=== PATIENT | female | born 1950 | race Caucasian/White ===

== ENCOUNTER 2022-11-04 11:25 | Outpatient (OUT) | payer MEDICARE, OTHER, SELFPAY ==
--- NOTE | 2022-11-04 11:27 | MM_ITS ---
Patient: ESDRAS MONTIEL Exam Date: 11/04/2022 : 1950 Gender:F Ordering : DR Rubio Samuel D.O. Admission #: [id number] Family : Order #: [id number] CLICK HERE TO VIEW EXAM RADIOLOGY REPORT PROCEDURE: MM TOMOSYNTHESIS SCREENING BI COMPARISON: MG MAMM SCREEN AMTT W CAD, 01/31/2020. MG MAMM SCREEN MATT W CAD, 07/03/2018. MG MAMM SCREEN MATT W CAD, 06/24/2016. MG MAMM MATT SCRN W CAD DIG, 02/27/2013. INDICATIONS: Screening mammogram Z12.31 Calculator Name NCI Breast Cancer Risk Assessment Tool 5 Year Breast Cancer Risk 3.20% Lifetime Breast Cancer Risk 9.20% Personal Breast Cancer No Personal Ovarian Cancer No Treatments None Family Cancers Mother with breast cancer at age 40. LOCATION: [facility] BREAST COMPOSITION: Scattered areas fibroglandular density. FINDINGS: DIAGNOSTIC CATEGORY 2--BENIGN FINDING: RIGHT BREAST: No significant suspicious finding. No significant change has occurred. LEFT BREAST: No significant suspicious finding. Scattered benign-appearing lymph nodes are present. No significant change has occurred. RECOMMENDATIONS: ROUTINE MAMMOGRAM AND CLINICAL EVALUATION IN 12 MONTHS. PLEASE NOTE: A NORMAL MAMMOGRAM DOES NOT EXCLUDE THE POSSIBILITY OF BREAST CANCER. A CLINICALLY SUSPICIOUS PALPABLE LUMP SHOULD BE BIOPSIED. Dictated by: Alexander Gentile M.D. on 11/04/2022 at 16:17 Approved by: Alexander Gentile M.D. on 11/04/2022 at 16:34
--- NOTE | 2022-11-04 11:36 | XR_ITS ---
[address] [address] Patient Name: ESDRAS MONTIEL MRN: [id number] date: 1950 Sex: F Assigned Patient Location: [facility] Current Patient Location: [facility] Accession/Order Number: [id number] Exam Date: 11/04/2022 11:54 Report Date: 11/04/2022 12:45 At the request of: JOSE CHINCHILLA Procedure: XR knee standing BI EXAMINATION: XR knee standing BI HISTORY: Osteoarthritis of bilateral knees M17.0 ; chronic bilateral hip and knee pain COMPARISON: No relevant comparison available. FINDINGS: RIGHT FINDINGS: BONES: Small periarticular degenerative osteophytes without significant joint space narrowing or articular surface irregularity. SOFT TISSUES: No visible soft tissue swelling. OTHER: Negative. LEFT FINDINGS: BONES: Small periarticular degenerative osteophytes without significant joint space narrowing or articular surface irregularity. SOFT TISSUES: No visible soft tissue swelling. OTHER: Negative. XR/XR knee standing BI IMPRESSION: RIGHT CONCLUSION: Minimal degenerative joint disease of the knee. LEFT CONCLUSION: Minimal degenerative joint disease of the knee. Electronically authenticated by: BENJAMIN RIDDLE Date: 11/04/2022 12:45
--- NOTE | 2022-11-04 11:36 | XR_ITS ---
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 FINDINGS: RIGHT FINDINGS: BONES: Moderate narrowing of the medial-cephalad joint space and suspected small subchondral cysts. Small degenerative osteophytes along the rim of the femoral head. SOFT TISSUES: No visible soft tissue swelling. OTHER: Negative. LEFT FINDINGS: BONES: Mild joint space narrowing. No fracture, dislocation, bone lesion. SOFT TISSUES: No visible soft tissue swelling. OTHER: Negative. XR/XR hip BI w PEL 1V IMPRESSION: RIGHT CONCLUSION: Moderate degenerative joint disease of the right hip. LEFT CONCLUSION: Mild degenerative joint disease of the left hip. Electronically authenticated by: BENJAMIN RIDDLE Date: 11/04/2022 12:48
== END 2022-11-04 11:26 | disposition home or self-care (01) ==
LOC: MAMMO 11:25
PROVIDERS: PCP Internal Medicine; Visit Provider Internal Medicine
DX: Z12.31 Encounter for screening mammogram for malignant neoplasm of breast (principal); Z80.3 Family history of malignant neoplasm of breast; M16.0 Bilateral primary osteoarthritis of hip; M17.0 Bilateral primary osteoarthritis of knee
CPT/HCPCS: 73523; 73565; 77063; 77067

== ENCOUNTER 2022-11-11 11:23 | Outpatient (OUT) | payer MEDICARE, OTHER, SELFPAY ==
[2022-11-11 11:52] LABS: Basophils Percent Auto 0.5 % (0.2-2.0); Eosinophils Absolute Auto 0.3 10^3/uL (0.0-0.7); Eosinophils Percent Auto 3.3 % (0.9-7.0); Hematocrit 37.3 % (36.0-48.0); Hemoglobin 12.1 g/dL (12.0-16.0); Immature Granulocytes Abs Auto 0.02 10^3/uL (0.00-0.03); Immature Granulocytes Pct Auto 0.2 % (0.0-0.5); Lymphocytes Absolute Auto 2.5 10^3/uL (1.2-3.8); Lymphocytes Percent Auto 29.1 % (20.5-60.0); Mean Corpuscular HGB Conc 32.4 g/dL (29.9-35.2); Mean Corpuscular Hemoglobin 27.4 pg (26.7-34.0); Mean Corpuscular Volume 84.6 fL (81.0-99.0); Mean Platelet Volume 9.5 fL (9.5-13.5); Monocytes Absolute Auto 0.7 10^3/uL (0.3-0.8); Neutrophils Percent Auto 58.9 % (43.0-75.0); Platelet Count 340 10^3/uL (150-450); Red Blood Count 4.41 10^6/uL (4.20-5.40); White Blood Count 8.5 10^3/uL (4.0-11.0)
[2022-11-11 12:33] LABS: Alanine Aminotransferase 22 U/L (14-59); Anion Gap 14.7; BUN Creatinine Ratio 19.6; Calcium 9.6 mg/dL (8.5-10.1); Carbon Dioxide 27.3 mmol/L (21.0-32.0); Chloride 101 mmol/L (98-107); Chol HDL Ratio 2.6; Cholesterol 167 mg/dL (<=200); Estimated GFR (African America >60 (>=60); Estimated GFR (Non-African Ame >60 (>=60); Glucose 115 mg/dL (74-106); HDL Cholesterol 65 mg/dL (40-60); Sodium 139 mmol/L (136-145); Thyroid Stimulating Hormone 1.907 uIU/mL (0.358-3.740); Triglycerides 71 mg/dL (<=150); VLDL CHOLESTEROL 14.2 mg/dL
== END 2022-11-11 11:24 | disposition home or self-care (01) ==
PROVIDERS: PCP Internal Medicine; Visit Provider Internal Medicine
DX: E78.00 Pure hypercholesterolemia, unspecified (principal); I10 Essential (primary) hypertension; R53.83 Other fatigue
CPT/HCPCS: 36415; 80048; 80061; 84443; 84460; 85025

== ENCOUNTER 2023-12-13 08:56 | Outpatient (OUT) | payer MEDICARE, OTHER, SELFPAY ==
--- NOTE | 2023-12-13 09:07 | CT_ITS ---
[address] [address] Patient Name: ESDRAS MONTIEL MRN: [id number] date: 1950 Sex: F Assigned Patient Location: MAMMO Current Patient Location: Accession/Order Number: [id number] Exam Date: 12/13/2023 09:45 Report Date: 12/14/2023 06:42 At the request of: JOSE CHINCHILLA Procedure: CT lung screening low-dose EXAMINATION: CT lung screening low-dose HISTORY: Nicotine Dependence COMPARISON: CT chest 11/10/2020 TECHNIQUE: Axial, Coronal, and Sagittal images were created without the administration of IV contrast material. Dose reduction techniques were achieved by using automated exposure control and/or adjustment of mA and/or kV according to patient size and/or use of iterative reconstruction technique. FINDINGS: LUNGS: No visible pulmonary disease. PLEURA: No mass, effusion, or pneumothorax. VASCULATURE: No abnormality. BARTOLO: No mass or pathologic adenopathy. MEDIASTINUM: No mass or pathologic adenopathy. CARDIAC: No enlargement, pericardial thickening, or pericardial effusion. Coronary Artery calcifications: AORTA: No aneurysm or dissection. CHEST WALL: No mass or axillary adenopathy BONES: No bone lesion or fracture. LIMITED ABDOMEN: No suspicious findings. Limited images of the upper abdomen. OTHER: Negative. CT/CT lung screening low-dose IMPRESSION: 1. Lung-RADS Category 1 Negative. No nodules and definitely benign nodules. Continue annual screening with LDCT in 12 months. Electronically authenticated by: BENJAMIN RIDDLE Date: 12/14/2023 06:42
--- NOTE | 2023-12-13 09:07 | MM_ITS ---
Patient Name: ESDRAS MONTIEL MR#: [id number] : 1950 Exam Date: 12/13/2023 Ordering Doctor: DR Rubio Samuel D.O. RADIOLOGY REPORT PROCEDURE: MM TOMOSYNTHESIS SCREENING BI COMPARISON: MM TOMOSYNTHESIS SCREENING BI, 11/04/2022. MG MAMM SCREEN MATT W CAD, 01/31/2020. MG MAMM SCREEN MATT W CAD, 07/03/2018. MG MAMM MATT SCRN W CAD DIG, 02/27/2013. INDICATIONS: Screening Calculator Name NCI Breast Cancer Risk Assessment Tool 5 Year Breast Cancer Risk 3.20% Lifetime Breast Cancer Risk 8.80% Personal Breast Cancer No Personal Ovarian Cancer No Treatments None Family Cancers Mother with breast cancer at age 40. LOCATION: [facility] BREAST COMPOSITION: There are scattered areas of fibroglandular density. FINDINGS: DIAGNOSTIC CATEGORY 2--BENIGN FINDING: RIGHT BREAST: No significant suspicious finding. No significant change has occurred. LEFT BREAST: No significant suspicious finding. Scattered benign-appearing nodules are present. Scattered benign-appearing lymph nodes are present. No significant change has occurred. RECOMMENDATIONS: ROUTINE MAMMOGRAM AND CLINICAL EVALUATION IN 12 MONTHS. PLEASE NOTE: A NORMAL MAMMOGRAM DOES NOT EXCLUDE THE POSSIBILITY OF BREAST CANCER. A CLINICALLY SUSPICIOUS PALPABLE LUMP SHOULD BE BIOPSIED. Dictated by: Alexander Gentile M.D. on 12/13/2023 at 16:59 Approved by: Alexander Gentile M.D. on 12/13/2023 at 17:02
[2023-12-13 10:18] LABS: Alanine Aminotransferase 35 U/L (14-59); Albumin Globulin Ratio 0.9; Albumin Level 3.6 g/dL (3.4-5.0); Alkaline Phosphatase 124 U/L (46-116); Anion Gap 10.3; Aspartate Amino Transferase 17 U/L (15-37); BUN Creatinine Ratio 23.6; Bilirubin Total 0.3 mg/dL (0.2-1.0); Carbon Dioxide 29.9 mmol/L (21.0-32.0); Chloride 101 mmol/L (98-107); Chol HDL Ratio 2.9; Cholesterol 173 mg/dL (<=200); Estimated GFR (African America >60 (>=60); Estimated GFR (Non-African Ame >60 (>=60); Globulin 3.8 g/dL; Glucose 115 mg/dL (74-106); HDL Cholesterol 59 mg/dL (40-60); LDL Cholesterol Calculated 98.4 mg/dL; Potassium 4.2 mmol/L (3.5-5.1); Sodium 137 mmol/L (136-145); Total Protein 7.4 g/dL (6.4-8.2); Triglycerides 78 mg/dL (<=150); VLDL CHOLESTEROL 15.6 mg/dL
[2023-12-13 10:22] LABS: Basophils Percent Auto 0.4 % (0.2-2.0); Eosinophils Absolute Auto 0.5 10^3/uL (0.0-0.7); Eosinophils Percent Auto 6.3 % (0.9-7.0); Hemoglobin 11.8 g/dL (12.0-16.0); Immature Granulocytes Abs Auto 0.02 10^3/uL (0.00-0.03); Immature Granulocytes Pct Auto 0.3 % (0.0-0.5); Lymphocytes Percent Auto 27.7 % (20.5-60.0); Mean Corpuscular HGB Conc 31.9 g/dL (29.9-35.2); Mean Corpuscular Hemoglobin 27.8 pg (26.7-34.0); Mean Corpuscular Volume 87.3 fL (81.0-99.0); Mean Platelet Volume 9.7 fL (9.5-13.5); Monocytes Absolute Auto 0.6 10^3/uL (0.3-0.8); Monocytes Percent Auto 8.2 % (1.7-12.0); Neutrophils Absolute Auto 4.1 10^3/uL (1.4-6.5); Neutrophils Percent Auto 57.1 % (43.0-75.0); Platelet Count 276 10^3/uL (150-450); Red Blood Count 4.24 10^6/uL (4.20-5.40); Red Cell Distribution Width 13.2 % (11.0-15.0); White Blood Count 7.2 10^3/uL (4.0-11.0)
== END 2023-12-13 08:57 | disposition home or self-care (01) ==
LOC: MAMMO 08:58
PROVIDERS: PCP Internal Medicine; Visit Provider Internal Medicine
DX: E78.00 Pure hypercholesterolemia, unspecified (principal); F17.211 Nicotine dependence, cigarettes, in remission; I10 Essential (primary) hypertension; I65.29 Occlusion and stenosis of unspecified carotid artery; Z12.31 Encounter for screening mammogram for malignant neoplasm of breast; Z80.3 Family history of malignant neoplasm of breast
CPT/HCPCS: 36415; 71271; 77063; 77067; 80053; 80061; 85025

== ENCOUNTER 2024-12-21 09:26 | Outpatient (OUT) | payer MEDICARE, OTHER, SELFPAY ==
--- OUTSIDE RECORDS SUMMARY | 2024-12-21 09:41 | XMS_ITS | CCD ---
Author Organization [facility] Care Team Providers Care Shell Maker Lockstitch Name Role Phone PHYSICIAN, DEFAULT Unavailable Unavailable PHYSICIAN, DEFAULT Unavailable Unavailable LUIS HAYNES Unavailable Unavailable Fidelia Velásquez Unavailable DO Rubio Samuel Primary Care Provider [phone] MD Fransico Brady Attending Provider PAUL, DR TANGELA Curran Admitting Unavailable MILLER, DR TANGELA Curran Attending Unavailable BALL, DR GARCIA Primary Care Unavailable MILLER, DR TANGELA Curran Consulting Unavailable WEST, DR RIVERA Stephens Consulting Unavailable ZIEBER, DR ALEXANDER Lei Consulting Unavailable GRECHKARAN, JAIME CARBAJAL Consulting Unavailable SISTER, AMILCAR Consulting Unavailable BALL, DR GARCIA Admitting Unavailable BALL, DR GARCIA Attending Unavailable BALL, DR GARCIA Consulting Unavailable BALL, DR GARCIA Primary Care Unavailable ZIEBER, DR ALEXANDER Lei Consulting Unavailable BALL, DR GARCIA Attending Unavailable BALL, DR GARCIA Consulting Unavailable BALL, DR GARCIA Primary Care Unavailable BALL, DR GARCIA Admitting Unavailable BALL, DR GARCIA Admitting Unavailable BALL, DR GARCIA Attending Unavailable BALL, DR GARCIA Consulting Unavailable BALL, DR GARCIA Primary Care Unavailable BALL, DR GARCIA Admitting Unavailable BALL, DR GARCIA Attending Unavailable BALL, DR GARCIA Consulting Unavailable BALL, DR GARCIA Primary Care Unavailable BALL, DR GARCIA Admitting Unavailable BALL, DR GARCIA Attending Unavailable BALL, DR GARCIA Primary Care Unavailable PAY, DR SHEPARD Attending Unavailable BALL, DR GARCIA Primary Care Unavailable PAY, DR SHEPARD Admitting Unavailable GRECHKARAN, JAIME CARBAJAL Consulting Unavailable TAYLOR HONEYCUTT Consulting Unavailable Rubio Samuel Unavailable DO Rubio Samuel Primary Care Provider SHANTA Velásquez Attending Provider Rubio Samuel DO Primary Care Provider [phone] Didier ODD PIECE CHECKER-CFidelia Attending Provider Fidelia Velásquez Attending Unavailable Rubio Samuel Primary Care Unavailable Fidelia Velásquez Admitting Unavailable Fidelia Velásquez Attending Unavailable Rubio Samuel Primary Care Unavailable Fidelia Velásquez Admitting Unavailable Rubio Samuel DO Primary Care Provider [phone] Didier ODD PIECE CHECKER-CFidelia Attending Provider Rubio Samuel DO Attending Provider [phone] Allergies Allergy Classification Reported Allergen(s) Allergy Type Date of Onset Reaction(s) Facility (10 sources) Acetaminophen / HYDROcodone; Translations: [Vicodin] Drug Allergy stomach upset [facility] Repository (9 sources) Acetaminophen; Translations: [acetaminophen] Drug Allergy 03-17-20 22 Shakiness, Shakiness, stomach upset [facility] (9 sources) HYDROcodone; Translations: [hydrocodone] Drug Allergy 03-17-20 22 Shakiness, Shakiness, stomach upset [facility] (10 sources) nabumetone Drug Allergy 09-05-19 24 Unknown, Unknown Reaction [facility] (2 sources) patient allergy list reviewed by nurse or physicia Propensity to adverse reactions 04-13-19 14 Comment:Done [facility] Other (1 source) nabumetone Drug Allergy 09-19-19 25 [facility] Repository Medications Current Medications Medication Drug Class(es) Dates Sig (Normalized) Sig (Original) ascorbic acid 1000 mg oral tablet (9 sources) Vitamin C Start: 08-06-2021 take 1 g by mouth once daily Ascorbic Acid (Vitamin C) (Vitamin C) 1,000 mg Tablet Active 1 GM PO Daily August 06, 2021 12:00am Complies with drug therapy aspirin 81 mg oral tablet (12 sources) Platelet Aggregation Inhibitor, Nonsteroidal Anti-inflammatory Drug Start: 03-17-2022 take 1 tablet by mouth once daily Aspirin 81 mg Tablet Active 81 MG PO Daily March 17, 2022 1:00am Complies with drug therapy take 1 tablet by andrea th every twenty-four hours Aspirin 81 MG 1 tablet Orally Once a day Active atorvastatin 20 mg oral tablet (20 sources) HMG-CoA Reductase Inhibitor Start: 11-20-2024 take 1 tablet by mouth once daily in the evening Atorvastatin 20 mg tablet Active 20 MG PO Every evening November 20, 2024 5:43pm Complies with drug therapy Start: 12-01-2023 End: 11-20-2024 take 1 tablet by mouth once daily in the evening Atorvastatin 20 mg tablet Discontinued 0 .ROUTE .COMPLEX December 01, 2023 9:59am November 20, 2024 5:44pm TAKE 1 TABLET BY MOUTH EVERY EVENING Start: 03-17-2022 End: 12-01-2023 take 1 tablet by mouth at bedtime Atorvastatin 20 mg tablet Discontinued 20 MG PO Bedtime March 17, 2022 1:00am December 01, 2023 10:00am celecoxib 200 mg oral capsule (11 sources) Nonsteroidal Anti-inflammatory Drug Start: 02-19-2024 take 1 capsule by mouth once daily at mealtime Celecoxib 200 mg capsule Active 0 .ROUTE .COMPLEX February 19, 2024 7:17pm TAKE 1 CAPSULE BY MOUTH DAILY WITH FOOD Complies with drug therapy Start: 08-16-2023 End: 02-19-2024 take 1 capsule by mouth once daily Celecoxib 200 mg capsule Discontinued 200 MG PO Daily August 16, 2023 12:00am February 19, 2024 7:17pm take 1 capsule by mo [facility] once daily at mealtime Celecoxib 200 mg TAKE 1 CAPSULE BY MOUTH WITH FOOD DAILY Active cholecalciferol 0.125 mg oral tablet (9 sources) Vitamin D Start: 08-06-2021 take 1 tablet by mouth once daily Cholecalciferol (Vitamin D3) (Vitamin D3) 125 mcg (5,000 unit) Tablet Active 125 MCG PO Daily August 06, 2021 12:00am Complies with drug therapy escitalopram 10 mg oral tablet (20 sources) Serotonin Reuptake Inhibitor Start: 11-20-2024 take 1 tablet by mouth once daily Escitalopram Oxalate 10 mg tablet Active 10 MG PO Daily November 20, 2024 5:44pm Complies with drug therapy Start: 06-06-2023 End: 11-20-2024 take 1 tablet by mouth once daily at bedtime Escitalopram Oxalate 10 mg tablet Discontinued 0 .ROUTE .COMPLEX May 30, 2024 2:16pm November 20, 2024 5:44pm TAKE 1 TABLET BY MOUTH ONCE DAILY AT BEDTIME Start: 08-06-2021 End: 06-06-2023 take 1 tablet by mouth once daily Escitalopram Oxalate 10 mg tablet Discontinued 10 MG PO Daily 90 90 May 23, 2023 6:53pm June 06, 2023 1:58pm famotidine 40 mg oral tablet (20 sources) Histamine-2 Receptor Antagonist Start: 06-06-2023 End: 05-30-2024 take 1 tablet by mouth in the evening Famotidine 40 mg tablet Active 0 .ROUTE .COMPLEX May 30, 2024 2:16pm TAKE 1 TABLET BY MOUTH IN THE EVENING Complies with drug therapy Start: 06-06-2023 take 1 tablet by andrea th in the evening Famotidine Active 0 .ROUTE .COMPLEX June 06, 2023 1:57pm TAKE 1 TABLET BY MOUTH IN THE EVENING Start: 03-17-2022 End: 06-06-2023 take 1 tablet by mouth once daily Famotidine 40 mg tablet Discontinued 40 MG PO Daily March 17, 2022 1:00am June 06, 2023 1:58pm ferrous sulfate 325 mg oral tablet (8 sources) Start: 03-17-2022 take 1 tablet by mouth once daily Ferrous Sulfate (Iron) 325 mg (65 mg iron) Tablet Active 325 MG PO Daily March 17, 2022 1:00am Complies with drug therapy gabapentin 100 mg oral capsule (16 sources) Anti-epileptic Agent Start: 11-06-2024 take 2 capsules by mouth once daily at bedtime Gabapentin 100 mg capsule Active 200 MG PO Daily at bedtime 180 November 06, 2024 8:22am Complies with drug therapy Start: 11-14-2023 End: 11-06-2024 take 2 capsules by mouth at bedtime Gabapentin 100 mg capsule Discontinued 0 .ROUTE .COMPLEX 180 May 06, 2024 10:01am November 06, 2024 8:23am TAKE 2 CAPSULES BY MOUTH AT BEDTIME Start: 11-14-2023 take 2 capsules by m outh at bedtime Gabapentin Active 0 .ROUTE .COMPLEX 180 November 14, 2023 1:12pm TAKE 2 CAPSULES BY MOUTH AT BEDTIME Start: 08-16-2023 End: 11-14-2023 take 1 capsule by mouth once daily Gabapentin 100 mg capsule Discontinued 100 MG PO Daily August 16, 2023 12:00am November 14, 2023 1:12pm take 2 capsules by m outh once daily at bedtime Gabapentin 100 MG TAKE 2 CAPSULE BY MOUTH DAILY AT BEDTIME Orally q HS for 90 days Active take 1 capsule by mo [facility] once at bedtime Gabapentin 100 MG 1 capsule Orally Once a day, q HS for 30 days Active hydroCHLOROthiazide 25 mg / lisinopril 20 mg oral tablet (20 sources) Thiazide Diuretic, Angiotensin Converting Enzyme Inhibitor Start: 11-20-2024 take 1 tablet by mouth once daily Lisinopril-Hydrochlorothiazide 20-25 mg tablet Active 1 TAB PO Daily 90 November 20, 2024 5:43pm Complies with drug therapy Start: 12-01-2023 End: 11-20-2024 take 1 tablet by mouth once daily Lisinopril-Hydrochlorothiazide 20-25 mg tablet Discontinued 0 .ROUTE .COMPLEX December 01, 2023 10:00am November 20, 2024 5:44pm TAKE 1 TABLET BY MOUTH DAILY Start: 08-06-2021 End: 12-01-2023 take 1 tablet by mouth once daily Lisinopril-Hydrochlorothiazide 20-25 mg tablet Discontinued 1 TAB PO Daily August 06, 2021 12:00am December 01, 2023 10:00am Lisinopril-hydro CHLOROthiazide 20-25 MG Oral for 90 Days Active hydrocortisone 10 mg/ml / neomycin 3.5 mg/ml / polymyxin b [id number] unt/ml otic suspension (2 sources) Aminoglycoside Antibacterial, Polymyxin-class Antibacterial, Corticosteroid Start: 11-11-2022 [id number] 4 drops into affected ear Otic Three times a day for 7 days Nov, Active metoprolol tartrate 25 mg oral tablet (20 sources) beta-Adrenergic Gerardo Start: 11-20-2024 take 1 tablet by mouth twice daily Metoprolol Tartrate 25 mg tablet Active 25 MG PO Twice daily 180 November 20, 2024 5:44pm Complies with drug therapy Start: 12-01-2023 End: 11-20-2024 take 1 tablet by mouth twice daily Metoprolol Tartrate 25 mg tablet Discontinued 0 .ROUTE .COMPLEX 180 December 01, 2023 9:59am November 20, 2024 5:44pm TAKE 1 TABLET BY MOUTH TWICE DAILY Start: 08-06-2021 End: 12-01-2023 take 1 tablet by mouth twice daily Metoprolol Tartrate 25 mg tablet Discontinued 25 MG PO Twice daily August 06, 2021 12:00am December 01, 2023 10:00am Start: 08-06-2021 take 25 mg by mouth once daily Metoprolol Tartrate Active 25 MG PO Daily August 05, 2021 11:00pm Geauuxhkpjgq-Ltqtbafe-Zaizwo (Multivitamin 50 Plus) Tablet (9 sources) Start: 08-06-2021 Zoxhdjwbrjcc-Sdyhcomx-Wqpwif (Multivitamin 50 Plus) Tablet Active 1 TAB PO Daily August 06, 2021 12:00am Complies with drug therapy Start: 08-06-2021 Multivitamin-M inerals-Lutein (Multivitamin 50 Plus) Tablet Active 1 TAB PO Daily August 06, 2021 12:00am Start: 08-06-2021 Multivitamin-M inerals-Lutein (Multivitamin 50 Plus) Tablet Active 1 TAB PO Daily August 05, 2021 11:00pm [place] 2-Lar-Uuh-Fish Oil (Fish Oil) 1,000 mg (120 mg-180 mg) Capsule (9 sources) Start: 08-06-2021 take 1 capsule by mouth once daily [place] 7-Ofp-Mqr-Fish Oil (Fish Oil) 1,000 mg (120 mg-180 mg) Capsule Active 1 CAP PO Daily August 06, 2021 12:00am Complies with drug therapy Start: 08-06-2021 take 1 capsule by [facility] once daily [place] 7-Fqt-Yuw-Fish Oil (Fish Oil) 1,000 mg (120 mg-180 mg) Capsule Active 1 CAP PO Daily August 06, 2021 12:00am Start: 08-06-2021 take 1 capsule by [facility] once daily [place] 9-Yah-Mid-Fish Oil (Fish Oil) 1,000 mg (120 mg-180 mg) Capsule Active 1 CAP PO Daily August 05, 2021 11:00pm Semaglutide (2 sources) Start: 06-11-2024 Semaglutide (O zempic) 0.25 mg or 0.5 mg (2 mg/3 mL) pen injector Active 0.25 MG SUBCUT every week June 11, 2024 12:00am for 4 weeks Complies with drug therapy Start: 06-11-2024 Semaglutide (O zempic) 0.25 mg or 0.5 mg (2 mg/3 mL) pen injector Active 0.25 MG SUBCUT every week June 11, 2024 12:00am for 4 weeks traMADol hydrochloride 50 mg oral tablet (20 sources) Opioid Agonist Start: 03-07-2024 End: 12-05-2024 take 1 tablet by mouth every six hours as needed for pain Tramadol 50 mg tablet Active 50 MG PO Every 6 hours as needed for pain 120 December 05, 2024 4:33pm Complies with drug therapy Start: 08-06-2021 End: 03-07-2024 take 1 tablet by mouth four times daily as needed for pain Tramadol 50 mg tablet Discontinued 50 MG PO Four times daily as needed for Pain 120 October 31, 2023 10:08am March 07, 2024 9:33pm ubidecarenone 200 mg oral capsule (9 sources) Start: 08-06-2021 Coenzyme Q10 ( Co Q-10) 200 mg Capsule Active 200 MG PO Daily August 06, 2021 12:00am Complies with drug therapy Vitamin B Complex (6 sources) Start: 08-06-2021 take 1 tablet by mouth once daily Vitamin B Complex Active 1 TAB PO Daily August 06, 2021 12:00am Start: 08-06-2021 take 1 tablet by mouth once da alla Vitamin B Complex Active 1 TAB PO Daily August 05, 2021 11:00pm Vitamin B Complex Tablet (3 sources) Start: 08-06-2021 take 1 tablet by mouth once daily Vitamin B Complex Tablet Active 1 TAB PO Daily August 06, 2021 12:00am Complies with drug therapy Start: 08-06-2021 take 1 tablet by mouth once da alla Vitamin B Complex Tablet Active 1 TAB PO Daily August 06, 2021 12:00am Start: 08-06-2021 take 1 tablet by mouth once da alla Vitamin B Complex Tablet Active 1 TAB PO Daily August 05, 2021 11:00pm Zinc (8 sources) Start: 03-17-2022 take 1 tablet by andrea th once daily Zinc 50 mg Tablet Active 50 MG PO Daily March 17, 2022 1:00am Complies with drug therapy Start: 03-17-2022 take 1 tablet by mouth once da alla Zinc 50 mg Tablet Active 50 MG PO Daily March 17, 2022 1:00am Start: 03-17-2022 take 1 tablet by mouth once da alla Zinc 50 mg Tablet Active 50 MG PO Daily March 17, 2022 12:00am Start: 03-17-2022 take 50 mg by mouth once daily Zinc Active 50 MG PO Daily March 17, 2022 1:00am Start: 03-17-2022 take 50 mg by mouth once daily Zinc Active 50 MG PO Daily March 17, 2022 12:00am Completed/Discontinued Medications Medication Drug Class(es) Dates Sig (Normalized) Sig (Original) hyoscyamine sulfate 0.125 mg sublingual tablet (9 sources) Start: 08-06-2021 End: 03-17-2022 take 1 tablet under the tongue four times daily as needed Hyoscyamine Sulfate 0.125 mg tablet, sublingual Discontinued 0.125 MG SUBLINGUAL Four times daily as needed for Abdominal Discomfort August 06, 2021 12:00am March 17, 2022 1:42pm ondansetron 4 mg disintegrating oral tablet (9 sources) Serotonin-3 Receptor Antagonist Start: 08-06-2021 End: 03-17-2022 Ondansetron 4 mg tablet,disintegra ting Discontinued 4 MG TRANSLINGU Q6H as needed for Nausea August 06, 2021 12:00am March 17, 2022 1:42pm promethazine hydrochloride 25 mg oral tablet (9 sources) Phenothiazine Start: 08-06-2021 End: 03-17-2022 take 1 tablet by mouth every six hours as needed for nausea Promethazine 25 mg tablet Discontinued 25 MG PO Every 6 hours as needed for Nausea August 06, 2021 12:00am March 17, 2022 1:42pm Problems Active Problems Problem Classification Problem Date Documented Da te Episodic/Chronic Acute and unspecified renal failure (4 sources) Acute kidney failure, unspecified; Translations: [Acute renal failure syndrome] Episodic Anxiety disorders (16 sources) Anxiety disorder, unspecified; Translations: [Generalized anxiety disorder] Onset: 02-02-2022 Chronic Cardiac dysrhythmias (4 sources) Ventricular premature depolarization; Translations: [Ventricular premature complex] Onset: 02-17-2017 Chronic Cardiac dysrhythmias (2 sources) Palpitations; Translations: [Palpitations] Episodic Chronic kidney disease (1 source) Chronic kidney disease; Translations: [CHRONIC KIDNEY DISEASE STAGE 3A] Onset: 06-25-2021 Chronic obstructive pulmonary disease and bronchiectasis (2 sources) Simple chronic bronchitis; Translations: [Simple chronic bronchitis] Chronic Conditions associated with dizziness or vertigo (2 sources) Dizziness and giddiness; Translations: [Dizziness and giddiness] Episodic Deficiency and other anemia (2 sources) Iron deficiency anemia secondary to blood loss (chronic); Translations: [IRON DEFIC ANEMIA SEC BLD LOSS CHRN] Onset: 03-30-2022 Chronic Deficiency and other anemia (1 source) Anemia due to chronic blood loss; Translations: [Iron deficiency anemia secondary to blood loss (chronic)] Chronic Deficiency and other anemia (13 sources) Iron deficiency anemia; Translations: [Iron deficiency anemia, unspecified] 03-17-2022 Episodic Comment on above: Problem List clean-u p per request of Phys. EHR Cmte Deficiency and other anemia (3 sources) Iron deficiency anemia, unspecified; Translations: [Iron deficiency anemia, unspecified] Onset: 02-02-2022 03-17-2022 Episodic Diseases of white blood cells (1 source) Elevated white blood cell count, unspecified; Translations: [ELEVATED WHITE BLOOD CELL COUNT UNS] Onset: 02-02-2022 Chronic Disorders of lipid metabolism (20 sources) Familial hypercholesterolemi a; Translations: [Hyperlipidemia] Onset: 04-05-2017 Chronic Esophageal disorders (17 sources) Gastro-esophageal reflux disease without esophagitis; Translations: [Gastroesophageal reflux disease without esophagitis] 08-14-2023 Chronic Essential hypertension (20 sources) Essential (primary) hypertension; Translations: [Essential hypertension] Onset: 02-02-2022 Chronic Fluid and electrolyte disorders (2 sources) Dehydration; Translations: [Hypokalemia] Onset: 07-14-2021 Episodic Hypertension with complications and secondary hypertension (6 sources) Hypertensive chronic kidney disease with stage 1 through stage 4 chronic kidney disease, or unspecified chronic kidney disease; Translations: [Malignant hypertensive chronic kidney disease] Onset: 06-22-2021 Chronic Immunizations and screening for infectious disease (2 sources) Encounter for immunization; Translations: [Vaccination given] Episodic Intestinal infection (9 sources) Enterocolitis due to Clostridium difficile, not specified as recurrent; Translations: [Viral intestinal infection, unspecified] Onset: 10-14-2017 Resolved: 07-19-2019 Episodic Menopausal disorders (2 sources) Primary ovarian failure; Translations: [Other primary ovarian failure] Onset: 04-20-2018 Chronic Miscellaneous mental health disorders (2 sources) Primary insomnia; Translations: [Primary insomnia] Chronic Mood disorders (12 sources) Major depressive disorder, single episode, unspecified; Translations: [Depression] Onset: 02-02-2022 08-14-2023 Chronic Mood disorders (1 source) Mood disorders; Translations: [Depression, unspecified] Nonspecific chest pain (10 sources) Chest pain, unspecified; Translations: [Precordial pain] Onset: 01-11-2014 Episodic Nutritional deficiencies (3 sources) Vitamin D deficiency, unspecified; Translations: [Vitamin D deficiency] Onset: 06-25-2021 Chronic Occlusion or stenosis of precerebral arteries (20 sources) Occlusion and stenosis of multiple and bilateral cerebral arteries; Translations: [Occlusion and stenosis of bilateral carotid arteries] Onset: 01-29-2022 Chronic Comment on above: Carotid US: 50-69% B /L stenosis - 08/2022, 09/2023, 01/2024 Osteoarthritis (20 sources) Unspecified osteoarthritis, unspecified site; Translations: [Osteoarthritis] Onset: 07-14-2021 08-16-2023 Chronic Other aftercare (1 source) bed bug exterminator (current) use of aspirin; Translations: [HALFWAY CURRENT USE OF ASPIRIN] Onset: 02-02-2022 Episodic Other aftercare (2 sources) Other longwall foreman (current) drug therapy; Translations: [OTH HALFWAY CURRENT DRUG THERAPY] Onset: 02-02-2022 Episodic Other aftercare (4 sources) Drug therapy finding; Translations: [halfway (current) use of opiate analgesic] 05-18-2024 Episodic Other aftercare (2 sources) bed bug exterminator (current) use of opiate analgesic; Translations: [Long-term (current) use of other medications] 05-18-2024 Episodic Other ear and sense organ disorders (2 sources) Otitis externa of left ear; Translations: [Other otitis externa, left ear] Chronic Other ear and sense organ disorders (2 sources) Malignant otitis externa; 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 BOOGIE Cmte Other gastrointestinal disorders (5 sources) Diarrhea, unspecified; Translations: [DIARRHEA UNSPECIFIED] Onset: 07-10-2021 Episodic Other hereditary and degenerative nervous system conditions (2 sources) Restless legs; Translations: [Restless legs syndrome] Chronic Other hereditary and degenerative nervous system conditions (1 source) Restless legs syndrome Chronic Other injuries and conditions due to external causes (1 source) History of falling; Translations: [History of falling] Episodic Other injuries and conditions due to external causes (1 source) History of fall; Translations: [History of falling] Episodic Other non-traumatic joint disorders (2 sources) Arthralgia of the lower leg; Translations: [Pain in right knee] Episodic Other non-traumatic joint disorders (1 source) Shoulder joint pain; Translations: [Pain in joint, shoulder region] Episodic Other nutritional; endocrine; and metabolic disorders (2 sources) Simple obesity ; Translations: [Other obesity due to excess calories] Onset: 02-10-2016 Chronic Other nutritional; endocrine; and metabolic disorders (6 sources) Obesity; Translations: [Obesity, unspecified] 05-18-2024 Chronic Other nutritional; endocrine; and metabolic disorders (2 sources) Obese class I; Translations: [Body mass index 32.0-32.9, adult] Onset: 02-15-2017 Chronic Other nutritional; endocrine; and metabolic disorders (1 source) Severe obesity; Translations: [Morbid (severe) obesity due to excess calories] Chronic Other nutritional; endocrine; and metabolic disorders (1 source) Body mass index 30+ - obesity; Translations: [Body mass index (BMI) 37.0-37.9, adult] Chronic Other nutritional; endocrine; and metabolic disorders (1 source) Morbid (severe) obesity due to excess calories Chronic Other nutritional; endocrine; and metabolic disorders (1 source) Body mass index (BMI) 37.0-37.9, adult Chronic Other nutritional; endocrine; and metabolic disorders (2 sources) Obesity, unspecified; Translations: [Obesity, unspecified] 05-18-2024 Chronic Other screening for suspected conditions (not mental disorders or infectious disease) (8 sources) Abnormal results of thyroid function studies; Translations: [Other specified abnormal findings of blood chemistry] Onset: 03-30-2022 11-29-2023 Episodic Residual codes; unclassified (1 source) Requires influenza virus vaccination; Translations: [Need for prophylactic vaccination and inoculation, Influenza] Episodic Septicemia (except in labor) (2 sources) Other specified sepsis; Translations: [Severe sepsis without septic shock] Onset: 02-02-2022 Episodic Spondylosis; intervertebral disc disorders; other back problems (20 sources) Lumbar spondylosis; Translations: [Spondylosis without myelopathy or radiculopathy, lumbar region] Chronic Substance-related disorders (20 sources) Smoker; Translations: [Nicotine dependence, unspecified, uncomplicated] Onset: 12-14-2013 Chronic Comment on above: Start age 17, 1 ppd, age quit 72.LDCT w/o suspicious nodules: 12/2023, Syncope (3 sources) Syncope and collapse; Translations: [SYNCOPE AND COLLAPSE] Onset: 01-25-2022 Episodic Thyroid disorders (3 sources) Other specified hypothyroidism; Translations: [Hypothyroidism] Onset: 02-02-2022 Chronic Thyroid disorders (6 sources) Sick-euthyroid syndrome; Translations: [Sick-euthyroid syndrome] Onset: 03-22-2022 Episodic Unclassified (1 source) ACIDOSIS UNSPECIFIED; Translations: [ACIDOSIS UNSPECIFIED] Onset: 02-02-2022 Unclassified (1 source) PERSONAL HISTORY OF COVID-19; Translations: [PERSONAL HISTORY OF COVID-19] Onset: 02-02-2022 Unclassified (1 source) CONTACT W/AND (SUSP) EXPOS COVID-19; Translations: [CONTACT W/AND (SUSP) EXPOS COVID-19] Onset: 02-02-2022 Unclassified (1 source) Other screening mammogram; Translations: [Other screening mammogram] Onset: 02-10-2016 Unclassified (2 sources) Elevation of levels of liver transaminase levels; Translations: [Elevation of levels of liver transaminase levels] Unclassified (1 source) Pain in joint, shoulder region; Translations: [Pain in joint, shoulder region] Unclassified (1 source) Bacterial infection, unspecified, in conditions classified elsewhere and of unspecified site; Translations: [Bacterial infection, unspecified, in conditions classified elsewhere and of unspecified site] Onset: 07-31-2018 Unclassified (1 source) Need for prophylactic vaccination and inoculation, Influenza; Translations: [Need for prophylactic vaccination and inoculation, Influenza] Viral infection (2 sources) COVID-19; Translations: [Disease caused by 2019-nCoV] Past or Other Problems Problem Classification Problem Date Documented Date Episodic/Chronic Abdominal hernia (2 sources) Diaphragmatic hernia; Translations: [Diaphragmatic hernia without obstruction or gangrene] Onset: 03-17-2022 Episodic Abdominal pain (2 sources) Abdominal pain; Translations: [Unspecified abdominal pain] Onset: 09-03-2014 Episodic Acute bronchitis (2 sources) Acute bronchitis, unspecified; Translations: [Acute bronchitis] Onset: 01-11-2014 Episodic Bacterial infection; unspecified site (1 source) Bacterial infectious disease; Translations: [Bacterial infection, unspecified, in conditions classified elsewhere and of unspecified site] Onset: 07-31-2018 Episodic Esophageal disorders (1 source) Esophageal disorders Malaise and fatigue (2 sources) Other malaise and fatigue; Translations: [Malaise and fatigue] Onset: 04-05-2017 Episodic Nausea and vomiting (1 source) Vomiting, unspecified; Translations: [VOMITING UNSPECIFIED] Onset: 07-14-2021 Episodic Other circulatory disease (1 source) Other specified symptoms and signs involving the circulatory and respiratory systems; Translations: [Other specified symptoms and signs involving the circulatory and respiratory systems] Resolved: 06-22-2021 Episodic Other circulatory disease (3 sources) Cardiovascular symptoms; Translations: [Other specified symptoms and signs involving the circulatory and respiratory systems] Resolved: 06-22-2021 Episodic Other liver diseases (2 sources) Elevated levels of transaminase & lactic acid dehydrogenase; Translations: [Nonspecific elevation of levels of transaminase or lactic acid dehydrogenase (LDH)] Onset: 09-03-2014 Episodic Other lower respiratory disease (1 source) Other forms of dyspnea; Translations: [Other forms of dyspnea] Onset: 02-17-2017 Episodic Other lower respiratory disease (1 source) Dyspnea; Translations: [Other forms of dyspnea] Onset: 02-17-2017 Episodic Other nervous system disorders (2 sources) Ataxia; Translations: [Ataxia, unspecified] Resolved: 07-13-2021 Episodic Other upper respiratory infections (2 sources) Acute recurrent maxillary sinusitis; Translations: [Acute maxillary sinusitis] Onset: 07-31-2018 Episodic Residual codes; unclassified (1 source) Tobacco use; Translations: [Tobacco use] Onset: 12-14-2013 Episodic Residual codes; unclassified (1 source) Disorientation, unspecified; Translations: [Disorientation, unspecified] Resolved: 06-21-2021 Episodic Residual codes; unclassified (3 sources) Tobacco user; Translations: [Nondependent tobacco use disorder] Onset: 12-14-2013 Episodic Residual codes; unclassified (3 sources) Disorientated; Translations: [Disorientation, unspecified] Resolved: 06-21-2021 Episodic Results Test Name Value Interpretation Reference Range Facility US carotid doppler BIon 09-02 US carotid doppler BI [facility] [address] [place] [address] Ultrasound Report Signed Patient: Ruby Verdugo MR#: [id number] 87 : 1950 Acct:[id number] Age/Sex: 73 / F ADM Date: 09/18/24 Loc: [facility] Room: Type: [facility] Attending Dr: Fidelia Velásquez ODD PIECE CHECKER-C Ordering Provider: Fidelia Velásquez APRN Date of Service: 09/18/24 US/US carotid doppler BI: I65.23 - Occlusion and stenosis of bilateral carotid apple... Copies to: Fidelia Velásquez APRN CAROTID DUPLEX INDICATION: Follow-up known carotid occlusive disease PROCEDURE: Color-flow duplex scanning is used to interrogate the extracranial carotid arterial system, as well as both vertebral arteries. Both carotid bifurcations show moderate heterogeneous plaque formation. The proximal right internal carotid artery shows a highest peak systolic velocity of 201 cm/s with an end-diastolic velocity of 69.5 cm/s . The mid internal carotid artery measures 91.7 cm/s peak systolic and 31.4 cm/s end diastolic. The distal segment measures 107 cm/s peak systolic with an end diastolic velocity of 36.1 cm/s . The velocities of the right common carotid artery are 83.9 cm/s peak systolic and 15.5 cm/s end-diastolic proximally and 69.3 cm/s peak systolic and 20.1 cm/s end diastolic distally. The peak systolic velocity ratio of the internal to the common carotid artery is 2.9. The right external carotid artery measures 115 cm/s peak systolic. The right vertebral artery is patent at 92.6 cm/s with antegrade flow. The proximal left internal carotid artery shows a highest peak systolic velocity of 92.2 cm/s with an end-diastolic velocity of 25.2 cm/s . The mid internal carotid artery measures 88.9 cm/s peak systolic and 19.8 cm/s end diastolic. The distal segment measures 216 cm/s peak systolic with an end diastolic velocity of 79 cm/s . The velocities of the left common carotid artery are 79.2 cm/s peak systolic and 16.5 cm/s end-diastolic proximally and 69 cm/s peak systolic and 17.2 cm/s end diastolic distally. The peak systolic velocity ratio of the internal to the common carotid artery is 3.13 . The left external carotid artery measures 82.6 cm/s peak systolic. The left vertebral artery is patent at 146 cm/s with antegrade flow. US/US carotid doppler BI IMPRESSION: MODERATE PLAQUE FORMATION IS NOTED BILATERAL EXTRACRANIAL CAROTID ARTERIES. MODERATE STENOSIS OF 50-69% WAS FOUND IN THE BILATERAL INTERNAL CAROTID ARTERIES. Impression dictated by: Drea Greene M.D. 09/18/2024 1:54 PM Dictation Location: [place] [address] Tech: Mendy Mcintyre Transcribed By: ORQUIDEA 09/18/24 1354 Dictated By: Drea Greene MD 09/18/24 1353 Signed By: 09/18/24 1354 Normal [facility] US carotid doppler BIon 12- US carotid doppler BI [facility] [address] [place] [address] Ultrasound Report Signed Patient: Ruby Verdugo MR#: [id number] 87 : 1950 Acct:[id number] Age/Sex: 73 / F ADM Date: 03/13/24 Loc: [facility] Room: Type: [facility] Attending Dr: Fidelia Velásquez ODD PIECE CHECKER-C Ordering Provider: Fidelia Velásquez APRN Date of Service: 03/13/24 US/US carotid doppler BI: I65.23 - Occlusion and stenosis of bilateral carotid apple... Copies to: Fidelia Velásquez APRN CAROTID DUPLEX INDICATION: Follow-up known carotid occlusive disease PROCEDURE: Color-flow duplex scanning is used to interrogate the extracranial carotid arterial system, as well as both vertebral arteries. Both carotid bifurcations show mild to moderate heterogeneous plaque formation. The proximal right internal carotid artery shows a highest peak systolic velocity of 232 cm/s with an end-diastolic velocity of 56.2 cm/s . The mid internal carotid artery measures 95.3 cm/s peak systolic and 25.5 cm/s end diastolic. The distal segment measures 83.4 cm/s peak systolic with an end diastolic velocity of 22.8 cm/s . The velocities of the right common carotid artery are 101 cm/s peak systolic and 0 cm/s end-diastolic proximally and 88.2 cm/s peak systolic and 18.6 cm/s end diastolic distally. The peak systolic velocity ratio of the internal to the common carotid artery is 2.63. The right external carotid artery measures 138 cm/s peak systolic. The right vertebral artery is patent at 80.8 cm/s with antegrade flow. The proximal left internal carotid artery shows a highest peak systolic velocity of 114 cm/s with an end-diastolic velocity of 18.2 cm/s . The mid internal carotid artery measures 198 cm/s peak systolic and 48.8 cm/s end diastolic. The distal segment measures 204 cm/s peak systolic with an end diastolic velocity of 59.8 cm/s . The velocities of the left common carotid artery are 119 cm/s peak systolic and 16.2 cm/s end-diastolic proximally and 94.4 cm/s peak systolic and 17.3 cm/s end diastolic distally. The peak systolic velocity ratio of the internal to the common carotid artery is 2.16 . The left external carotid artery measures 106 cm/s peak systolic. The left vertebral artery is patent at 138 cm/s with antegrade flow. US/US carotid doppler BI IMPRESSION: Moderate plaque formation is noted bilaterally. 50-69% stenosis is seen in the right extracranial internal carotid artery is likely toward the higher end of that spectrum. 50-69% stenosis is noted in the left extracranial internal carotid artery. Both vertebral arteries are patent with antegrade flow. Impression dictated by: Drea Greene M.D.03/13/2024 1:17 PM Dictation Location: [place] [address] Tech: So Trejo Transcribed By: ORQUIDEA 03/13/241316 Dictated By: Drea Greene MD 03/13/241314 Signed By: 03/13/241316 Normal [facility] T3, TOTAL (TRIIODOTHYRONINE) on 03-23-2022 T3, TOTAL 113 ng/dL Normal 71-180 [facility] Comment on above: Performed By: #### C BC #### [facility] [address] [place] [address] [address] Tomas Rodriguez CBC AUTO DIFFon 03-22-2022 BASO # 0.0 103/ul Normal 0.0-0.1 [facility] Comment on above: Performed By: #### C BC ####[facility] [address] [place] [address]Dr. Tomas Rodriguez Basophils/100 WBC (Bld) 0.4 % Normal 0.2-2.0 [facility] Comment on above: Performed By: #### C BC ####[facility] [address] [place] [address]Dr. Tomas Rodriguez EO # 0.3 103/ul Normal 0.0-0.7 [facility] Comment on above: Performed By: #### C BC ####[facility] [address] [place] [address]Dr. Tomas Rodriguez Eosinophils/100 WBC (Bld) 4.3 % Normal 0.9-7.0 [facility] Comment on above: Performed By: #### C BC ####[facility] [address] [place] [address]Dr. Tomas Rodriguez Erythrocyte distribution width (RBC) [Ratio] 13.8 % Normal 11.0-15.0 [facility] Comment on above: Performed By: #### C BC ####[facility] [address] [place] [address]Dr. Tomas Rodriguez Hematocrit (Bld) [Volume fraction] 35.4 % Critically low 36.0-48.0 [facility] Comment on above: Performed By: #### C BC ####[facility] [address] [place] [address]Dr. Tomas Rodriguez Hemoglobin (Bld) [Mass/Vol] 11.7 g/dL Critically low 12.0-16.0 [facility] Comment on above: Performed By: #### C BC ####[facility] [address] [place], [place] [address]Dr. Tomas Rodriguez IG # 0.02 10e3/ul Normal 0.00-0.03 [facility] Comment on above: Performed By: #### C BC ####[facility] [address] [place], [place] [address]Dr. Tomas Rodriguez IG % 0.3 % Normal 0.0-0.5 [facility] Comment on above: Performed By: #### C BC ####[facility] [address] [place], [place] [address]Dr. Tomas Rodriguez LYMPH # 2.3 103/ul Normal 1.2-3.8 [facility] Comment on above: Performed By: #### C BC ####[facility] [address] [place], [place] [address]Dr. Jacijamee Rodriguez Lymphocytes/100 WBC (Bld) 32.2 % Normal 20.5-60.0 [facility] Comment on above: Performed By: #### C BC ####[facility] [address] [place], [place] [address]Dr. Tomas Rodrgiuez MANUAL DIFF REQ NO Normal [facility] Comment on above: Performed By: #### C BC ####[facility] [address] [place], [place] [address]Dr. Tomas Rodriguez MCH (RBC) [Entitic mass] 28.3 pg Normal 26.7-34.0 [facility] Comment on above: Performed By: #### C BC ####[facility] [address] [place], [place] [address]Dr. Tomas Rodriguez MCHC (RBC) [Mass/Vol] 33.1 g/dL Normal 29.9-35.2 [facility] Comment on above: Performed By: #### C BC ####[facility] [address] [place] [address]DrJosiane Rodriguez MCV (RBC) [Entitic vol] 85.5 fL Normal 81.0-99.0 [facility] Comment on above: Performed By: #### C BC ####[facility] [address] [place], [place] [address]DrJosiane Rodriguez MONO # 0.7 103/ul Normal 0.3-0.8 [facility] Comment on above: Performed By: #### C BC ####[facility] [address] [place], [place] [address]DrJosiane Rodriguez Monocytes/100 WBC (Bld) 9.4 % Normal 1.7-12.0 [facility] Comment on above: Performed By: #### C BC ####[facility] [address] [place], [place] [address]DrJosiane Rodriguez NEUT # 3.9 103/ul Normal 1.4-6.5 [facility] Comment on above: Performed By: #### C BC ####[facility] [address] [place], [place] [address]DrJosiane Rodriguez Neutrophils/100 WBC (Bld) 53.4 % Normal 43.0-75.0 [facility] Comment on above: Performed By: #### C BC ####[facility] [address] [place], [place] [address]DrJosiane Rodriguez Platelet mean volume (Bld) [Entitic vol] 9.4 fL Critically low 9.5-13.5 [facility] Comment on above: Performed By: #### C BC ####[facility] [address] [place], [place] [address]DrJosiane Rodriguez PLT 302 103/ul Normal 150-450 [facility] Comment on above: Performed By: #### C BC ####[facility] [address] [place], [place] [address]DrJosiane Rodriguez RBC 4.14 106/ul Critically low 4.20-5.40 [facility] Comment on above: Performed By: #### C BC ####[facility] [address] [place], [place] [address]Dr. Tomas Rodriguez WBC 7.2 103/ul Normal 4.0-11.0 [facility] Comment on above: Performed By: #### C BC ####[facility] [address] [place], [place] [address]WiDr. Tomas Rodriguez FERRITINon 03-22-2022 Ferritin [Mass/Vol] 70.0 ng/mL Normal 8.0-252.0 [facility] Comment on above: Performed By: #### H STROPN, CMP, TSH, LIPA #### [facility] [address] [address] [address] Tomas Rodriguez FREE T4on 03-22-2022 Free T4 [Mass/Vol] 0.84 ng/dL Normal 0.76-1.46 [facility] Comment on above: Performed By: #### H STROPN, CMP, TSH, LIPA #### [facility] [address] [place], [place] [address] Dr. Tomas Rodriguez TSHon 03-22-2022 TSH 2.412 uIU/mL Normal 0.358-3.740 [facility] Comment on above: Performed By: #### C BC #### [facility] [address] [place], [place] [address] Dr. Tomas Rodriguez Basophils Auto (Bld) [#/Vol] Ordered By: Fransico Brady on 03-17-2022 Basophils (Bld) [#/Vol] 0.1 10*3/uL 0.0-0.2 [facility] Basophils/100 WBC Auto (Bld) Ordered By: Fransico Brady on 03-17-2022 Basophils/100 WBC (Bld) 0.7 % . [facility] Eosinophils Auto (Bld) [#/Vo l]Ordered By: Fransico Brady on 03-17-2022 Eosinophils (Bld) [#/Vol] 0.5 10*3/uL 0.0-0.45 [facility] Eosinophils/100 WBC Auto (Bl d)Ordered By: Fransico Brady on 03-17-2022 Eosinophils/100 WBC (Bld) 6.5 % . [facility] Erythrocyte distribution wid th Auto (RBC) [Ratio]Ordered By: Fransico Brady on 03-17-2022 Erythrocyte distribution width (RBC) [Ratio] 14.7 % 11.9-15.3 [facility] Ferritin [Mass/volume] in Se rum or PlasmaOrdered By: Fransico Brady on 03-17-2022 Ferritin [Mass/Vol] 43.1 ng/mL 11-306.8 [facility] Folate [Mass/volume] in Seru m or PlasmaOrdered By: Fransico Brady on 03-17-2022 Folate [Mass/Vol] ng/mL >5.9 [facility] Comment on above: Folate reference ran ge: >5.9 ng/mlThe WHO technical consultation on folate and vitamin [id number] has determined that folate concentrations lessthan 4 ng/ml are considered deficient. Hematocrit Auto (Bld) [Volum e fraction]Ordered By: Fransico Brady on 03-17-2022 Hematocrit (Bld) [Volume fraction] 35.3 % 34.0-46.4 [facility] Hemoglobin [Mass/volume] in BloodOrdered By: Fransico Brady on 03-17-2022 Hemoglobin (Bld) [Mass/Vol] 11.6 g/dL 11.8-15.4 [facility] - Chemistry and C hemistry - challengeOrdered By: Fransico Brady on 03-17-2022 Cobalamin (Vitamin B12) [Mass/Vol] 3940 pg/mL 180-914 [facility] Leukocytes [#/volume] correc wing for nucleated erythrocytes in Blood by Automated counOrdered By: Fransico Brady on 03-17-2022 WBC corrected for nucl RBC Auto (Bld) [#/Vol] 7.4 10*3/uL 3.8-11.6 [facility] Lymphocytes Auto (Bld) [#/Vo l]Ordered By: Fransico Brady on 03-17-2022 Lymphocytes (Bld) [#/Vol] 2.9 10*3/uL 1.00-4.8 [facility] Lymphocytes/100 WBC Auto (Bl d)Ordered By: Fransico Brady on 03-17-2022 Lymphocytes/100 WBC (Bld) 38.6 % . [facility] MCH Auto (RBC) [Entitic mass ]Ordered By: Fransico Brady on 03-17-2022 MCH (RBC) [Entitic mass] 28.0 pg 24.7-34.3 [facility] MCHC Auto (RBC) [Mass/Vol]Or dered By: Fransico Brady on 03-17-2022 MCHC (RBC) [Mass/Vol] 32.8 g/dL 32.0-35.0 [facility] MCV Auto (RBC) [Entitic vol] Ordered By: Fransico Brady on 03-17-2022 MCV (RBC) [Entitic vol] 85.3 fL 80-100 [facility] Monocytes Auto (Bld) [#/Vol] Ordered By: Fransico Brady on 03-17-2022 Monocytes (Bld) [#/Vol] 0.7 10*3/uL 0.0-0.8 [facility] Monocytes/100 WBC Auto (Bld) Ordered By: Fransico Brady on 03-17-2022 Monocytes/100 WBC (Bld) 8.8 % . [facility] Neutrophils Auto (Bld) [#/Vo l]Ordered By: Fransico Brady on 03-17-2022 Neutrophils (Bld) [#/Vol] 3.4 10*3/uL 1.8-7.7 [facility] Neutrophils/100 WBC Auto (Bl d)Ordered By: Fransico Brady on 03-17-2022 Neutrophils/100 WBC (Bld) 45.4 % . [facility] Nucleated erythrocytes [Pres ence] in Blood by Automated countOrdered By: Fransico Brady on 03-17-2022 Nucleated RBC Auto Ql (Bld) 0.1 /100{WBC} 0-0.5 [facility] Platelet mean volume Auto (B ld) [Entitic vol]Ordered By: Fransico Brady on 03-17-2022 Platelet mean volume (Bld) [Entitic vol] 7.6 fL 6.3-10.7 [facility] Platelets Auto (Bld) [#/Vol] Ordered By: Fransico Brady on 03-17-2022 Platelets (Bld) [#/Vol] 300 10*3/uL 150-450 [facility] RBC Auto (Bld) [#/Vol]Ordere d By: Fransico Brady on 03-17-2022 RBC (Bld) [#/Vol] 4.14 10*6/uL 3.60-5.00 [facility] WBC Auto (Bld) [#/Vol]Ordere d By: Fransico Brady on 03-17-2022 WBC (Bld) [#/Vol] 7.4 10*3/uL 3.8-11.6 [facility] COVID-19 SOFIAOrdered By: Alesha Brady on 03-15-2022 SARS-CoV+SARS-CoV-2 (COVID-19) Ag IA.rapid Ql (Resp) Negative Negative [facility] Comment on above: This is a duplicate Krystle SARS Antigen (JOSEPHINE) result to be used for statistical tracking purpose only. No Panel InformationOrdered By: Fransico Brady on 03-15-2022 SARS Antigen (LFIA) [facility] NM STRESS/REST MULTIon 02-18 NM STRESS/REST MULTI Patient: RUBY VERDUGO Exam Date: 02/18/2022 : 1950 Gender:F Ordering : DR RUBIO SAMUEL D.O. Admission #: [id number] Family : Order #: [id number] CLICK HERE TO VIEW EXAM RADIOLOGY REPORT PROCEDURE: RADIONUCLIDE IMAGING STRESS/REST MULTI COMPARISON: NM STRESS/REST MULTI, 02/17/2017. INDICATIONS: Chest pain TECHNIQUE: Exam Description: Stress/Rest one day protocol gated SPECT Rest Imagin.0 mCi Tc-99m Cardiolite IV on 02/18/2022 Stress Imaging 30.3 mCi Tc-99m Cardiolite IV on 02/18/2022 Exercise Protocol: 0.4 mg Lexiscan given IV Heart Rate (bpm): Rest: 67 Max: 97 PMHR: 64 Blood Pressure: Rest: 118/66 Max: 128/60 Symptoms: Rest and peak stress ECG findings were normal and the exercise portion of the study was normal per attending physician Dr. Devin Samuel . For more details please see separate cardiac stress test report. FINDINGS: QUALITY OF STUDY: Excellent. PERFUSION DEFECT: None. LOCATION: N/A SIZE: N/A. SEVERITY: N/A. TYPE: N/A. WALL MOTION: Normal. LV SIZE: Normal. 57 mL. TID / TCD: None; 0.8 LVEF: Normal. Calculated EF 86%. SUMMARY: Myocardial perfusion imaging study is NORMAL. CONCLUSION: 1. Normal nuclear medicine myocardial perfusion scan. 2. Normal exercise portion of stress test. Dictated by: Alexander Gentile M.D. on 02/18/2022 at 15:27 Approved by: Alexander Gentile M.D. on 02/18/2022 at 15:29 Normal [facility] CBC AUTO DIFFon 01-28-2022 BASO # 0.0 103/ul Normal 0.0-0.1 [facility] Comment on above: Performed By: #### H STROPN, CMP, TSH, LIPA #### [facility] [address] [place] [address] Dr. Tomas Rodriguez Basophils/100 WBC (Bld) 0.4 % Normal 0.2-2.0 [facility] Comment on above: Performed By: #### H STROPN, CMP, TSH, LIPA #### [facility] [address] [address] [address] Tomas Rodriguez EO # 0.4 103/ul Normal 0.0-0.7 [facility] Comment on above: Performed By: #### H STROPN, CMP, TSH, LIPA #### [facility] [address] [address] [address] Tomas Rodriguez Eosinophils/100 WBC (Bld) 4.4 % Normal 0.9-7.0 [facility] Comment on above: Performed By: #### H STROPN, CMP, TSH, LIPA #### [facility] [address] [place] [address] Dr. Tomas Rodriguez Erythrocyte distribution width (RBC) [Ratio] 13.6 % Normal 11.0-15.0 [facility] Comment on above: Performed By: #### H STROPN, CMP, TSH, LIPA #### [facility] [address] [place] [address] Dr. Tomas Rodriguez Hematocrit (Bld) [Volume fraction] 31.5 % Critically low 36.0-48.0 [facility] Comment on above: Performed By: #### H STROPN, CMP, TSH, LIPA #### [facility] [address] [place] [address] Dr. Tomas Rodriguez Hemoglobin (Bld) [Mass/Vol] 10.5 g/dL Critically low 12.0-16.0 [facility] Comment on above: Performed By: #### H STROPN, CMP, TSH, LIPA #### [facility] [address] [place] [address] Dr. Tomas Rodriguez IG # 0.02 10e3/ul Normal 0.00-0.03 [facility] Comment on above: Performed By: #### H STROPN, CMP, TSH, LIPA #### [facility] [address] [place] [address] Dr. Tomas Rodriguez IG % 0.2 % Normal 0.0-0.5 [facility] Comment on above: Performed By: #### H STROPN, CMP, TSH, LIPA #### [facility] [address] [place] [address] Dr. Tomas Rodriguez LYMPH # 3.0 103/ul Normal 1.2-3.8 [facility] Comment on above: Performed By: #### H STROPN, CMP, TSH, LIPA #### [facility] [address] [place] [address] Dr. Tomas Rodriguez Lymphocytes/100 WBC (Bld) 33.3 % Normal 20.5-60.0 [facility] Comment on above: Performed By: #### H STROPN, CMP, TSH, LIPA #### [facility] [address] [place] [address] Dr. Tomas Rodriguez MANUAL DIFF REQ NO Normal [facility] Comment on above: Performed By: #### H STROPN, CMP, TSH, LIPA #### [facility] [address] [place] [address] Dr. Tomas Rodriguez MCH (RBC) [Entitic mass] 28.2 pg Normal 26.7-34.0 [facility] Comment on above: Performed By: #### H STROPN, CMP, TSH, LIPA #### [facility] [address] [place] [address] Dr. Tomas Rodriguez MCHC (RBC) [Mass/Vol] 33.3 g/dL Normal 29.9-35.2 [facility] Comment on above: Performed By: #### H STROPN, CMP, TSH, LIPA #### [facility] [facility] [address] [place] [address] Dr. Tomas Rodriguez MCV (RBC) [Entitic vol] 84.5 fL Normal 81.0-99.0 [facility] Comment on above: Performed By: #### H STROPN, CMP, TSH, LIPA #### [facility] [address] [place] [address] Dr. Tomas Rodriguez MONO # 0.7 103/ul Normal 0.3-0.8 [facility] Comment on above: Performed By: #### H STROPN, CMP, TSH, LIPA #### [facility] [address] [place] [address] Dr. Tomas Rodriguez Monocytes/100 WBC (Bld) 7.4 % Normal 1.7-12.0 [facility] Comment on above: Performed By: #### H STROPN, CMP, TSH, LIPA #### [facility] [address] [place] [address] Dr. Tomas Rodriguez NEUT # 4.8 103/ul Normal 1.4-6.5 [facility] Comment on above: Performed By: #### H STROPN, CMP, TSH, LIPA #### [facility] [address] [place] [address] Dr. Tomas Rodriguez Neutrophils/100 WBC (Bld) 54.3 % Normal 43.0-75.0 [facility] Comment on above: Performed By: #### H STROPN, CMP, TSH, LIPA #### [facility] [address] [place] [address] Dr. Tomas Rodriguez Platelet mean volume (Bld) [Entitic vol] 9.2 fL Critically low 9.5-13.5 [facility] Comment on above: Performed By: #### H STROPN, CMP, TSH, LIPA #### [facility] [address] [address] [address] Tomas Rodriguez PLT 251 103/ul Normal 150-450 [facility] Comment on above: Performed By: #### H STROPN, CMP, TSH, LIPA #### [facility] [address] [address] [address] Tomas Rodriguez RBC 3.73 106/ul Critically low 4.20-5.40 [facility] Comment on above: Performed By: #### H STROPN, CMP, TSH, LIPA #### [facility] [address] [address] [address] Tomas Rodriguez WBC 8.9 103/ul Normal 4.0-11.0 [facility] Comment on above: Performed By: #### H STROPN, CMP, TSH, LIPA #### [facility] [address] [address] [address] Tomas Rodriguez PROF 14(COMP METB)on 022 Albumin [Mass/Vol] 3.2 g/dL Critically low 3.4-5.0 Th [facility] Comment on above: Performed By: #### C MP ####[facility] [address] [address]DrJosiane Rodriguez Albumin/Globulin [Mass ratio] 0.9 {ratio} Normal [facility] Comment on above: Performed By: #### C MP ####[facility] [address] [address]DrJosiane Rodriguez ALP [Catalytic activity/Vol] 91 U/L Normal 46-116 [facility] Comment on above: Performed By: #### C MP ####[facility] [address] [address]DrJosiane Rodriguez ALT [Catalytic activity/Vol] 28 U/L Normal 14-59 [facility] Comment on above: Performed By: #### C MP ####[facility] [address] [id number]. Tomas Rodriguez Anion gap [Moles/Vol] 10.3 mmol/L Normal [facility] Comment on above: Performed By: #### C MP ####[facility] [address] [phone]. Tomas Rodriguez AST [Catalytic activity/Vol] 16 U/L Normal 15-37 [facility] Comment on above: Performed By: #### C MP ####[facility] [address] [phone]. Tomas Rodriguez Bilirubin [Mass/Vol] 0.2 mg/dL Normal 0.2-1.0 [facility] Comment on above: Performed By: #### C MP ####[facility] [address] [address]Dr. oTmas Rodriguez Calcium [Mass/Vol] 8.8 mg/dL Normal 8.5-10.1 [facility] Comment on above: Performed By: #### C MP ####[facility] [address] [address]Dr. Tomas Rodriguez Chloride [Moles/Vol] 108 mmol/L Critically high 98-107 [facility] Comment on above: Performed By: #### C MP ####[facility] [address] [phone]. Tomas Rodriguez CO2 [Moles/Vol] 23.0 mmol/L Normal 21.0-32.0 [facility] Comment on above: Performed By: #### C MP ####[facility] [address] [phone]. Tomas Rodriguez Creatinine [Mass/Vol] 0.73 mg/dL Normal 0.55-1.02 [facility] Comment on above: Performed By: #### C MP ####[facility] [address] [phone]. Tomas Michael EGFR-AF HONDURAN >60 Normal >=60 [facility] Comment on above: Performed By: #### C MP ####[facility] [address] [address]Dr. Tomas Rodriguez EGFR-NON AF HONDURAN >60 Normal >=60 [facility] Comment on above: Performed By: #### C MP ####[facility] [address] [address]Dr. Tomas Rodriguez Globulin (S) [Mass/Vol] 3.7 g/dL Normal [facility] Comment on above: Performed By: #### C MP ####[facility] [address] [place], [place] [address]Dr. Tomas Rodriguez Glucose [Mass/Vol] 99 mg/dL Normal 74-106 [facility] Comment on above: Performed By: #### C MP ####[facility] [address] [place], [place] [address]Dr. Tomas Rodriguez Potassium [Moles/Vol] 3.2 mmol/L Critically low 3.5-5.1 [facility] Comment on above: Performed By: #### C MP ####[facility] [address] [place], [place] [address]Dr. Tomas Rodriguez Protein [Mass/Vol] 6.9 g/dL Normal 6.4-8.2 [facility] Comment on above: Performed By: #### C MP ####[facility] [address] [place], [place] [address]Dr. Tomas Rodriguez Sodium [Moles/Vol] 138 mmol/L Normal 136-145 [facility] Comment on above: Performed By: #### C MP ####[facility] [address] [place], [place] [address]Dr. Tomas Rodriguez Urea nitrogen [Mass/Vol] 10.0 mg/dL Normal 7.0-18.0 [facility] Comment on above: Performed By: #### C MP ####[facility] [address] [place], [place] [address]Dr. Tomas Rodriguez Urea nitrogen/Creatinine [Mass ratio] 13.7 mg/mg Normal [facility] Comment on above: Performed By: #### C MP ####[facility] [address] [place], [place] [address]Dr. Tomas Rodriguez CBC AUTO DIFFon 01-27-2022 BASO # 0.0 103/ul Normal 0.0-0.1 [facility] Comment on above: Performed By: #### H STROPN, CMP, TSH, LIPA #### [facility] [address] [address] [address] Tomas Rodriguez Basophils/100 WBC (Bld) 0.4 % Normal 0.2-2.0 [facility] Comment on above: Performed By: #### H STROPN, CMP, TSH, LIPA #### [facility] [address] [address] [address] Tomas Rodriguez EO # 0.4 103/ul Normal 0.0-0.7 [facility] Comment on above: Performed By: #### H STROPN, CMP, TSH, LIPA #### [facility] [address] [address] [address] Tomas Rodriguez Eosinophils/100 WBC (Bld) 4.1 % Normal 0.9-7.0 [facility] Comment on above: Performed By: #### H STROPN, CMP, TSH, LIPA #### [facility] [address] [address] [address] Tomas Rodriguez Erythrocyte distribution width (RBC) [Ratio] 13.9 % Normal 11.0-15.0 [facility] Comment on above: Performed By: #### H STROPN, CMP, TSH, LIPA #### [facility] [address] [address] [address] Tomas Rodriguez Hematocrit (Bld) [Volume fraction] 34.4 % Critically low 36.0-48.0 [facility] Comment on above: Performed By: #### H STROPN, CMP, TSH, LIPA #### [facility] [address] [place] [address] Dr. Tomas Rodriguez Hemoglobin (Bld) [Mass/Vol] 10.9 g/dL Critically low 12.0-16.0 [facility] Comment on above: Performed By: #### H STROPN, CMP, TSH, LIPA #### [facility] [address] [address] [address] Tomas Rodriguez IG # 0.03 10e3/ul Normal 0.00-0.03 [facility] Comment on above: Performed By: #### H STROPN, CMP, TSH, LIPA #### [facility] [address] [address] [address] Tomas Rodriguez IG % 0.3 % Normal 0.0-0.5 [facility] Comment on above: Performed By: #### H STROPN, CMP, TSH, LIPA #### [facility] [address] [address] [address] Tomas Rodriguez LYMPH # 3.1 103/ul Normal 1.2-3.8 [facility] Comment on above: Performed By: #### H STROPN, CMP, TSH, LIPA #### [facility] [address] [place] [address] Dr. Tomas Rodriguez Lymphocytes/100 WBC (Bld) 31.9 % Normal 20.5-60.0 [facility] Comment on above: Performed By: #### H STROPN, CMP, TSH, LIPA #### [facility] [address] [address] [address] Tomas Rodriguez MANUAL DIFF REQ NO Normal [facility] Comment on above: Performed By: #### H STROPN, CMP, TSH, LIPA #### [facility] [address] [place] [address] Dr. Tomas Rodriguez MCH (RBC) [Entitic mass] 27.7 pg Normal 26.7-34.0 [facility] Comment on above: Performed By: #### H STROPN, CMP, TSH, LIPA #### [facility] [address] [address] [address] Tomas Rodriguez MCHC (RBC) [Mass/Vol] 31.7 g/dL Normal 29.9-35.2 [facility] Comment on above: Performed By: #### H STROPN, CMP, TSH, LIPA #### [facility] [address] [place] [address] Dr. Tomas Rodriguez MCV (RBC) [Entitic vol] 87.3 fL Normal 81.0-99.0 [facility] Comment on above: Performed By: #### H STROPN, CMP, TSH, LIPA #### [facility] [address] [address] [address] Tomas Rodriguez MONO # 0.7 103/ul Normal 0.3-0.8 [facility] Comment on above: Performed By: #### H STROPN, CMP, TSH, LIPA #### [facility] [address] [address] [address] Tomas Rodriguez Monocytes/100 WBC (Bld) 7.6 % Normal 1.7-12.0 [facility] Comment on above: Performed By: #### H STROPN, CMP, TSH, LIPA #### [facility] [address] [place] [address] Dr. Tomas Rodriguez NEUT # 5.3 103/ul Normal 1.4-6.5 [facility] Comment on above: Performed By: #### H STROPN, CMP, TSH, LIPA #### [facility] [address] [place] [address] Dr. Tomas Rodriguez Neutrophils/100 WBC (Bld) 55.7 % Normal 43.0-75.0 [facility] Comment on above: Performed By: #### H STROPN, CMP, TSH, LIPA #### [facility] [address] [place] [address] Dr. Tomas Rodriguez Platelet mean volume (Bld) [Entitic vol] 9.6 fL Normal 9.5-13.5 [facility] Comment on above: Performed By: #### H STROPN, CMP, TSH, LIPA #### [facility] [address] [place] [address] Dr. Tomas Rodriguez PLT 273 103/ul Normal 150-450 [facility] Comment on above: Performed By: #### H STROPN, CMP, TSH, LIPA #### [facility] [address] [place] [address] Dr. Tomas Rodriguez RBC 3.94 106/ul Critically low 4.20-5.40 [facility] Comment on above: Performed By: #### H STROPN, CMP, TSH, LIPA #### [facility] [address] [address] [address] Tomas Rodriguez WBC 9.6 103/ul Normal 4.0-11.0 [facility] Comment on above: Performed By: #### H STROPN, CMP, TSH, LIPA #### [facility] [id number] Tomas Rodriguez CULTURE URINEon 01-27-2022 CULTURE URINE Culture Observations : NO GROWTH. Normal [facility] Comment on above: Performed By: #### U RCX ####[facility] [address] [address]DrJosiane Rodriguez LIPID PROFILEon 01-27-2022 CHOL-HDL RATIO NORM SEE BELOW Normal [facility] Comment on above: Result Comment: 3.3 - 4.4 LOW RISK 4.4 - 7.1 AVERAGE RISK 7.1 - 11.0 MODERATE RISK >11.0 HIGH RISK Performed By: #### L IPID ####[facility] [address] [phone]. Tomas Rodriguez Cholesterol [Mass/Vol] 153 mg/dL Normal <=200 Th [facility] Comment on above: Performed By: #### L IPID ####[facility] [address] [phone]. Tomas Rodriguez Cholesterol in HDL [Mass/Vol] 51 mg/dL Normal 40-60 [facility] Comment on above: Performed By: #### L IPID ####[facility] [address] [phone]. Tomas Rodriguez Cholesterol in LDL [Mass/Vol] 61.0 mg/dL Normal [facility] Comment on above: Performed By: #### L IPID ####[facility] [address] [phone]. Tomas Rodriguez Cholesterol.total/Chol esterol in HDL [Mass ratio] 3.0 {ratio} Normal [facility] Comment on above: Performed By: #### L IPID ####[facility] [address] [phone]. Tomas Rodriguez HDL NORMAL > or = 60 mg/dl - LO W CARDIOVASCULAR RISK <40 mg/dl - HIGH CARDIOVASCULAR RISK Normal [facility] Comment on above: Performed By: #### L IPID ####[facility] [address] [phone]. Tomas Rodriguez LDL CALC NORMAL SEE BELOW Normal [facility] Comment on above: Result Comment: <100 mg/dl OPTIMAL 100 - 129 mg/dl NEAR OR ABOVE OPTIMAL 130 - 159 mg/dl BORDERLINE HIGH 160 - 189 mg/dl HIGH >190 mg/dl VERY HIGH Performed By: #### L IPID ####[facility] [address] [address]DrJosiane Rodriguez Triglyceride [Mass/Vol] 205 mg/dL Critically high <=150 [facility] Comment on above: Performed By: #### L IPID ####[facility] [address] [address]Dr. Tomas Rodriguez VLDL CALC 41.0 mg/dL Normal [facility] Comment on above: Performed By: #### L IPID ####[facility] [address] [address]DrJosiane Rodriguez POINT OF CARE GLUCOSEon 01-03 Glucose [Mass/Vol] 116 mg/dL Critically high 74-106 T [facility] Comment on above: Performed By: #### H STROPN, CMP, TSH, LIPA #### [facility] [address] [address] [address] Tomas Rodriguez PROF 14(COMP METB)on 022 Albumin [Mass/Vol] 3.4 g/dL Normal 3.4-5.0 [facility] Comment on above: Performed By: #### C MP ####[facility] [address] [address]Dr. Tomas Rodriguez Albumin/Globulin [Mass ratio] 0.9 {ratio} Normal [facility] Comment on above: Performed By: #### C MP ####[facility] [address] [address]Dr. Tomas Rodriguez ALP [Catalytic activity/Vol] 85 U/L Normal 46-116 [facility] Comment on above: Performed By: #### C MP ####[facility] [address] [address]Dr. Tomas Rodriguez ALT [Catalytic activity/Vol] 32 U/L Normal 14-59 [facility] Comment on above: Performed By: #### C MP ####[facility] [address] [place], [place] [address]Dr. Tomas Michael Anion gap [Moles/Vol] 15.3 mmol/L Normal Th e [facility] Comment on above: Performed By: #### C MP ####[facility] [address] [place], [place] [address]Dr. Tomas Michael AST [Catalytic activity/Vol] 18 U/L Normal 15-37 [facility] Comment on above: Performed By: #### C MP ####[facility] [address] [place], [place] [address]Dr. Tomas Michael Bilirubin [Mass/Vol] 0.2 mg/dL Normal 0.2-1.0 [facility] Comment on above: Performed By: #### C MP ####[facility] [address] [place], [place] [address]Dr. Tomas Michael Calcium [Mass/Vol] 8.5 mg/dL Normal 8.5-10.1 [facility] Comment on above: Performed By: #### C MP ####[facility] [address] [place], [place] [address]Dr. Tomas Michael Chloride [Moles/Vol] 107 mmol/L Normal 98-107 [facility] Comment on above: Performed By: #### C MP ####[facility] D[address] [place], [place] [address]Dr. Tomas Rodriguez CO2 [Moles/Vol] 20.1 mmol/L Critically low 21.0-32.0 [facility] Comment on above: Performed By: #### C MP ####[facility] [address] [place], [place] [address]Dr. Yijamee Rodriguez Creatinine [Mass/Vol] 0.83 mg/dL Normal 0.55-1.02 [facility] Comment on above: Performed By: #### C MP ####[facility] [address] [phone]. Tomas Rodriguez EGFR-AF HONDURAN >60 Normal >=60 [facility] Comment on above: Performed By: #### C MP ####[facility] [address] [phone]. Tomas Michael EGFR-NON AF HONDURAN >60 Normal >=60 [facility] Comment on above: Performed By: #### C MP ####[facility] [address] [phone]. Tomas Michael Globulin (S) [Mass/Vol] 3.8 g/dL Normal [facility] Comment on above: Performed By: #### C MP ####[facility] [address] [place], [place] [address]Dr. Tomas Michael Glucose [Mass/Vol] 100 mg/dL Normal 74-106 [facility] Comment on above: Performed By: #### C MP ####[facility] [address] [address]Dr. Tomas Michael Potassium [Moles/Vol] 3.4 mmol/L Critically low 3.5-5.1 [facility] Comment on above: Performed By: #### C MP ####[facility] [address] [address]Dr. Tomas Michael Protein [Mass/Vol] 7.2 g/dL Normal 6.4-8.2 [facility] Comment on above: Performed By: #### C MP ####[facility] [address] [address]Dr. Tomas Rodriguez Sodium [Moles/Vol] 139 mmol/L Normal 136-145 [facility] Comment on above: Performed By: #### C MP ####[facility] [address] [place], [place] [address]Dr. Tomas Michael Urea nitrogen [Mass/Vol] 16.0 mg/dL Normal 7.0-18.0 [facility] Comment on above: Performed By: #### C MP ####[facility] [address] [address]Dr. Tomas Rodriguez Urea nitrogen/Creatinine [Mass ratio] 19.3 mg/mg Normal [facility] Comment on above: Performed By: #### C MP ####[facility] [address] [id number]. Tomas Rodriguez CBC AUTO DIFFon 01-26-2022 BASO # 0.0 103/ul Normal 0.0-0.1 [facility] Comment on above: Performed By: #### C BC #### [facility] [address] [place] [address] Dr. Tomas Rodriguez Basophils/100 WBC (Bld) 0.1 % Critically low 0.2-2.0 [facility] Comment on above: Performed By: #### C BC #### [facility] [address] [place] [address] Dr. Tomas Rodriguez EO # 0.0 103/ul Normal 0.0-0.7 [facility] Comment on above: Performed By: #### C BC #### [facility] [address] [place] [address] Dr. Tomas Rodriguez Eosinophils/100 WBC (Bld) 0.2 % Critically low 0.9-7.0 [facility] Comment on above: Performed By: #### C BC #### [facility] [address] [place] [address] Dr. Tomas Rodriguez Erythrocyte distribution width (RBC) [Ratio] 14.2 % Normal 11.0-15.0 [facility] Comment on above: Performed By: #### C BC #### [facility] [address] [place] [address] Dr. Tomas Rodriguez Hematocrit (Bld) [Volume fraction] 35.4 % Critically low 36.0-48.0 [facility] Comment on above: Performed By: #### C BC #### [facility] [address] [place] [address] Dr. Tomas Rodriguez Hemoglobin (Bld) [Mass/Vol] 11.4 g/dL Critically low 12.0-16.0 [facility] Comment on above: Performed By: #### C BC #### [facility] [address] [place] [address] Dr. Tomas Rodriguez IG # 0.04 10e3/ul Critically high 0.00-0.03 [facility] Comment on above: Performed By: #### C BC #### [facility] [address] [place] [address] Dr. Tomas Rodriguez IG % 0.3 % Normal 0.0-0.5 [facility] Comment on above: Performed By: #### C BC #### [facility] [address] [place] [address] Dr. Tomas Rodriguez LYMPH # 1.8 103/ul Normal 1.2-3.8 [facility] Comment on above: Performed By: #### C BC #### [facility] [address] [place] [address] Dr. Tomas Rodriguez Lymphocytes/100 WBC (Bld) 13.6 % Critically low 20.5-60.0 [facility] Comment on above: Performed By: #### C BC #### [facility] [address] [place] [address] Dr. Tomas Rodriguez MANUAL DIFF REQ NO Normal [facility] Comment on above: Performed By: #### C BC #### [facility] [address] [place] [address] Dr. Tomas Rodriguez MCH (RBC) [Entitic mass] 28.0 pg Normal 26.7-34.0 [facility] Comment on above: Performed By: #### C BC #### [facility] [address] [place] [address] Dr. Tomas Rodriguez MCHC (RBC) [Mass/Vol] 32.2 g/dL Normal 29.9-35.2 [facility] Comment on above: Performed By: #### C BC #### [facility] [address] [place] [address] Dr. Tomas Rodriguez MCV (RBC) [Entitic vol] 87.0 fL Normal 81.0-99.0 [facility] Comment on above: Performed By: #### C BC #### [facility] [address] [address] [address] Tomas Rodriguez MONO # 1.2 103/ul Critically high 0.3-0.8 [facility] Comment on above: Performed By: #### C BC #### [facility] [address] [place] [address] Dr. Tomas Rodriguez Monocytes/100 WBC (Bld) 8.7 % Normal 1.7-12.0 [facility] Comment on above: Performed By: #### C BC #### [facility] [address] [place] [address] Dr. Tomas Rodriguez NEUT # 10.4 103/ul Critically high 1.4-6.5 [facility] Comment on above: Performed By: #### C BC #### [facility] [address] [place] [address] Dr. Tomas Rodriguez Neutrophils/100 WBC (Bld) 77.1 % Critically high 43.0-75.0 [facility] Comment on above: Performed By: #### C BC #### [facility] [address] [place] [address] Dr. Tomas Rodriguez Platelet mean volume (Bld) [Entitic vol] 9.6 fL Normal 9.5-13.5 [facility] Comment on above: Performed By: #### C BC #### [facility] [address] [place] [address] Dr. Tomas Rodriguez PLT 285 103/ul Normal 150-450 [facility] Comment on above: Performed By: #### C BC #### [facility] [address] [place], [place] [id number] Dr. Tomas Rodriguez RBC 4.07 106/ul Critically low 4.20-5.40 [facility] Comment on above: Performed By: #### C BC #### [facility] [address] [place] [address] Dr. Tomas Rodriguez WBC 13.5 103/ul Critically high 4.0-11.0 [facility] Comment on above: Performed By: #### C #### [facility] [address] [address] [address] Tomas Rodriguez ECHOCARDIO M/2D COMPLETEon 1 ECHOCARDIO M/2D COMPLETE Patient: RUBY VERDUGO Exam Date: 01/26/2022 : 1950 Gender:F Ordering : DR TANGELA MILLER . Admission #: [id number] Family : DR RUBIO SAMUEL D.O. Order #: [id number] CLICK HERE TO VIEW EXAM ECHOCARDIOGRAM REPORT PROCEDURE: CARDIO PULMONARY ECHOCARDIO M/2D COMP INDICATIONS: Syncope, smoker, hypertension COMPARISON: None. DESCRIPTION: COMPLETE ECHOCARDIOGRAM Real-time transthoracic echocardiography with 2D, M-mode, spectral and color flow Doppler performed. QUALITY: Technical quality was fair. 62 [id number]# BP 101/55 LEFT VENTRICLE: Normal chamber size. Normal left ventricular wall thickness. LV EF: Normal left ventricular ejection fraction, (>55%). DIASTOLIC: Normal diastolic function. ATRIAL SEPTUM: LEFT ATRIUM: Mild dilatation. RIGHT ATRIUM: Normal chamber size. RIGHT VENTRICLE: Normal chamber size. Normal right ventricular systolic function. TRICUSPID VALVE: Normal mobility and thickness. No stenosis with trivial regurgitation. MITRAL VALVE: Normal mobility and thickness. No evidence of mitral valve stenosis. Mild mitral annular calcification. No mitral regurgitation. AORTIC VALVE: Poorly visualized. No visible sclerosis. No evidence of aortic valve stenosis. No aortic regurgitation. AORTIC ROOT: Normal diameter and appearance. PULMONIC VALVE: Not well visualized. No stenosis. No regurgitation. PERICARDIUM: No evidence of pericardial effusion. IVC: Collapses with inspirations. IVC is normal in size. PLEURA: CONCLUSION: 1. Normal ventricular systolic function. LVEF is 55 to 60%. 2. No significant valvular dysfunction. 3. Unable to assess right-sided pressures due to lack of measurable tricuspid regurgitation. 4. No pericardial effusion. 5. Poor sound transmission. Poor visualization of the aortic valve. Adult Echocardiography Procedure Report Left Ventricle LVEDD (3.7 - 5.6 cm): 3.64 cm LVESD (2.2 - 4.0 cm): 2.84 cm LVIVS thickness (0.6 - 1.2 cm): 0.90 cm LVPW thickness (0.5 - 1.0 cm): 0.97 cm e': 0.10 m/s E - e': 8.26 LVOT Max Gradient: 4.09 mm[Hg] Peak Velocity (LVOT): 1.01 m/s LVOT Diameter 2.16 cm Left Ventricular Ejection Fraction: 55-60% Left Atrium LA Volume Index (2D A2C): 69.61 ml, 69.61 ml Left Atrium Systolic Dimension: 3.98 cm Mitral Valve MV E to A Ratio: 0.89 Mitral Valve A-Wave Peak Velocity: 0.97 m/s Mitral Valve E-Wave Peak Velocity: 0.86 m/s Right Ventricle Aorta AO Root Diam: 3.15 cm Aortic Valve AoV Area (Peak Thomas): 2.79 cm2, 2.79 cm2 Peak Velocity(Antegrade Flow): 1.33 m/s Peak Gradient(Antegrade Flow): 7.05 mm[Hg] Tricuspid Valve Peak Velocity: 0.58 m/s Pulmonic Valve Peak Velocity: 1.09 m/s Peak Gradient: 4.77 mm[Hg] Right Atrium Right Atrium Systolic Pressure: 45.62 ml, 45.62 ml Dictated by: Rohan Zamorano M.D. on 02/03/2022 at 10:33 Approved by: Rohan Zamorano M.D. on 02/03/2022 at 10:36 Normal [facility] FREE T3on 01-26-2022 FREE T3 1.63 pg/mlL Critically low 2.18-3.98 [facility] Comment on above: Performed By: #### C BC #### [facility] [address] [place] [address] Dr. Tomas Rodriguez FREE T4on 01-26-2022 Free T4 [Mass/Vol] 0.84 ng/dL Normal 0.76-1.46 [facility] Comment on above: Performed By: #### H STROPN, CMP, TSH, LIPA #### [facility] [address] [address] [address] Tomas Rodriguez IRON AND TIBCon 01-26-2022 % SATURATION 10.0 % Normal [facility] Comment on above: Performed By: #### H STROPN, CMP, TSH, LIPA #### [facility] [address] [address] [address] Tomas Rodriguez Iron [Mass/Vol] 35.0 ug/dL Critically low 50.0-170.0 [facility] Comment on above: Performed By: #### H STROPN, CMP, TSH, LIPA #### [facility] [address] [address] [address] Tomas Rodriguez TIBC DIRECT 350.0 ug/dL Normal 250.0-450.0 [facility] Comment on above: Performed By: #### H STROPN, CMP, TSH, LIPA #### [facility] [address] [address] [address] Tomas Rodriguez PROF 14(COMP METB)on 022 Albumin [Mass/Vol] 3.5 g/dL Normal 3.4-5.0 [facility] Comment on above: Performed By: #### C MP ####[facility] [address] [address]DrJosiane Rodriguez Albumin/Globulin [Mass ratio] 0.9 {ratio} Normal [facility] Comment on above: Performed By: #### C MP ####[facility] [address] [address]Dr. Tomas Rodriguez ALP [Catalytic activity/Vol] 99 U/L Normal 46-116 [facility] Comment on above: Performed By: #### C MP ####[facility] [address] [address]Dr. Tomas Rodriguez ALT [Catalytic activity/Vol] 32 U/L Normal 14-59 [facility] Comment on above: Performed By: #### C MP ####[facility] [address] [address]Dr. Tomas Rodriguez Anion gap [Moles/Vol] 13.3 mmol/L Normal [facility] Comment on above: Performed By: #### C MP ####[facility] [address] [address]Dr. Tomas Rodriguez AST [Catalytic activity/Vol] 21 U/L Normal 15-37 [facility] Comment on above: Performed By: #### C MP ####[facility] [address] [phone]. Tomas Rodriguez Bilirubin [Mass/Vol] 0.3 mg/dL Normal 0.2-1.0 [facility] Comment on above: Performed By: #### C MP ####[facility] [address] [phone]. Tomas Rodriguez Calcium [Mass/Vol] 8.5 mg/dL Normal 8.5-10.1 [facility] Comment on above: Performed By: #### C MP ####[facility] [address] [phone]. Tomas Rodriguez Chloride [Moles/Vol] 106 mmol/L Normal 98-107 [facility] Comment on above: Performed By: #### C MP ####[facility] [address] [phone]. Tomas Rodriguez CO2 [Moles/Vol] 22.2 mmol/L Normal 21.0-32.0 [facility] Comment on above: Performed By: #### C MP ####[facility] [address] [phone]. Tomas Rodriguez Creatinine [Mass/Vol] 1.54 mg/dL Critically high 0.55-1.02 [facility] Comment on above: Performed By: #### C MP ####[facility] [address] [phone]. Tomas Rodriguez EGFR-AF HONDURAN 40 mL/min/1.73m2 Critically low >=60 [facility] Comment on above: Performed By: #### C MP ####[facility] [address] [phone]. Tomas Rodriguez EGFR-NON AF HONDURAN 33 mL/min/1.73m2 Critically low >=60 [facility] Comment on above: Performed By: #### C MP ####[facility] [address] [phone]. Tomas Rodriguez Globulin (S) [Mass/Vol] 3.9 g/dL Normal [facility] Comment on above: Performed By: #### C MP ####[facility] [address] [phone]. Tomas Rodriguez Glucose [Mass/Vol] 97 mg/dL Normal 74-106 [facility] Comment on above: Performed By: #### C MP ####[facility] [address] [phone]. Tomas Rodriguez Potassium [Moles/Vol] 3.5 mmol/L Normal 3.5-5.1 [facility] Comment on above: Performed By: #### C MP ####[facility] [address] [address]Dr. Tomas Rodriguez Protein [Mass/Vol] 7.4 g/dL Normal 6.4-8.2 [facility] Comment on above: Performed By: #### C MP ####[facility] [address] [address]Dr. Tomas Rodriguez Sodium [Moles/Vol] 138 mmol/L Normal 136-145 [facility] Comment on above: Performed By: #### C MP ####[facility] [address] [address]Dr. Tomas Rodriguez Urea nitrogen [Mass/Vol] 23.0 mg/dL Critically high 7.0-18.0 [facility] Comment on above: Performed By: #### C MP ####[facility] [address] [address]Dr. Tomas Rodriguez Urea nitrogen/Creatinine [Mass ratio] 14.9 mg/mg Normal [facility] Comment on above: Performed By: #### C MP ####[facility] [address] [address]Dr. Tomas Rodriguez UA (CLEAN/CATCH) CLUTCH INSPECTOR/MICRO I F IND.on 01-26-2022 Bilirubin Ql (U) Negative Normal NEGATIVE [facility] Comment on above: Performed By: #### U MICRO, UACSIND #### [facility] [address] [address] [address] Tomas Rodriguez Clarity (U) CLEAR Normal CLEAR [facility] Comment on above: Performed By: #### U MICRO, UACSIND #### [facility] [address] [address] [address] Tomas Rodriguez Color (U) LT. YELLOW Normal YELLOW [facility] Comment on above: Performed By: #### U MICRO, UACSIND #### [facility] [address] [address] [address] Tomas Rodriguez Glucose Ql (U) 100 mg/dl Abnormal NEGATIVE [facility] Comment on above: Performed By: #### U MICRO, UACSIND #### [facility] [address] [address] [address] Tomas Rodriguez Hemoglobin Ql (U) TRACE-INTACT Abnormal NEGATIVE [facility] Comment on above: Performed By: #### U MICRO, UACSIND #### [facility] [address] [place] [address] Dr. Tomas Rodriguez Ketones Ql (U) Negative Normal NEGATIVE [facility] Comment on above: Performed By: #### U MICRO, UACSIND #### [facility] [address] [place] [address] Dr. Tomas Rodriguez LEUKOCYTES Negative Normal NEGATIVE [facility] Comment on above: Performed By: #### U MICRO, UACSIND #### [facility] [address] [address] [address] Tomas Rodriguez Nitrite Ql (U) Negative Normal NEGATIVE [facility] Comment on above: Performed By: #### U MICRO, UACSIND #### [facility] [address] [address] [address] Tomas Rodriguez pH (U) 6.0 [pH] Normal 5-9 [facility] Comment on above: Performed By: #### U MICRO, UACSIND #### [facility] [address] [address] [address] Tomas Rodriguez SPEC GRAVITY >=1.030 Abnormal 1.005-<=1.025 [facility] Comment on above: Performed By: #### U MICRO, UACSIND #### [facility] [address] [address] [address] Tomas Rodriguez UA PROTEIN 100 mg/dl Abnormal NEGATIVE/ TRACE [facility] Comment on above: Performed By: #### U MICRO, UACSIND #### [facility] [address] [address] [address] Tomas Rodriguez UR MICRO IND INDICATED Normal [facility] Comment on above: Performed By: #### U MICRO, UACSIND #### [facility] [address] [address] [address] Tomas Rodriguez Urobilinogen Qn (U) 0.2 {Dennis'U}/dL Normal 0.2 - 1. 0 [facility] Comment on above: Performed By: #### U MICRO, UACSIND #### [facility] [address] [address] [address] Tomas Rodriguez URINE MICROSCOPIC ONLYon BACTERIA MODERATE Abnormal NONE SEEN [facility] Comment on above: Performed By: #### U MICRO, UACSIND ####[facility] [address] [address]Dr. Tomas Rodriguez Bacteria identified Cx Nom (U) INDICATED Normal [facility] Comment on above: Performed By: #### U MICRO, UACSIND ####[facility] [address] [address]Dr. Tomas Rodriguez CAST SEEN Abnormal NONE SEEN [facility] Comment on above: Performed By: #### U MICRO, UACSIND ####[facility] [address] [address]Dr. Tomas Rodriguez Crystals LM Nom (Urine sed) NONE SEEN Normal NONE SEEN [facility] Comment on above: Performed By: #### U MICRO, UACSIND ####[facility] [address] [address]Dr. Tomas Rodriguez Epithelial cells LM Ql (Urine sed) RARE Normal NONE SEEN /RARE [facility] Comment on above: Performed By: #### U MICRO, UACSIND ####[facility] [address] [address]Dr. Tomas Rodriguez FINE GRANULAR CAST RARE Normal [facility] Comment on above: Performed By: #### U MICRO, UACSIND ####[facility] [address] [phone]. Tomas Rodriguez HYALINE CAST RARE Normal [facility] Comment on above: Performed By: #### U MICRO, UACSIND ####[facility] [address] [phone]. Jacijamee Rodriguez MUCOUS NONE SEEN Normal NONE SEEN [facility] Comment on above: Performed By: #### U MICRO, UACSIND ####[facility] [address] [phone]. Tomas Rodriguez RBC 2-5 Abnormal 0-2 [facility] Comment on above: Performed By: #### U MICRO, UACSIND ####[facility] [address] [address]Dr. Tomas Rodriguez WBC 0-2 Abnormal NONE SEEN [facility] Comment on above: Performed By: #### U MICRO, UACSIND ####[facility] [address] [address]Dr. Tomas Rodriguez US CAROTID ART BILon 10-25-2 022 US CAROTID ART MATT EXAMINATION: US CAROTID ART MATT HISTORY: Syncope COMPARISON: No relevant comparison available. TECHNIQUE: Duplex Doppler ultrasound analysis of carotid and vertebral arteries. . Bilateral carotid arterial duplex examination was performed using B-mode, color flow and spectral analysis. Carotid stenosis is reported according to validated velocity parameters, similar to NASCET criteria. FINDINGS: RIGHT CAROTID ARTERY Mild atherosclerotic plaque Subclavian: PSV: 257.3 cm/s cm/s EDV: 7.8 cm/s cm/s CCA: Prox: PSV: 94.7 cm/s cm/s EDV: 17.1 cm/s cm/s Mid: PSV: 84.9 cm/s cm/s EDV: 20.3 cm/s cm/s Distal: PSV: 101.1 cm/s cm/s EDV: 18.7 cm/s cm/s BULB: PSV: 80.1 cm/s cm/s EDV: 15.5 cm/s cm/s ICA: Prox: PSV: 177.2 cm/s cm/s EDV: 40.7 cm/s cm/s Mid: PSV: 93.8 cm/s cm/s EDV: 22.9 cm/s cm/s Distal: PSV: 87.9 cm/s cm/s EDV: 24.8 cm/s cm/s ECA: PSV: 145.1 cm/s cm/s EDV: 13.0 cm/s cm/s VERTEBRAL: PSV: 182.6 cm/s cm/s EDV: 38.6 cm/s cm/s ICA/CCA ratio: PSV: 1.8 EDV: 2.2 LEFT CAROTID ARTERY Moderate atherosclerotic plaque with the maximum area of reduction in the bulb of 82% Subclavian: PSV: 241.1 cm/s cm/s EDV: 0.0 cm/s CCA: Prox: PSV: 86.6 cm/s cm/s EDV: 18.7 cm/s Mid: PSV: 102.7 cm/s cm/s EDV: 22.0 cm/s Distal: PSV: 88.1 cm/s cm/s EDV: 17.1 cm/s BULB: PSV: 126.9 cm/s cm/s EDV: 23.6 cm/s ICA: Prox: PSV: 118.8 cm/s cm/s EDV: 20.3 cm/s Mid: PSV: 122.0 cm/s cm/s EDV: 31.6 cm/s Distal: PSV: 113.9 cm/s cm/s EDV: 34.9 cm/s ECA: PSV: 149.0 cm/s cm/s EDV: 17.0 cm/s VERTEBRAL: PSV: 62.2 cm/s cm/s EDV: 14.9 cm/s ICA/CCA ratio: PSV: 1.4 EDV: 1.4 IMPRESSION: Slightly elevated flow velocity proximal right internal carotid artery with no area of reduction visualized Moderate atherosclerosis with 82% flow stenosis in the left carotid bulb Spectral Doppler US Thresholds (Reference: Rusty EG, et al. Radiology 2000; 214:247-252) Stenosis (%) PSV (cm/sec) VICA/VCCA 0-49 <150 <2.5 50-69 150-225 2.5-4.0 >70 >225 >4.0 Electronically authenticated by: RIVERA ROUSSEAU Date: 2022-01-26 10:54 Normal [facility] VIT B12 AND FOLATEon 022 Cobalamin (Vitamin B12) [Mass/Vol] 1873.0 pg/mL Critically high 193.0-986.0 [facility] Comment on above: Performed By: #### H STROPN, CMP, TSH, LIPA #### [facility] [address] [address] [address] Tomas Rodriguez FOLATE 29.20 ng/mL Normal 8.60-58.90 [facility] Comment on above: Performed By: #### H STROPN, CMP, TSH, LIPA #### [facility] [address] [address] [address] Tomas Rodriguez CBC W MANUAL DIFFon 01-26-20 22 ATYPICAL LYMPH # 0.00 103/ul Normal [facility] Comment on above: Performed By: #### C MAT ####[facility] [address] [address]Dr. Tomas Rodriguez ATYPICAL LYMPH % 0 % Normal [facility] Comment on above: Performed By: #### John RIVERO ####[facility] [address] [address]Dr. Tomas Rodriguez BAND # 2.0 103/ul Critically high 0.0-0.3 [facility] Comment on above: Performed By: #### John RIVERO ####[facility] [address] [address]Dr. Tomas Rodriguez BAND % 10 % Critically high 0-5 [facility] Comment on above: Performed By: #### C MAT ####[facility] [address] [phone]. Tomas Rodriguez BASOM # 0.00 103/ul Normal 0.00-0.10 [facility] Comment on above: Performed By: #### C MAT ####[facility] [address] [address]Dr. Tomas Rodriguez BASOM % 0.0 % Critically low 0.2-2.0 [facility] Comment on above: Performed By: #### John RIVERO ####[facility] [address] [phone]. Tomas Rodriguez BLAST # 0.0 103/ul Normal [facility] Comment on above: Performed By: #### C MAT ####[facility] [address] [phone]. Tomas Rodriguez BLAST % 0 % Normal [facility] Comment on above: Performed By: #### C MAT ####[facility] [address] [phone]. Tomas Rodriguez CORRECTED WBC Normal 4.0-11.0 [facility] Comment on above: Performed By: #### C MAT ####[facility] [address] [address]Dr. Tomas Rodriguez EOS # 0.00 103/ul Normal 0.00-0.70 [facility] Comment on above: Performed By: #### C MAT ####[facility] [address] [place], [place] [address]Dr. Tomas Rodriguez EOS% 0.0 % Critically low 0.9-7.0 [facility] Comment on above: Performed By: #### C MAT ####[facility] [address] [place], [place] [address]Dr. Tomas Rodriguez HCT 42.7 % Normal 36.0-48.0 [facility] Comment on above: Performed By: #### C MAT ####[facility] [address] [place], [place] [address]Dr. Tomas Rodriguez HGB 13.7 g/dl Normal 12.0-16.0 [facility] Comment on above: Performed By: #### C MAT ####[facility] [address] [phone]. Tomas Rodriguez LYMPHM # 0.60 103/ul Critically low 1.20-3.80 [facility] Comment on above: Performed By: #### C MAT ####[facility] [address] [phone]. Tomas Rodriguez LYMPHM% 3.0 % Critically low 20.5-60.0 [facility] Comment on above: Performed By: #### C MAT ####[facility] [address] [phone]. Tomas Rodriguez MCH 28.0 pg Normal 26.7-34.0 [facility] Comment on above: Performed By: #### C MAT ####[facility] [address] [phone]. Tomas Rodriguez MCHC 32.1 g/dl Normal 29.9-35.2 [facility] Comment on above: Performed By: #### C MAT ####[facility] [address] [phone]. Tomas Rodriguez MCV 87.3 fL Normal 81.0-99.0 [facility] Comment on above: Performed By: #### C MAT ####[facility] [address]rf[address] [phone]. Tomas Rodriguez METAMYELOCYTE # 1.8 103/ul Normal [facility] Comment on above: Performed By: #### C MAT ####[facility] [address] [phone]. Tomas Rodriguez METAMYELOCYTE % 9 % Normal [facility] Comment on above: Performed By: #### C MAT ####[facility] [address] [phone]. Tomas Rodriguez MONOM# 1.59 103/ul Critically high 0.30-0.80 [facility] Comment on above: Performed By: #### C MAT ####[facility] [address]wr[address] [phone]. Tomas Rodriguez MONOM% 8.0 % Normal 1.7-12.0 [facility] Comment on above: Performed By: #### C MAT ####[facility] [address]cul[address] [phone]. Tomas Rodriguez MPV 9.4 fL Critically low 9.5-13.5 [facility] Comment on above: Performed By: #### C MAT ####[facility] [address] [place], [place] [address]Pw. Tomas Rodriguez MYELOCYTE # 0.0 103/ul Normal [facility] Comment on above: Performed By: #### C MAT ####[facility] [address] [phone]. Tomas Rodriguez MYELOCYTE % 0 % Normal [facility] Comment on above: Performed By: #### C MAT ####[facility] [address]mm[address] [phone]. Tomas Rodriguez NRBC 0 Normal [facility] Comment on above: Performed By: #### C MAT ####[facility] [address]au[address] [phone]. Tomas Rodriguez PLT 326 103/ul Normal 150-450 [facility] Comment on above: Performed By: #### C MAT ####[facility] [address]ft[address]elqi[address] [phone]. Tomas Rodriguez RBC 4.89 106/ul Normal 4.20-5.40 [facility] Comment on above: Performed By: #### C MAT ####[facility] Ef[address]iwgepv[address] [phone]. Tomas Rodriguez RDW 14.0 % Normal 11.0-15.0 [facility] Comment on above: Performed By: #### C MAT ####[facility] [address]eokk[address] [phone]. Tomas Rodriguez SEG # 13.93 103/ul Critically high 1.40-6.50 [facility] Comment on above: Performed By: #### C MAT ####[facility] [address] [phone]. Tomas Rodriguez SEG % 70.0 % Normal 43.0-75.0 [facility] Comment on above: Performed By: #### C MAT ####[facility] [address] [phone]. Tomas Rodriguez WBC 19.9 103/ul Critically high 4.0-11.0 [facility] Comment on above: Performed By: #### C MAT ####[facility] [address] [place], [place] [address]Fi. Tomas Rodriguez CT ABD/PELVIS WO CONon 01-25 CT ABD/PELVIS WO CON EXAMINATION: CT ABD/PELVIS WO CON HISTORY: Syncope COMPARISON: CT abdomen pelvis 07/10/2021 TECHNIQUE: Axial, Coronal, and Sagittal images were obtained without and/or with IV contrast as indicated by examination type. Dose reduction techniques were achieved by using automated exposure control and/or adjustment of mA and/or kV according to patient size and/or use of iterative reconstruction technique. FINDINGS: LUNG BASES: No visible pulmonary or pleural disease. LIVER: No enlargement, atrophy, suspicious density, or significant focal lesion. BILIARY: No dilatation or calcification. PANCREAS: No lesion, fluid collection, or abnormal duct dilatation. SPLEEN: No enlargement or focal lesion. ADRENALS: Adreniform hypertrophy of left adrenal gland. KIDNEYS: No mass, obstruction, or calcification. BOWEL/MESENTERY: Diverticulosis of sigmoid colon without acute inflammatory changes. No visible mass, obstruction, or bowel wall thickening. AORTA/VASCULAR: No aneurysm or dissection. Marked atherosclerotic disease of the distal aorta and common iliac arteries. RETROPERITONEUM: No mass or adenopathy. LYMPH NODES: No adenopathy. URINARY BLADDER: Completely collapsed. No visible focal wall thickening, lesion, or calculus. PELVIC ORGANS: No visible mass. Pelvic organs appropriate for patient age. ABDOMINAL WALL: No mass or hernia. BONES: Moderate degenerative changes of right hip joint. Multilevel moderate degenerative disc disease of the visible lower thoracic spine. OTHER: Negative. IMPRESSION: 1. Colonic diverticulosis. 2. Marked atherosclerotic disease of aorta and common iliac arteries. 3. Moderate degenerative joint disease of right hip. Electronically authenticated by: AELXANDER GENTILE Date: 2022-01-25 15:[address] [facility] [address] HEAD WO CONon 01-25-2022 CT HEAD WO CON EXAMINATION: CT HEAD WO CON HISTORY: Syncope COMPARISON: No relevant comparison available. TECHNIQUE: Axial CT images were obtained without IV contrast. Dose reduction techniques were achieved by using automated exposure control and/or adjustment of mA and/or kV according to patient size and/or use of iterative reconstruction technique. FINDINGS: BRAIN: No edema, hemorrhage, mass, acute infarction, or inappropriate atrophy. CSF SPACES: No hydrocephalus, subarachnoid hemorrhage, or mass. Appropriate for age. SKULL: No fracture, mass, or other significant visible lesion. SINUSES: No significant mucosal thickening or fluid on the limited views. ORBITS: No appreciable abnormality on the limited views. OTHER: Negative IMPRESSION: 1. Normal examination. Electronically authenticated by: ALEXANDER GENTILE Date: 2022-01-25 15:18 Normal [facility] CULTURE BLOODon 01-25-2022 Microscopic examination of blood, culture Culture Observations: NO GROWTH AT 5 DAYS. Normal [facility] Comment on above: Performed By: #### B [id number] ####[facility] [id number] [id number]. Tomas Rodriguez Microscopic examination of blood, culture Culture Observations: NO GROWTH AT 5 DAYS. Normal [facility] Comment on above: Performed By: #### B [id number] ####[facility] [id number] [place], [place] [address]Mz. Tomas Rodriguez CULTURE URINEon 01-25-2022 CULTURE URINE Culture Observations : NO GROWTH. Normal [facility] Comment on above: Performed By: #### U RCX ####[facility] [id number] [id number]. Tomas Michael Covid-19 PCR (CVDTB)on 01-03 SARS-CoV-2 (COVID-19) RNA MARK+probe Ql (Unsp spec) Not detected Normal NOT DETECTED [facility] Comment on above: Result Comment: When diagnostic testing is negative, the possibility of a false negative should be considered in the context of a patient's recent exposures and the presence of clinical signs and symptoms consistent with SARS-CoV-2. This test is not yet approved or cleared by the [place] FDA. When there are no FDA-approved or cleared tests available, and other criteria are met, FDA can make tests available under an emergency access mechanism called an Emergency Use Authorization (EUA). The EUA for this test is supported by the [employer] of Health and Human Service's declaration that circumstances exist to justify the emergency use of in vitro diagnostics for the detection and/or diagnosis of the virus that causes COVID-19. This EUA will remain in effect for the duration of the COVID-19 declaration justifying emergency of IVDs, unless it is terminated or revoked by the FDA (after which the test may no longer be used). Performed By: #### H STROPN, CMP, TSH, LIPA #### [facility] [address] [address] [address] Tomas DODSON URINE PROFILEon 2 Bilirubin Ql (U) SMALL Abnormal NEGATIVE [facility] Comment on above: Performed By: #### H STROPN, CMP, TSH, LIPA #### [facility] [address] [address] [address] Tomas Rodriguez Clarity (U) CLEAR Normal CLEAR [facility] Comment on above: Performed By: #### H STROPN, CMP, TSH, LIPA #### [facility] [address] [address] [address] Tomas Rodriguez Color (U) DK. ORANGE Abnormal YELLOW [facility] Comment on above: Performed By: #### H STROPN, CMP, TSH, LIPA #### [facility] [address] [address] [address] Tomas SIFUENTES A micrscopic examination will be performed if indicated. Normal [facility] Comment on above: Performed By: #### H STROPN, CMP, TSH, LIPA #### [facility] [address] [address] [address] Tomas Rodriguez Glucose Ql (U) 100 mg/dl Abnormal NEGATIVE The [facility] Comment on above: Performed By: #### H STROPN, CMP, TSH, LIPA #### [facility] [address] [address] [address] Tomas Rodriguez Hemoglobin Ql (U) Negative Normal NEGATIVE The [facility] Comment on above: Performed By: #### H STROPN, CMP, TSH, LIPA #### [facility] [address] [address] [address] Tomas Rodriguez Ketones Ql (U) TRACE Abnormal NEGATIVE The [facility] Comment on above: Performed By: #### H STROPN, CMP, TSH, LIPA #### [facility] [address] [address] [address] Tomas Rodriguez LEUKOCYTES Negative Normal NEGATIVE The [facility] Comment on above: Performed By: #### H STROPN, CMP, TSH, LIPA #### [facility] [address] [address] [address] Tomas Rodriguez Nitrite Ql (U) Negative Normal NEGATIVE [facility] Comment on above: Performed By: #### H STROPN, CMP, TSH, LIPA #### [facility] [address] [address] [address] Tomas Rodriguez pH (U) 5.5 [pH] Normal 5-9 [facility] Comment on above: Performed By: #### H STROPN, CMP, TSH, LIPA #### [facility] [address] [address] [address] Tomas Rodriguez Protein (U) [Mass/Vol] 100 mg/dL Abnormal NEGAT DIONISIO/ TRACE [facility] Comment on above: Performed By: #### H STROPN, CMP, TSH, LIPA #### [facility] [address] [address] [address] Tomas Rodriguez SPEC GRAVITY >=1.030 Abnormal 1.005-<=1.025 [facility] Comment on above: Performed By: #### H STROPN, CMP, TSH, LIPA #### [facility] [address] [address] [address] Tomas Rodriguez UR MICRO IND INDICATED Normal [facility] Comment on above: Performed By: #### H STROPN, CMP, TSH, LIPA #### [facility] [address] [address] [address] Tomas Rodriguez Urobilinogen Qn (U) 0.2 {Dennis'U}/dL Normal 0.2 - 1. 0 [facility] Comment on above: Performed By: #### H STROPN, CMP, TSH, LIPA #### [facility] [address] [place] [address] Dr. Tomas Rodriguez GI PANEL (PCR)on 01-25-2022 Adenovirus F 40/41 Not detected Normal NOT DETECTED Th [facility] Comment on above: Performed By: #### C BC #### [facility] [address] [place] [address] Dr. Tomas Rodriguez Astrovirus Not detected Normal NOT DETECTED The [facility] Comment on above: Performed By: #### C BC #### [facility] [address] [address] [address] Tomas Lopez. Diff toxin A/B Detected Critically abnormal NOT DETECTED [facility] Comment on above: Performed By: #### C BC #### [facility] [address] [place] [address] Dr. Tomas Rodriguez Campylobacter Not detected Normal NOT DETECTED [facility] Comment on above: Performed By: #### C BC #### [facility] [address] [place] [address] Dr. Tomas Rodriguez Cryptosporidium Not detected Normal NOT DETECTED [facility] Comment on above: Performed By: #### C BC #### [facility] [address] [place] [address] Dr. Tomas Rodriguez Cyclos. Cayetanensis Not detected Normal NOT DETECTED [facility] Comment on above: Performed By: #### C BC #### [facility] [address] [place] [address] Dr. Tomas Rodriguez E. Coli O157 Not Applicable Normal Not Applicable [facility] Comment on above: Performed By: #### C BC #### [facility] [address] [place] [address] Dr. Tomas Rodriguez E. histolytica Not detected Normal NOT DETECTED [facility] Comment on above: Performed By: #### C BC #### [facility] [address] [place] [address] Dr. Tomas Rodriguez EAEC Not detected Normal NOT DETECTED The [facility] Comment on above: Performed By: #### C BC #### [facility] [address] [place] [address] Dr. Tomas Rodriguez EIEC Not detected Normal NOT DETECTED The [facility] Comment on above: Performed By: #### C BC #### [facility] [address] [place] [address] Dr. Tomas Rodriguez EPEC Not detected Normal NOT DETECTED The [facility] Comment on above: Performed By: #### C BC #### [facility] [address] [address] [address] Tomas Rodriguez ETEC Not detected Normal NOT DETECTED [facility] Comment on above: Performed By: #### C BC #### [facility] [address] [address] [address] Tomas Rodriguez G. Lamblia Not detected Normal NOT DETECTED The [facility] Comment on above: Performed By: #### C BC #### [facility] [address] [address] [address] Tomas HENRIQUEZ CONTROLS PASSED Normal [facility] Comment on above: Performed By: #### C BC #### [facility] [address] [address] [address] Tomas UMANZOR HEADER GI PANEL BACTERIA Normal T [facility] Comment on above: Performed By: #### C BC #### [facility] [address] [address] [address] Tomas SAMPSON ECOLI GI PANEL DIARRHEAGENIC E.COLI / SHIGELLA Normal [facility] Comment on above: Performed By: #### C BC #### [facility] [address] [place] [address] Dr. Tomas SAMPSON INFO SEE BELOW Normal [facility] Comment on above: Result Comment: EAEC - Enteroaggregative E. Coli EPEC- Enteropathogenic E. Coli ETEC- Enterotoxigenic E. Coli lt/st STEC- Shigella-like toxin-producing E. Coli stx1/stx2 EIEC- Shigella/Enteroinvasive E. Coli Performed By: #### C BC #### [facility] [address] [address] [address] Tomas SAMPSON PARASITES GI PANEL PARASITES Normal [facility] Comment on above: Performed By: #### C BC #### [facility] [address] [address] [address] Tomas SAMPSON VIRUS GI PANEL VIRUSES Normal [facility] Comment on above: Performed By: #### C BC #### [facility] [address] [place] [address] Dr. Tomas Rodriguez Norovirus GI/GII Not detected Normal NOT DETECTED The [facility] Comment on above: Performed By: #### C BC #### [facility] [address] [address] [address] Tomas Rodriguez P. Shigelloides Not detected Normal NOT DETECTED [facility] Comment on above: Performed By: #### C BC #### [facility] [address] [place] [address] Dr. Tomas Rodriguez Rotavirus A Not detected Normal NOT DETECTED The [facility] Comment on above: Performed By: #### C BC #### [facility] [address] [place] [address] Dr. Tomas Rodriguez Salmonella Not detected Normal NOT DETECTED The [facility] Comment on above: Performed By: #### C BC #### [facility] [address] [place] [address] Dr. Tomas Rodriguez Sapovirus Not detected Normal NOT DETECTED The [facility] Comment on above: Performed By: #### C BC #### [facility] [address] [place] [address] Dr. Tomas Rodriguez STEC Not detected Normal NOT DETECTED [facility] Comment on above: Performed By: #### C BC #### [facility] [address] [place] [address] Dr. Tomas Rodriguez Vibrio Not detected Normal NOT DETECTED The [facility] Comment on above: Performed By: #### C BC #### [facility] [address] [place] [address] Dr. Tomas Rodriguez Vibrio Cholera Not detected Normal NOT DETECTED [facility] Comment on above: Performed By: #### C BC #### [facility] [address] [place] [address] Dr. Tomas Rodriguez Y. Enterocolitica Not detected Normal NOT DETECTED [facility] Comment on above: Performed By: #### C BC #### [facility] [address] [place] [address] Dr. Tomas Rodriguez LACTATE/LACTIC ACIDon 2021 Lactate [Moles/Vol] 2.4 mmol/L Critically high 0.4-1.9 [facility] Comment on above: Performed By: #### L ACT #### [facility] [address] [address] [address] Tomas Rodriguez Lactate [Moles/Vol] 2.9 mmol/L Critically high 0.4-1.9 [facility] Comment on above: Performed By: #### L ACT ####[facility] [id number] [address]Dr. Tomas Rodriguez LIPASEon 01-25-2022 Lipase [Catalytic activity/Vol] 202.0 U/L Normal 73.0-393.0 [facility] Comment on above: Performed By: #### H STROPN, CMP, TSH, LIPA #### [facility] [address] [address] [address] Tomas Rodriguez PROF 14(COMP METB)on 022 Albumin [Mass/Vol] 4.2 g/dL Normal 3.4-5.0 [facility] Comment on above: Performed By: #### H STROPN, CMP, TSH, LIPA #### [facility] [address] [address] [address] Tomas Rodriguez Albumin/Globulin [Mass ratio] 1.0 {ratio} Normal [facility] Comment on above: Performed By: #### H STROPN, CMP, TSH, LIPA #### [facility] [address] [address] [address] Tomas Rodriguez ALP [Catalytic activity/Vol] 124 U/L Critically high 46-116 [facility] Comment on above: Performed By: #### H STROPN, CMP, TSH, LIPA #### [facility] [address] [address] [address] Tomas Rodriguez ALT [Catalytic activity/Vol] 34 U/L Normal 14-59 [facility] Comment on above: Performed By: #### H STROPN, CMP, TSH, LIPA #### [facility] [address] [address] [address] Tomas Rodriguez Anion gap [Moles/Vol] 14.6 mmol/L Normal Th e [facility] Comment on above: Performed By: #### H STROPN, CMP, TSH, LIPA #### [facility] [address] [address] [address] Tomas Rodriguez AST [Catalytic activity/Vol] 22 U/L Normal 15-37 [facility] Comment on above: Performed By: #### H STROPN, CMP, TSH, LIPA #### [facility] [address] [address] [address] Tomas Rodriguez Bilirubin [Mass/Vol] 0.4 mg/dL Normal 0.2-1.0 [facility] Comment on above: Performed By: #### H STROPN, CMP, TSH, LIPA #### [facility] [address] [address] [address] Tomas Rodriguez Calcium [Mass/Vol] 9.3 mg/dL Normal 8.5-10.1 [facility] Comment on above: Performed By: #### H STROPN, CMP, TSH, LIPA #### [facility] [address] [place] [address] Dr. Tomas Rodriguez Chloride [Moles/Vol] 103 mmol/L Normal 98-107 [facility] Comment on above: Performed By: #### H STROPN, CMP, TSH, LIPA #### [facility] [address] [place] [address] Dr. Tomas Rodriguez CO2 [Moles/Vol] 25.0 mmol/L Normal 21.0-32.0 [facility] Comment on above: Performed By: #### H STROPN, CMP, TSH, LIPA #### [facility] [address] [address] [address] Tomas Rodriguez Creatinine [Mass/Vol] 1.57 mg/dL Critically high 0.55-1.02 [facility] Comment on above: Performed By: #### H STROPN, CMP, TSH, LIPA #### [facility] [address] [address] [address] Tomas Rodriguez EGFR-AF HONDURAN 40 mL/min/1.73m2 Critically low >=60 [facility] Comment on above: Performed By: #### H STROPN, CMP, TSH, LIPA #### [facility] [address] [address] [address] Tomas Rodriguez EGFR-NON AF HONDURAN 33 mL/min/1.73m2 Critically low >=60 [facility] Comment on above: Performed By: #### H STROPN, CMP, TSH, LIPA #### [facility] [address] [address] [address] Tomas Rodriguez Globulin (S) [Mass/Vol] 4.1 g/dL Normal [facility] Comment on above: Performed By: #### H STROPN, CMP, TSH, LIPA #### [facility] [address] [place] [address] Dr. Tomas Rodriguez Glucose [Mass/Vol] 123 mg/dL Critically high 74-106 [facility] Comment on above: Performed By: #### H STROPN, CMP, TSH, LIPA #### [facility] [address] [address] [address] Tomas Rodriguez Potassium [Moles/Vol] 3.6 mmol/L Normal 3.5-5.1 [facility] Comment on above: Performed By: #### H STROPN, CMP, TSH, LIPA #### [facility] [address] [place] [address] Dr. Tomas Rodriguez Protein [Mass/Vol] 8.3 g/dL Critically high 6.4-8.2 [facility] Comment on above: Performed By: #### H STROPN, CMP, TSH, LIPA #### [facility] [address] [place] [address] Dr. Tomas Rodriguez Sodium [Moles/Vol] 139 mmol/L Normal 136-145 [facility] Comment on above: Performed By: #### H STROPN, CMP, TSH, LIPA #### [facility] [address] [place] [address] Dr. Tomas Rodriguez Urea nitrogen [Mass/Vol] 18.0 mg/dL Normal 7.0-18.0 [facility] Comment on above: Performed By: #### H STROPN, CMP, TSH, LIPA #### [facility] [address] [address] [address] Tomas Rodriguez Urea nitrogen/Creatinine [Mass ratio] 11.5 mg/mg Normal [facility] Comment on above: Performed By: #### H STROPN, CMP, TSH, LIPA #### [facility] [address] [address] [address] Tomas Rodriguez PROTIMEon 01-25-2022 INR Coag (PPP) [Relative time] 0.98 {INR} Normal [facility] Comment on above: Performed By: #### C BC #### [facility] [address] [place] [address] Dr. Tomas Rodriguez INR GUIDELINES SEE BELOW Normal [facility] Comment on above: Result Comment: ESTEFANÍA RED INR: 2.0 - 3.0 CONDITIONS NOT LISTED BELOW 2.5 - 3.5 FOR PROSTHETIC HEART VALVE REPLACEMENT 2.5 - 3.5 RECURRENT THROMBOSIS Performed By: #### C BC #### [facility] [address] [place] [address] Dr. Tomas Rodriguez PT Coag (PPP) [Time] 10.6 s Normal 9.0-11.6 [facility] Comment on above: Performed By: #### C BC #### [facility] [address] [place] [address] Dr. Tomas Rodriguez PTTon 01-25-2022 aPTT Coag (Bld) [Time] 25.1 s Normal 22.3-36.2 [facility] Comment on above: Performed By: #### C BC #### [facility] [address] [place] [address] Dr. Tomas Rodriguez TROPONIN, HIGH SENSITIVITYon 01-25-2022 HSTROP 9.9 pg/mL Normal 4.0-51.3 [facility] Comment on above: Result Comment: CUT- OFF POINTS HAVE BEEN ESTABLISHED BASED ON THE FOURTH UNIVERSAL DEFINITIONS OF MYOCARDIAL INFARCTION. THE UPPER REFERENCE LIMIT (URL) OF TROPONIN, DEFINED THE 99TH PERCENTILE OF cTnI DISTRIBUTION IN A REFERENCE POPULATION, HAS BEEN CONFIRMED THE DECISION THRESHOLD FOR CO DIAGNOSIS. Performed By: #### H STROPN, CMP, TSH, LIPA #### [facility] [address] [address] [address] Tomas Rodriguez TSHon 01-25-2022 TSH 7.935 uIU/mL Critically high 0.358-3.740 [facility] Comment on above: Performed By: #### H STROPN, CMP, TSH, LIPA #### [facility] [address] [address] [address] Tomas Rodriguez URINE MICROSCOPIC ONLYon BACTERIA MODERATE Abnormal NONE SEEN The [facility] Comment on above: Performed By: #### H STROPN, CMP, TSH, LIPA #### [facility] [address] [address] [address] Tomas Rodriguez Bacteria identified Cx Nom (U) INDICATED Normal [facility] Comment on above: Performed By: #### H STROPN, CMP, TSH, LIPA #### [facility] [address] [address] [address] Tomas Rodriguez CAST SEEN Abnormal NONE SEEN [facility] Comment on above: Performed By: #### H STROPN, CMP, TSH, LIPA #### [facility] [address] [address] [address] Tomas Rodriguez Crystals LM Nom (Urine sed) NONE SEEN Normal NONE SEEN [facility] Comment on above: Performed By: #### H STROPN, CMP, TSH, LIPA #### [facility] [address] [address] [address] Tomas Rodriguez Epithelial cells LM Ql (Urine sed) FEW Abnormal NONE SEEN /RARE [facility] Comment on above: Performed By: #### H STROPN, CMP, TSH, LIPA #### [facility] [address] [address] [address] Tomas Rodriguez MUCOUS TRACE Abnormal NONE SEEN The [facility] Comment on above: Performed By: #### H STROPN, CMP, TSH, LIPA #### [facility] [address] [address] [address] Tomas Rodriguez RBC NONE SEEN Abnormal 0-2 [facility] Comment on above: Performed By: #### H STROPN, CMP, TSH, LIPA #### [facility] [address] [address] [address] Tomas Rodriguez WBC 2-5 Abnormal NONE SEEN The [facility] Comment on above: Performed By: #### H STROPN, CMP, TSH, LIPA #### [facility] [address] [address] [address] Tomas Rodriguez XR CHEST 1 Von 01-25-2022 XR CHEST 1 V EXAMINATION: XR CHES T 1 V HISTORY: Syncope COMPARISON: No relevant comparison available. TECHNIQUE: AP portable erect FINDINGS: LUNGS: No significant pulmonary parenchymal abnormalities. VASCULATURE: No increased pulmonary vasculature. PLEURA: No pneumothorax, effusion, or pleural thickening. CARDIAC: No cardiomegaly or cardiac silhouette abnormality. MEDIASTINUM: No visible mass or adenopathy. BONES: No fracture or visible bone lesion. OTHER: Negative. IMPRESSION: No acute disease. Electronically authenticated by: RIVERA ROUSSEAU Date: 2022-01-25 15:13 Normal [facility] CBC AUTO DIFFon 07-10-2021 BASO # 0.0 103/ul Normal 0.0-0.1 [facility] Comment on above: Performed By: #### C BC #### [facility] [address] [place] [address] Dr. Tomas Rodriguez Basophils/100 WBC (Bld) 0.2 % Normal 0.2-2.0 [facility] Comment on above: Performed By: #### C BC #### [facility] [address] [place] [address] Dr. Tomas Rodriguez EO # 0.1 103/ul Normal 0.0-0.7 [facility] Comment on above: Performed By: #### C BC #### [facility] [address] [address] [address] Tomas Rodriguez Eosinophils/100 WBC (Bld) 0.9 % Normal 0.9-7.0 The [facility] Comment on above: Performed By: #### C BC #### [facility] [address] [place] [address] Dr. Tomas Rodriguez Erythrocyte distribution width (RBC) [Ratio] 13.1 % Normal 11.0-15.0 [facility] Comment on above: Performed By: #### C BC #### [facility] [address] [place] [address] Dr. Tomas Rodriguez Hematocrit (Bld) [Volume fraction] 40.1 % Normal 36.0-48.0 [facility] Comment on above: Performed By: #### C BC #### [facility] [address] [place] [address] Dr. Tomas Rodriguez Hemoglobin (Bld) [Mass/Vol] 13.1 g/dL Normal 12.0-16.0 [facility] Comment on above: Performed By: #### C BC #### [facility] [address] [place] [address] Dr. Tomas Rodriguez IG # 0.05 10e3/ul Critically high 0.00-0.03 [facility] Comment on above: Performed By: #### C BC #### [facility] [address] [place] [address] Dr. Tomas Rodriguez IG % 0.3 % Normal 0.0-0.5 [facility] Comment on above: Performed By: #### C BC #### [facility] [address] [place] [address] Dr. Tomas Rodriguez LYMPH # 2.4 103/ul Normal 1.2-3.8 [facility] Comment on above: Performed By: #### C BC #### [facility] [address] [place] [address] Dr. Tomas Rodriguez Lymphocytes/100 WBC (Bld) 15.3 % Critically low 20.5-60.0 [facility] Comment on above: Performed By: #### C BC #### [facility] [address] [place] [address] Dr. Tomas Rodriguez MANUAL DIFF REQ NO Normal [facility] Comment on above: Performed By: #### C BC #### [facility] [address] [place] [address] Dr. Tomas Rodriguez MCH (RBC) [Entitic mass] 28.1 pg Normal 26.7-34.0 [facility] Comment on above: Performed By: #### C BC #### [facility] [address] [address] [address] Tomas Rodriguez MCHC (RBC) [Mass/Vol] 32.7 g/dL Normal 29.9-35.2 [facility] Comment on above: Performed By: #### C BC #### [facility] [address] [address] [address] Tomas Rodriguez MCV (RBC) [Entitic vol] 85.9 fL Normal 81.0-99.0 [facility] Comment on above: Performed By: #### C BC #### [facility] [address] [address] [address] Tomas Rodriguez MONO # 1.2 103/ul Critically high 0.3-0.8 [facility] Comment on above: Performed By: #### C BC #### [facility] [address] [address] [address] Tomas Rodriguez Monocytes/100 WBC (Bld) 7.5 % Normal 1.7-12.0 [facility] Comment on above: Performed By: #### C BC #### [facility] [address] [address] [address] Tomas Rodriguez NEUT # 11.7 103/ul Critically high 1.4-6.5 [facility] Comment on above: Performed By: #### C BC #### [facility] [address] [address] [address] Tomas Rodriguez Neutrophils/100 WBC (Bld) 75.8 % Critically high 43.0-75.0 [facility] Comment on above: Performed By: #### C BC #### [facility] [address] [address] [address] Tomas Rodriguez Platelet mean volume (Bld) [Entitic vol] 9.4 fL Critically low 9.5-13.5 [facility] Comment on above: Performed By: #### C BC #### [facility] [address] [address] [address] Tomas Rodriguez PLT 517 103/ul Critically high 150-450 [facility] Comment on above: Performed By: #### C BC #### [facility] [address] [place], [place] [address] Dr. Tomas Rodriguez RBC 4.67 106/ul Normal 4.20-5.40 [facility] Comment on above: Performed By: #### C BC #### [facility] [address] [place], [place] [address] Dr. Tomas Rodriguez WBC 15.5 103/ul Critically high 4.0-11.0 [facility] Comment on above: Performed By: #### C BC #### [facility] [address] [place], [place] [address] ABD/PELV W CONon 07-11-19 CT ABD/PELV W CON EXAMINATION: CT ABD/PELV W CON HISTORY: DIARRHEA, UNSPECIFIED COMPARISON: None. TECHNIQUE: CT of the abdomen/pelvis with intravenous contrast. Dose reduction techniques were achieved by using automated exposure control and/or adjustment of mA and/or kV according to patient size and/or use of iterative reconstruction technique. FINDINGS: Supervisor Packing Room: No pertinent findings, which are not already discussed below. Tubes/lines/drains: None. CHEST: Lungs: Clear. Cardiac and vascular: No cardiomegaly or significant pericardial effusion. ABDOMEN: Liver: Unremarkable. Gallbladder and Biliary Tree: Unremarkable. Spleen: Unremarkable. Pancreas: Diffuse atrophy. Adrenal Glands: Left adrenal gland nodule with indeterminate density measuring 1.1 x 3.1 x 1.8 cm. Normal right adrenal gland.. Kidneys, Ureters, Bladder: No concerning renal lesions or masses. No urolithiasis. No hydronephrosis or hydroureterosis. Decompressed bladder. Gastrointestinal: Mild to moderate left colonic diverticulosis. No mural thickening or inflammatory changes. No dilated loops of small or large bowel. Reproductive organ(s): Hysterectomy. Lymphatic: No concerning retroperitoneal, mesenteric, or inguinal adenopathy. Vessels: Extensive atherosclerotic calcifications without aneurysmal dilatation. BONES AND SOFT TISSUE: Bones: No acute fracture. No concerning osseous lesions. Moderate right hip osteoarthritis with bilateral synovial herniation herniation pits. Soft Tissue: Within normal limits. IMPRESSION: 1. No acute intra-abdominal/pelvi c findings. 2. Colonic diverticulosis. 3. Indeterminate left adrenal gland nodule measuring 3.1 cm. Per ACR white paper, recommend nonemergent adrenal CT. Electronically authenticated by: TAYLOR HONEYCUTT Date: 2021-07-10 17:36 Normal [facility] GI PANEL (PCR)on 07-10-2021 Adenovirus F 40/41 Not detected Normal NOT DETECTED [facility] Comment on above: Performed By: #### H STROPN, CMP, TSH, LIPA #### [facility] [address] [address] [address] Tomas Rodriguez Astrovirus Not detected Normal NOT DETECTED [facility] Comment on above: Performed By: #### H STROPN, CMP, TSH, LIPA #### [facility] [address] [address] [address] Tomas Rodriguez C. Diff toxin A/B Not detected Normal NOT DETECTED [facility] Comment on above: Performed By: #### H STROPN, CMP, TSH, LIPA #### [facility] [address] [address] [address] Tomas Rodriguez Campylobacter Not detected Normal NOT DETECTED [facility] Comment on above: Performed By: #### H STROPN, CMP, TSH, LIPA #### [facility] [address] [address] [address] Tomas Rodriguez Cryptosporidium Not detected Normal NOT DETECTED [facility] Comment on above: Performed By: #### H STROPN, CMP, TSH, LIPA #### [facility] [address] [address] [address] Tomas Rodriguez Cyclos. Cayetanensis Not detected Normal NOT DETECTED [facility] Comment on above: Performed By: #### H STROPN, CMP, TSH, LIPA #### [facility] [address] [address] [address] Tomas Rodriguez E. Coli O157 Not Applicable Normal Not Applicable [facility] Comment on above: Performed By: #### H STROPN, CMP, TSH, LIPA #### [facility] [address] [address] [address] Tomas Rodriguez E. histolytica Not detected Normal NOT DETECTED [facility] Comment on above: Performed By: #### H STROPN, CMP, TSH, LIPA #### [facility] [address] [address] [address] Tomas Rodriguez EAEC Not detected Normal NOT DETECTED [facility] Comment on above: Performed By: #### H STROPN, CMP, TSH, LIPA #### [facility] [address] [address] [address] Tomas Rodriguez EIEC Not detected Normal NOT DETECTED [facility] Comment on above: Performed By: #### H STROPN, CMP, TSH, LIPA #### [facility] [address] [address] [address] Tomas Rodriguez EPEC Not detected Normal NOT DETECTED [facility] Comment on above: Performed By: #### H STROPN, CMP, TSH, LIPA #### [facility] [address] [address] [address] Tomas Rodriguez ETEC Not detected Normal NOT DETECTED [facility] Comment on above: Performed By: #### H STROPN, CMP, TSH, LIPA #### [facility] [address] [address] [address] Tomas Alfaro Lamblia Not detected Normal NOT DETECTED [facility] Comment on above: Performed By: #### H STROPN, CMP, TSH, LIPA #### [facility] [address] [address] [address] Tomas HENRIQUEZ CONTROLS PASSED Normal [facility] Comment on above: Performed By: #### H STROPN, CMP, TSH, LIPA #### [facility] [address] [address] [address] Tomas ESQUIVEL ERNA HEADER GI PANEL BACTERIA Normal [facility] Comment on above: Performed By: #### H STROPN, CMP, TSH, LIPA #### [facility] [address] [address] [address] Tomas ESQUIVELHD ECOLI GI PANEL DIARRHEAGENIC E.COLI / SHIGELLA Normal [facility] Comment on above: Performed By: #### H STROPN, CMP, TSH, LIPA #### [facility] [address] [address] [address] Tomas SAMPSON INFO SEE BELOW Normal [facility] Comment on above: Result Comment: EAEC - Enteroaggregative E. Coli EPEC- Enteropathogenic E. Coli ETEC- Enterotoxigenic E. Coli lt/st STEC- Shigella-like toxin-producing E. Coli stx1/stx2 EIEC- Shigella/Enteroinvasive E. Coli Performed By: #### H STROPN, CMP, TSH, LIPA #### [facility] [address] [address] [address] Tomas SAMPSON PARASITES GI PANEL PARASITES Normal [facility] Comment on above: Performed By: #### H STROPN, CMP, TSH, LIPA #### [facility] [address] [address] [address] Tomas SAMPSON VIRUS GI PANEL VIRUSES Normal [facility] Comment on above: Performed By: #### H STROPN, CMP, TSH, LIPA #### [facility] [address] [address] [address] Tomas Rodriguez Norovirus GI/GII Not detected Normal NOT DETECTED [facility] Comment on above: Performed By: #### H STROPN, CMP, TSH, LIPA #### [facility] [address] [address] [address] Tomas Rodriguez P. Shigelloides Not detected Normal NOT DETECTED [facility] Comment on above: Performed By: #### H STROPN, CMP, TSH, LIPA #### [facility] [address] [address] [address] Tomas Rodriguez Rotavirus A Not detected Normal NOT DETECTED [facility] Comment on above: Performed By: #### H STROPN, CMP, TSH, LIPA #### [facility] [address] [address] [address] Tomas Rodriguez Salmonella Not detected Normal NOT DETECTED [facility] Comment on above: Performed By: #### H STROPN, CMP, TSH, LIPA #### [facility] [address] [address] [address] Tomas Rodriguez Sapovirus Not detected Normal NOT DETECTED [facility] Comment on above: Performed By: #### H STROPN, CMP, TSH, LIPA #### [facility] [address] [address] [address] Tomas Rodriguez STEC Not detected Normal NOT DETECTED [facility] Comment on above: Performed By: #### H STROPN, CMP, TSH, LIPA #### [facility] [address] [address] [address] Tomas Rodriguez Vibrio Not detected Normal NOT DETECTED [facility] Comment on above: Performed By: #### H STROPN, CMP, TSH, LIPA #### [facility] [address] [address] [address] Tomas Rodriguez Vibrio Cholera Not detected Normal NOT DETECTED [facility] Comment on above: Performed By: #### H STROPN, CMP, TSH, LIPA #### [facility] [address] [address] [address] Tomas Rodriguez Y. Enterocolitica Not detected Normal NOT DETECTED [facility] Comment on above: Performed By: #### H STROPN, CMP, TSH, LIPA #### [facility] [address] [address] [address] Tomas Rodriguez LACTATE/LACTIC ACIDon 2021 Lactate [Moles/Vol] 1.9 mmol/L Normal 0.7-2.0 [facility] Comment on above: Performed By: #### C BC #### [facility] [address] [address] [address] Tomas Rodriguez LIPASEon 07-10-2021 Lipase [Catalytic activity/Vol] 98.0 U/L Normal 23.0-300.0 [facility] Comment on above: Performed By: #### C MP, HSTROPN, LIPA ####[facility] [address] [address]Dr. Tomas Rodriguez PROF 14(COMP METB)on 022 Albumin [Mass/Vol] 4.1 g/dL Normal 3.4-5.0 [facility] Comment on above: Performed By: #### C MP, HSTROPN, LIPA ####[facility] [address] [address]Dr. Tomas Rodriguez Albumin/Globulin [Mass ratio] 0.9 {ratio} Normal [facility] Comment on above: Performed By: #### C MP, HSTROPN, LIPA ####[facility] [address] [address]Dr. Tomas Rodriguez ALP [Catalytic activity/Vol] 155 U/L Critically high 46-116 [facility] Comment on above: Performed By: #### C MP, HSTROPN, LIPA ####[facility] [address] [address]Dr. Tomas Rodriguez ALT [Catalytic activity/Vol] 121 U/L Critically high 14-59 [facility] Comment on above: Performed By: #### C MP, HSTROPN, LIPA ####[facility] [address] [address]Dr. Tomas Rodriguez Anion gap [Moles/Vol] 16.8 mmol/L Normal [facility] Comment on above: Performed By: #### C MP, HSTROPN, LIPA ####[facility] [address] [place], [place] [address]Dr. Tomas Rodriguez AST [Catalytic activity/Vol] 58 U/L Critically high 15-37 [facility] Comment on above: Performed By: #### C MP, HSTROPN, LIPA ####[facility] [address] [address]Dr. Tomas Rodriguez Bilirubin [Mass/Vol] 0.3 mg/dL Normal 0.2-1.3 [facility] Comment on above: Performed By: #### C MP, HSTROPN, LIPA ####[facility] [address] [place], [place] [address]Dr. Tomas Rodriguez Calcium [Mass/Vol] 10.1 mg/dL Normal 8.5-10.1 [facility] Comment on above: Performed By: #### C MP, HSTROPN, LIPA ####[facility] [address] [address]Dr. Tomas Rodriguez Chloride [Moles/Vol] 93 mmol/L Critically low 98-107 [facility] Comment on above: Performed By: #### C MP, HSTROPN, LIPA ####[facility] [address] [address]Dr. Tomas Rodriguez CO2 [Moles/Vol] 26.3 mmol/L Normal 22.0-30.0 [facility] Comment on above: Performed By: #### C MP, HSTROPN, LIPA ####[facility] [address] [address]Dr. Tomas Rodriguez Creatinine [Mass/Vol] 1.76 mg/dL Critically high 0.52-1.04 [facility] Comment on above: Performed By: #### C MP, HSTROPN, LIPA ####[facility] [address] [place], [place] [address]Dr. Tomas Rodriguez EGFR-AF HONDURAN 35 mL/min/1.73m2 Critically low >=60 [facility] Comment on above: Performed By: #### C MP, HSTROPN, LIPA ####[facility] [address] [place], [place] [address]Dr. Tomas Rodriguez EGFR-NON AF HONDURAN 29 mL/min/1.73m2 Critically low >=60 [facility] Comment on above: Performed By: #### C MP, HSTROPN, LIPA ####[facility] [address] [place], [place] [address]Dr. Tomas Rodriguez Globulin (S) [Mass/Vol] 4.8 g/dL Normal [facility] Comment on above: Performed By: #### C MP, HSTROPN, LIPA ####[facility] [address] [place], [place] [address]Dr. Tomas Rodriguez Glucose [Mass/Vol] 135 mg/dL Critically high 74-106 [facility] Comment on above: Performed By: #### C MP, HSTROPN, LIPA ####[facility] [address] [place], [place] [address]Dr. Tomas Rodriguez Potassium [Moles/Vol] 3.1 mmol/L Critically low 3.4-5.0 [facility] Comment on above: Performed By: #### C RENUKA, BREANATRNELIDA, LIPA ####[facility] [address] [address]Dr. Jacijamee oRdriguez Protein [Mass/Vol] 8.9 g/dL Critically high 6.1-8.2 [facility] Comment on above: Performed By: #### C RENUKA, HSTROPN, LIPA ####[facility] [address] [address]Dr. Tomas Rodriguez Sodium [Moles/Vol] 133 mmol/L Critically low 137-145 [facility] Comment on above: Performed By: #### C RENUKA, HSTROPN, LIPA ####[facility] [address] [place], [place] [address]Dr. Tomas Rodriguez Urea nitrogen [Mass/Vol] 28.0 mg/dL Critically high 7.0-18.0 [facility] Comment on above: Performed By: #### C RENUKA, HSTROPN, LIPA ####[facility] [address] [place], [place] [address]Dr. Tomas Rodriguez Urea nitrogen/Creatinine [Mass ratio] 15.9 mg/mg [facility] Comment on above: Performed By: #### C RENUKA, HSTROPN, LIPA ####[facility] [address] [place], [place] [address]Dr. Tomas Rodriguez STOOL CULTUREon 07-10-2021 Campylobacter Culture Final report Normal [facility] Comment on above: Performed By: #### C XSTOOL ####[facility] [address] [address]Dr. Tomas Rodriguez E coli Shiga Toxin EIA Negative Normal Negative [facility] Comment on above: Performed By: #### C XSTOOL ####[facility] [address] [place], [place] [address]Dr. Tomas Rodriguez Result 1 Comment Normal [facility] Comment on above: Result Comment: No S almonella or Shigella recovered. Performed By: #### C XSTOOL ####[facility] [address] [address]Dr. Tomas Rodriguez Result Comment: No C ampylobacter species isolated. Salmonella/Shigella Screen Final report Normal [facility] Comment on above: Performed By: #### C XSTOOL ####[facility] [address] [address]DrJosiane Rodriguez TROPONIN, HIGH SENSITIVITYon 07-10-2021 HSTROP 8.4 pg/mL Normal 4.0-35.5 [facility] Comment on above: Result Comment: CUT- OFF POINTS HAVE BEEN ESTABLISHED BASED ON THE FOURTH UNIVERSAL DEFINITIONS OF MYOCARDIAL INFARCTION. THE UPPER REFERENCE LIMIT (URL) OF TROPONIN, DEFINED THE 99TH PERCENTILE OF cTnI DISTRIBUTION IN A REFERENCE POPULATION, HAS BEEN CONFIRMED THE DECISION THRESHOLD FOR CO DIAGNOSIS. Performed By: #### C MP, HSTROPN, LIPA ####[facility] [address] [address]DrJosiane Rodriguez C. DIFF PCRon 07-06-2021 C. DIFFICILE PCR Negative Normal NEGATIVE [facility] Comment on above: Performed By: #### C DIFPOC ####[facility] [address] [address]Dr. Tomas Rodriguez CBC AUTO DIFFon 06-22-2021 BASO # 0.0 103/ul Normal 0.0-0.1 [facility] Comment on above: Performed By: #### H STROPN, CMP, TSH, LIPA #### [facility] [address] [place] [address] Dr. Tomas Rodriguez Basophils/100 WBC (Bld) 0.5 % Normal 0.2-2.0 [facility] Comment on above: Performed By: #### H STROPN, CMP, TSH, LIPA #### [facility] [address] [place] [address] Dr. Tomas Rodriguez EO # 0.4 103/ul Normal 0.0-0.7 [facility] Comment on above: Performed By: #### H STROPN, CMP, TSH, LIPA #### [facility] [address] [place] [address] Dr. Tomas Rodriguez Eosinophils/100 WBC (Bld) 5.5 % Normal 0.9-7.0 [facility] Comment on above: Performed By: #### H STROPN, CMP, TSH, LIPA #### [facility] [address] [place] [address] Dr. Tomas Rodriguez Erythrocyte distribution width (RBC) [Ratio] 14.3 % Normal 11.0-15.0 [facility] Comment on above: Performed By: #### H STROPN, CMP, TSH, LIPA #### [facility] [address] [place] [address] Dr. Tomas Rodriguez Hematocrit (Bld) [Volume fraction] 38.8 % Normal 36.0-48.0 [facility] Comment on above: Performed By: #### H STROPN, CMP, TSH, LIPA #### [facility] [address] [place] [address] Dr. Tomas Rodriguez Hemoglobin (Bld) [Mass/Vol] 12.5 g/dL Normal 12.0-16.0 [facility] Comment on above: Performed By: #### H STROPN, CMP, TSH, LIPA #### [facility] [address] [place] [address] Dr. Tomas Rodriguez IG # 0.01 10e3/ul Normal 0.00-0.03 [facility] Comment on above: Performed By: #### H STROPN, CMP, TSH, LIPA #### [facility] [address] [place] [address] Dr. Tomas Rodriguez IG % 0.1 % Normal 0.0-0.5 [facility] Comment on above: Performed By: #### H STROPN, CMP, TSH, LIPA #### [facility] [address] [place] [address] Dr. Tomas Rodriguez LYMPH # 2.6 103/ul Normal 1.2-3.8 [facility] Comment on above: Performed By: #### H STROPN, CMP, TSH, LIPA #### [facility] [address] [place], [place] [id number] Dr. Tomas Rodriguez Lymphocytes/100 WBC (Bld) 33.8 % Normal 20.5-60.0 [facility] Comment on above: Performed By: #### H STROPN, CMP, TSH, LIPA #### [facility] [address] [place] [address] Dr. Tomas Rodriguez MANUAL DIFF REQ NO Normal [facility] Comment on above: Performed By: #### H STROPN, CMP, TSH, LIPA #### [facility] [address] [place] [address] Dr. Tomas Rodriguez MCH (RBC) [Entitic mass] 28.7 pg Normal 26.7-34.0 [facility] Comment on above: Performed By: #### H STROPN, CMP, TSH, LIPA #### [facility] [address] [place] [address] Dr. Tomas Rodriguez MCHC (RBC) [Mass/Vol] 32.2 g/dL Normal 29.9-35.2 [facility] Comment on above: Performed By: #### H STROPN, CMP, TSH, LIPA #### [facility] [address] [place] [address] Dr. Tomas Rodriguez MCV (RBC) [Entitic vol] 89.0 fL Normal 81.0-99.0 [facility] Comment on above: Performed By: #### H STROPN, CMP, TSH, LIPA #### [facility] [address] [place] [address] Dr. Tomas Rodriguez MONO # 0.6 103/ul Normal 0.3-0.8 [facility] Comment on above: Performed By: #### H STROPN, CMP, TSH, LIPA #### [facility] [address] [place] [address] Dr. Tomas Rodriguez Monocytes/100 WBC (Bld) 7.9 % Normal 1.7-12.0 [facility] Comment on above: Performed By: #### H STROPN, CMP, TSH, LIPA #### [facility] [address] [place] [address] Dr. Tomas Rodriguez NEUT # 3.9 103/ul Normal 1.4-6.5 [facility] Comment on above: Performed By: #### H STROPN, CMP, TSH, LIPA #### [facility] [address] [address] [address] Tomas Rodriguez Neutrophils/100 WBC (Bld) 52.2 % Normal 43.0-75.0 [facility] Comment on above: Performed By: #### H STROPN, CMP, TSH, LIPA #### [facility] [address] [address] [address] Tomas Rodriguez Platelet mean volume (Bld) [Entitic vol] 9.3 fL Critically low 9.5-13.5 [facility] Comment on above: Performed By: #### H STROPN, CMP, TSH, LIPA #### [facility] [address] [address] [address] Tomas Rodriguez PLT 344 103/ul Normal 150-450 [facility] Comment on above: Performed By: #### H STROPN, CMP, TSH, LIPA #### [facility] [address] [address] [address] Tomas Rodriguez RBC 4.36 106/ul Normal 4.20-5.40 [facility] Comment on above: Performed By: #### H STROPN, CMP, TSH, LIPA #### [facility] [address] [address] [address] Tomas Rodriguez WBC 7.6 103/ul Normal 4.0-11.0 [facility] Comment on above: Performed By: #### H STROPN, CMP, TSH, LIPA #### [facility] [address] [place] [address] Dr. Tomas Rodriguez LIPID PROFILEon 06-22-2021 CHOL-HDL RATIO NORM SEE BELOW Normal [facility] Comment on above: Result Comment: 3.3 - 4.4 LOW RISK 4.4 - 7.1 AVERAGE RISK 7.1 - 11.0 MODERATE RISK >11.0 HIGH RISK Performed By: #### C BC #### [facility] [address] [place] [address] Dr. Tomas Rodriguez Cholesterol [Mass/Vol] 253 mg/dL Critically high <=200 [facility] Comment on above: Performed By: #### C BC #### [facility] [address] [address] [address] Tomas Rodriguez Cholesterol in HDL [Mass/Vol] 55 mg/dL Normal 40-60 [facility] Comment on above: Performed By: #### C BC #### [facility] [address] [address] [address] Tomas Rodriguez Cholesterol in LDL [Mass/Vol] 170.6 mg/dL Normal [facility] Comment on above: Performed By: #### C BC #### [facility] [address] [address] [address] Tomas Rodriguez Cholesterol.total/Chol esterol in HDL [Mass ratio] 4.6 {ratio} Normal [facility] Comment on above: Performed By: #### C BC #### [facility] [address] [place] [address] Dr. Tomas Rodriguez HDL NORMAL > or = 60 mg/dl - LO W CARDIOVASCULAR RISK <40 mg/dl - HIGH CARDIOVASCULAR RISK Normal [facility] Comment on above: Performed By: #### C BC #### [facility] [address] [place] [address] Dr. Tomas Rodriguez LDL CALC NORMAL SEE BELOW Normal [facility] Comment on above: Result Comment: <100 mg/dl OPTIMAL 100 - 129 mg/dl NEAR OR ABOVE OPTIMAL 130 - 159 mg/dl BORDERLINE HIGH 160 - 189 mg/dl HIGH >190 mg/dl VERY HIGH Performed By: #### C BC #### [facility] [address] [place] [address] Dr. Tomas Rodriguez Triglyceride [Mass/Vol] 137 mg/dL Normal <=150 [facility] Comment on above: Performed By: #### C BC #### [facility] [address] [place] [address] Dr. Tomas Rodriguez VLDL CALC 27.4 mg/dL Normal [facility] Comment on above: Performed By: #### C BC #### [facility] [address] [place] [address] Dr. Tomas Rodriguez PROF CHEM 8 (BAS METB)on Anion gap [Moles/Vol] 13.0 mmol/L Normal Th [facility] Comment on above: Performed By: #### C BC #### [facility] [address] [place] [address] Dr. Tomas Rodriguez Calcium [Mass/Vol] 9.3 mg/dL Normal 8.5-10.1 [facility] Comment on above: Performed By: #### C BC #### [facility] [address] [place] [address] Dr. Tomas Rodriguez Chloride [Moles/Vol] 100 mmol/L Normal 98-107 [facility] Comment on above: Performed By: #### C BC #### [facility] [address] [place] [address] Dr. Tomas Rodriguez CO2 [Moles/Vol] 29.3 mmol/L Normal 22.0-30.0 [facility] Comment on above: Performed By: #### C BC #### [facility] [address] [place] [address] Dr. Tomas Rodriguez Creatinine [Mass/Vol] 0.88 mg/dL Normal 0.52-1.04 [facility] Comment on above: Performed By: #### C BC #### [facility] [address] [place] [address] Dr. Tomas Rodriguez EGFR-AF HONDURAN >60 Normal >=60 [facility] Comment on above: Performed By: #### C BC #### [facility] [address] [place] [address] Dr. Tomas Rodriguez EGFR-NON AF HONDURAN >60 Normal >=60 [facility] Comment on above: Performed By: #### C BC #### [facility] [address] [place] [address] Dr. Tomas Rodriguez Glucose [Mass/Vol] 116 mg/dL Critically high 74-106 [facility] Comment on above: Performed By: #### C BC #### [facility] [address] [place] [address] Dr. Tomas Rodriguez Potassium [Moles/Vol] 4.3 mmol/L Normal 3.4-5.0 [facility] Comment on above: Performed By: #### C BC #### [facility] [id number] Tomas Rodriguez Sodium [Moles/Vol] 138 mmol/L Normal 137-145 [facility] Comment on above: Performed By: #### C BC #### [facility] [id number] Tomas Rodriguez Urea nitrogen [Mass/Vol] 14.0 mg/dL Normal 7.0-18.0 [facility] Comment on above: Performed By: #### C BC #### [facility] [address] [place] [address] Dr. Tomas Rodriguez Urea nitrogen/Creatinine [Mass ratio] 15.9 mg/mg Normal [facility] Comment on above: Performed By: #### C BC #### [facility] [address] [address] [address] Tomas Rodriguez VITAMIN D 25 OHon 06-22-2021 VIT D 25-OH 53.5 ng/mL Normal [facility] Comment on above: Performed By: #### V ITAD ####[facility] [address] [id number] Tomas Rodriguez VIT D RANGES SEE BELOW Normal [facility] Comment on above: Result Comment: <20 ng/mL Vit D deficient 20 - <30 ng/mL Vit D insufficient 30 - 100 ng/mL Vit D sufficient >100 ng/mL Potential Toxicity Performed By: #### V ITAD ####[facility] [address] [id number] Tomas Rodriguez Vital Signs Date Time Vital Sign Value Performing Clinician Facility 12-13-2024 10:59-0400 Body height 157.48 cm Rubio [employer] Work Phone: [facility] 12-13-2024 10:59-0400 Body mass index (BMI) [Ratio] 33.5 kg/m2 [facility] Work Phone: [facility] 12-13-2024 10:59-0400 Body weight 83 kg Rubio Ball DO Work Phone: [facility] 12-13-2024 10:59-0400 Diastolic blood pressure 77 mm[Hg] Rubio Ball DO Work Phone: [facility] 12-13-2024 10:59-0400 Heart rate 60 /min Rubio Ball DO Work Phone: [facility] 12-13-2024 10:59-0400 Respiratory rate 12 /min Rubio Ball DO Work Phone: [facility] 12-13-2024 10:59-0400 SaO2% (BldA) [Mass fraction] 97 % Rubio Ball DO Work Phone: [facility] 12-13-2024 10:59-0400 Systolic blood pressure 125 mm[Hg] Rubio Ball DO Work Phone: [facility] 09-18-2024 11:16-0400 Body height 157.48 cm Rubio Ball DO Work Phone: [facility] 09-18-2024 11:16-0400 Body mass index (BMI) [Ratio] 33.5 kg/m2 Rubio Ball DO Work Phone: [facility] 09-18-2024 11:16-0400 Body temperature 98.2 [degF] Rubio Ball DO Work Phone: [facility] 09-18-2024 11:16-0400 Body weight 83 kg Rubio Ball DO Work Phone: [facility] 09-18-2024 11:16-0400 Diastolic blood pressure 82 mm[Hg] Rubio Ball DO Work Phone: [facility] 09-18-2024 11:16-0400 Heart rate 73 /min Rubio Ball DO Work Phone: [facility] 09-18-2024 11:16-0400 Respiratory rate 16 /min Rubio Ball DO Work Phone: [facility] 09-18-2024 11:16-0400 SaO2% (BldA) [Mass fraction] 96 % Rubio Ball DO Work Phone: [facility] 09-18-2024 11:16-0400 Systolic blood pressure 122 mm[Hg] Rubio Ball DO Work Phone: [facility] 08-31-2024 11:29-0400 Body height 157.48 cm [facility] 08-31-2024 11:29-0400 Body mass index (BMI) [Ratio] 33.8 kg/m2 [facility] 08-31-2024 11:29-0400 Body weight 83.91 kg [facility] 08-31-2024 11:29-0400 Diastolic blood pressure 78 mm[Hg] [facility] 08-31-2024 11:29-0400 Heart rate 79 /min [facility] 08-31-2024 11:29-0400 Respiratory rate 12 /min [facility] 08-31-2024 11:29-0400 Systolic blood pressure 123 mm[Hg] [facility] 05-18-2024 11:47-0500 Body height 157.48 cm Rubio Ball DO Work Phone: [facility] 05-18-2024 11:47-0500 Body mass index (BMI) [Ratio] 35.7 kg/m2 Rubio Ball DO Work Phone: [facility] 05-18-2024 11:47-0500 Body weight 88.62 kg Rubio Ball DO Work Phone: [facility] 05-18-2024 11:47-0500 Diastolic blood pressure 75 mm[Hg] Rubio Ball DO Work Phone: [facility] 05-18-2024 11:47-0500 Heart rate 79 /min Rubio Ball DO Work Phone: [facility] 05-18-2024 11:47-0500 Respiratory rate 12 /min Rubio Ball DO Work Phone: [facility] 05-18-2024 11:47-0500 Systolic blood pressure 125 mm[Hg] Rubio Ball DO Work Phone: [facility] 03-13-2024 13:11-0500 Body temperature 96.9 [degF] Rubio Ball DO Work Phone: [facility] 03-13-2024 13:11-0500 Diastolic blood pressure 70 mm[Hg] Rubio Ball DO Work Phone: [facility] 03-13-2024 13:11-0500 Heart rate 67 /min Rubio Ball DO Work Phone: [facility] 03-13-2024 13:11-0500 SaO2% (BldA) [Mass fraction] 95 % Rubio Ball DO Work Phone: [facility] 03-13-2024 13:11-0500 Systolic blood pressure 118 mm[Hg] Rubio Ball DO Work Phone: [facility] 11-29-2023 11:05-0400 Body height 157.48 cm DO Rubio Ball Work Phone: [facility] 11-29-2023 11:05-0400 Body mass index (BMI) [Ratio] 35.9 kg/m2 DO Rubio Ball Work Phone: [facility] 11-29-2023 11:05-0400 Body weight 88.96 kg DO Rubio Ball Work Phone: [facility] 11-29-2023 11:05-0400 Diastolic blood pressure 79 mm[Hg] DO Rubio Ball Work Phone: [facility] 11-29-2023 11:05-0400 Heart rate 69 /min DO Rubio Ball Work Phone: [facility] 11-29-2023 11:05-0400 Respiratory rate 12 /min DO Rubio Ball Work Phone: [facility] 11-29-2023 11:05-0400 Systolic blood pressure 131 mm[Hg] DO Rubio Ball Work Phone: [facility] 09-05-2023 10:54-0400 Body height 157.48 cm DO Rubio Ball Work Phone: [facility] 09-05-2023 10:54-0400 Body mass index (BMI) [Ratio] 35.9 kg/m2 DO Rubio Ball Work Phone: [facility] 09-05-2023 10:54-0400 Body temperature 97.8 [degF] DO Rubio Ball Work Phone: [facility] 09-05-2023 10:54-0400 Body weight 88.99 kg DO Rubio Ball Work Phone: [facility] 09-05-2023 10:54-0400 Diastolic blood pressure 72 mm[Hg] DO Rubio Ball Work Phone: [facility] 09-05-2023 10:54-0400 Heart rate 68 /min DO Rubio Ball Work Phone: [facility] 09-05-2023 10:54-0400 Respiratory rate 16 /min DO Rubio Ball Work Phone: [facility] 09-05-2023 10:54-0400 SaO2% (BldA) [Mass fraction] 98 % DO Rubio Ball Work Phone: [facility] 09-05-2023 10:54-0400 Systolic blood pressure 120 mm[Hg] DO Rubio Ball Work Phone: [facility] 08-16-2023 10:39-0400 Body height 157.48 cm DO Rubio Ball Work Phone: [facility] 08-16-2023 10:39-0400 Body mass index (BMI) [Ratio] 36 kg/m2 DO Rubio Ball Work Phone: [facility] 08-16-2023 10:39-0400 Body weight 89.41 kg DO Rubio Ball Work Phone: [facility] 08-16-2023 10:39-0400 Diastolic blood pressure 77 mm[Hg] DO Rubio Ball Work Phone: [facility] 08-16-2023 10:39-0400 Heart rate 71 /min DO Rubio Ball Work Phone: [facility] 08-16-2023 10:39-0400 Respiratory rate 16 /min DO Rubio Ball Work Phone: [facility] 08-16-2023 10:39-0400 Systolic blood pressure 135 mm[Hg] DO Rubio Ball Work Phone: [facility] 05-16-2023 10:30-0500 Body height 157.48 cm Rubio Ball Other [facility] [employer] Other 05-16-2023 10:30-0500 Body mass index (BMI) [Ratio] 37.49 kg/m2 Rubio Ball Other [facility] [employer] Other 05-16-2023 10:30-0500 Body weight 92.99 kg Rubio Ball Other [facility] [employer] Other 05-16-2023 10:30-0500 Diastolic blood pressure 82 mm[Hg] Rubio Ball Other [facility] [employer] Other 05-16-2023 10:30-0500 Respiratory rate 12 /min Rubio Ball Other [facility] [employer] Other 05-16-2023 10:30-0500 Systolic blood pressure 142 mm[Hg] Rubio Ball Other [facility] [employer] Other 03-17-2022 14:30-0500 Diastolic blood pressure 64 mm[Hg] DO Rubio Ball Work Phone: [facility] 03-17-2022 14:30-0500 Heart rate 73 /min DO Rubio Ball Work Phone: [facility] 03-17-2022 14:30-0500 Respiratory rate 18 /min DO Rubio Ball Work Phone: [facility] 03-17-2022 14:30-0500 SaO2% (BldA) [Mass fraction] 99 % DO Rubio Ball Work Phone: [facility] 03-17-2022 14:30-0500 Systolic blood pressure 115 mm[Hg] DO Rubio Ball Work Phone: [facility] 03-17-2022 12:46-0500 Body height 157.48 cm DO Rubio Ball Work Phone: [facility] 03-17-2022 12:46-0500 Body temperature 98.3 [degF] DO Rubio Ball Work Phone: [facility] 03-17-2022 12:46-0500 Body weight 84.82 kg DO Rubio Ball Work Phone: [facility] 02-08-2022 13:15-0500 Body height 157.48 cm Fidelia Velásquez Other [employer] Other 02-08-2022 13:15-0500 Body mass index (BMI) [Ratio] 35.3 kg/m2 Fidelia Velásquez Other [employer] Other 02-08-2022 13:15-0500 Body temperature 97.4 [degF] Fidelia Velásquez Other [employer] Other 02-08-2022 13:15-0500 Body weight 87.54 kg Fidelia Velásquez Other [employer] Other 02-08-2022 13:15-0500 Diastolic blood pressure 60 mm[Hg] Fidelia Velásquez Other [employer] Other 02-08-2022 13:15-0500 SaO2% (BldA) [Mass fraction] 97 % Fidelia Velásquez Other [employer] Other 02-08-2022 13:15-0500 Systolic blood pressure 130 mm[Hg] Fidelia Velásquez Other [facility] [employer] Other Encounters Encounter Date Encounter Type Care Provider Facility Start: 12-13-2024 End: 12-13-2024 ambulatory Rubio Ball DO Work Phone: [facility] Work Phone: Start: 12-13-2024 End: 12-13-2024 Patient encounter procedure Rubio Ball DO -[facility] Work Phone: Start: 09-18-2024 End: 09-18-2024 Patient encounter procedure Fidelia Velásquez [employer]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 -[facility] Work Phone: Start: 09-18-2024 End: 09-18-2024 ambulatory Fidelia Velásquez Facility:[facility] Start: 08-31-2024 End: 08-31-2024 ambulatory [facility] Work Phone: Start: 08-31-2024 End: 08-31-2024 Patient encounter procedure [facility] Phys[facility] Work Phone: Start: 05-18-2024 End: 05-18-2024 ambulatory Rubio Ball DO Work Phone: [facility] Work Phone: Start: 05-18-2024 End: 05-18-2024 Patient encounter procedure Rubio Ball DO Work Phone: [facility] Work Phone: Start: 03-13-2024 End: 03-13-2024 Patient encounter procedure Rubio Ball DO Work Phone: [facility] Work Phone: Start: 03-13-2024 End: 03-13-2024 ambulatory Fidelia Velásquez Facility:[facility] Start: 11-29-2023 End: 11-29-2023 ambulatory DO Rubio Ball Work Phone: [facility] Work Phone: Start: 11-29-2023 End: 11-29-2023 Patient encounter procedure DO Rubio Ball Work Phone: [facility] Work Phone: Start: 11-27-2023 Patient encounter procedure DO Rubio Ball Work Phone: [facility] Start: 09-05-2023 End: 09-05-2023 ambulatory DO Rubio Ball Work Phone: [facility] Work Phone: Start: 09-05-2023 End: 09-05-2023 Patient encounter procedure DO Rubio Ball Work Phone: [facility] Vascular Surgery Work Phone: Start: 08-16-2023 End: 08-16-2023 Patient encounter procedure DO Rubio Ball Work Phone: [facility] Work Phone: Start: 05-16-2023 End: 05-16-2023 ambulatory Rubio Ball Other [employer] Other Start: 05-16-2023 Office outpatient vi sit 25 minutes Rubio Ball [facility] Start: 03-11-2023 End: 03-11-2023 ambulatory Rubio Ball Other [employer] Other Start: 03-11-2023 Telephone encounter Rubio Ball [facility] Start: 11-01-2022 End: 11-01-2022 ambulatory Rubio Ball Other [employer] Other Start: 11-01-2022 Telephone encounter Rubio Ball [facility] Start: 10-27-2022 End: 10-27-2022 ambulatory Rubio Ball Other [employer] Other Start: 10-27-2022 Telephone encounter Rubio Jimmie [facility] Start: 07-22-2022 End: 07-22-2022 ambulatory Rubio Jimmie Other [employer] Other Start: 07-22-2022 Telephone encounter [facility] Start: 04-02-[address] RUBIO SAMUEL Facili ty:[facility] Start: 03-22-2022 End: 03-23-[address] RUBIO SAMUEL Facility:[facility] Start: 03-22-2022 End: 03-22-2022 ambulatory DO Rubio Samuel Work Phone: [facility] Work Phone: Start: 03-22-2022 End: 03-22-2022 Patient encounter procedure DO Rubio Samuel Work Phone: [facility] [place] Start: 03-17-2022 End: 03-17-2022 Admission to same day surgery center DO Rubio Samuel Work Phone: [facility] Start: 03-17-2022 End: 03-17-2022 ambulatory DO Rubio Samuel Work Phone: [facility] Work Phone: Start: 03-15-2022 End: 03-15-2022 ambulatory DO Rubio Samuel Work Phone: [facility] Work Phone: Start: 03-15-2022 End: 03-15-2022 Patient encounter procedure DO Rubio Samuel Work Phone: [facility] Start: 02-18-2022 End: 02-19-[address] RUBIO SAMUEL Facility:[facility] Start: 02-08-2022 End: 02-08-2022 ambulatory Fidelia Velásquez Other [employer] Other Start: 02-08-2022 [facility] visit new patient Fidelia ram [facility] Start: 01-25-2022 End: 01-28-2022 Evaluation and management of inpatient DR TANGELA MILLER Facility:[facility] Start: 07-10-2021 End: 07-10-[address] DREA VILLAFANA Facility:[facility] Start: 07-06-2021 End: 07-07-[address] RUBIO SAMUEL Facility:[facility] Start: 06-22-2021 Adult health examination Rubio Samuel Other [employer] Other Start: 06-22-2021 Encounter for genera l adult medical examination without abnormal findings Rubio Samuel Other [employer] Other Start: 06-22-2021 End: 06-23-[address] RUBIO SAMUEL Facility:[facility] Start: 03-04-2017 End: 03-04-2017 Ambulatory DEFAULT PHYSICIAN Facility:[facility] Procedures Date Procedure Procedure Detail Performing Clinician Start: 09-18-2024 Doppler ultrasonography of bilateral carotid arteries Rubio Samuel DO Work Phone: Start: 03-13-2024 Doppler ultrasonography of bilateral carotid arteries Rubio Samuel DO Work Phone: Start: 09-05-2023 Doppler ultrasonography of bilateral carotid arteries DO Rubio Samuel Work Phone: Start: 03-17-2022 Esophagogastroduodenoscopy DO Rubio Brown all Work Phone: Start: 04-20-2018 Screening for osteoporosis Rubio Samuel Other Start: 04-05-2017 Screening for malignant neoplasm of colon Rubio Samuel Other Start: 02-10-2016 Screening mammography Rubio Samuel Other Start: 07-10-2014 General examination of patient Rubio Samuel Other Depression screening Marko Samuel Other SARS Antigen (LFIA) DO Mateus Samuel Work Phone: Screening for malign ant neoplasm of breast Rubio Samuel Other Screening for occult blood in feces DO Rubio Samuel Work Phone: Plan of Treatment Date Care Activity Detail Author Start: 03-17-2022 End: 03-17-2022 [facility] Comprehensive metabo lic 2000 panel - Serum or Plasma [facility] MG Breast - bilateral Screening [facility] US.doppler Carotid a rteries - bilateral [facility] US.doppler Carotid a rteries - bilateral [facility] Immunizations Immunization Date Immunization Notes Care Provider Fa cility 01-21-2020 influenza virus vaccine, split virus (incl. purified surface antigen) Rubio Samuel Other [employer] Other 01-21-2020 influenza virus vaccine, unspecified formulation DO Rubio Samuel Work Phone: [facility] 01-22-2019 influenza, high dose seasonal, preservative-free [facility] 04-21-2018 diphtheria, tetanus toxoids and acellular pertussis vaccine, unspecified formulation Rubio Samuel Other [facility] 04-20-2018 pneumococcal conjuga te vaccine, 13 valent Rubio Samuel Other [facility] 04-04-2017 pneumococcal conjuga te vaccine, 13 valent [facility] 02-07-2013 tetanus and diphther ia toxoids, adsorbed, preservative free, for adult use (5 Lf of tetanus toxoid and 2 Lf of diphtheria toxoid) Rubio Samuel Other [facility] Payers Date Payer Category Payer Self-pay [id number] 1957 Medicare [id number] 2.1 [id number] 1957 Unknown [id number] 1952 Unknown [id number] 2.16.84 [id number] 1950 Unknown [id number] 2.16.84 [id number] 1952 Unknown [id number] 2.16.84 [id number] 1952 Unknown [id number] 2.16.84 [id number] 1952 Unknown [id number] 2.16.84 [id number] 1952 Unknown [id number] 2.16.84 [id number] 1950 Unknown [id number] 2.16.84 [id number] Unknown Unknown [facility] [id number] Unknown HCAP/HFA/FAP Active [id number] Unknown [id number] 2.16.8 [id number] Unknown [id number] 2.16.8 [id number] Social History Date Type Detail Facility Sex Assigned At [employer] Other Start: 08-06-2021 End: 09-05-2023 Tobacco smoking status NHIS Smoker (finding) [facility] Start: 1950 Sex Assigned At Female F [facility] Start: 05-18-2024 End: 08-31-2024 Sex Female (finding) [facility] Start: 09-05-2023 Tobacco smoking stat us [facility] Smokes tobacco daily (finding) [facility] Goals Date Patient Goal Desired Activity /State Clinical Notes 06-21-2021 to 09-18-2024 Note Date & Type Note Facility 09-18-2024 Evaluation note Diagnosis Onset Date Resolution Bilateral carotid artery stenosis acute September 18, 2024 10:05am Vaping nicotine dependence, tobacco product acute September 18, 2024 10:05am Carotid stenosis acute Septembe r 2024 10:19am ANAIS (generalized anxiety disorder) acute December 13, 2024 10:19am Hypercholesterolemia acute Sept ember 2024 10:19am Hypertension acute December 132024 10:19am Lumbar spondylosis acute 2024 10:19am Major depression acute e r 2024 10:19am Medicare annual wellness visit, subsequent acute December 10:19am Nicotine addiction acute 2024 10:19am Obesity acute December 10:19am Opiate analgesic use agreement exists acute December 13, 2024 10:19am Primary osteoarthritis of right hip acute December 13, 2024 10:19am Screening mammogram for breast cancer acute December 13, 2024 10:19am [facility] Work Phone: 1(176) 503-965312-10-2024 Evaluation note* Diagnosis Onset Date Resolution Status Admit Date Bilateral carotid artery stenosis ac [place] March 13, 2024 12:11pm Vaping nicotine dependence, tobacco product acute March 13 12:11pm Carotid stenosis acute May 18, 2024 11:21am GERD (gastroesophageal reflu x disease) acute May 18, 025 11:21am Hypercholesterolemia acute uary 2024 11:21am Hypertension acute May 11:21am Nicotine addiction acute 2024 11:21am Obesity acute May 18, 2024 11:21am Opiate analgesic use agreeme nt exists acute May 18, 11:21am Primary osteoarthritis of ri ght hip acute May 18 11:21am [facility] Work Phone: 1(371) 770-478102-12-2024 Evaluation note* Encounter Date Diagnosis Assessment Notes Treatment Notes Treatment Clinical Notes May, Primary hypertension (ICD-10 - I10) This patient is instructed to consume a healthy, low-fat, low-salt diet. They are also encouraged to continue exercise to achieve/maintain a normal BMI. Patient is instructed on home BP measurements: - rest for 5 minutes w/o talking.- positioned w/ feet on floor and arm supported.- average best 2/3 readings w/ goal < 135/85.- update office w/ home readings in 2 weeks. May, Elevated cholesterol (ICD-10 - E78.00) Instructed on diet and exercise with continued statin therapy.Discussed the beneficial effects of lowering cholesterol in reducing the risk for cerebrovascular and cardiovascular disease. May, Bilateral carotid artery stenosis (ICD-10 - I65.23) Carotid US: 50-69% B/L stenosis, favoring 50% - 08/2022 Continue primary prevention measures. Continue f/u w/ Vascular surgery Reviewed stroke symptoms and instructed to go to ER for suspicious symptoms May, Lumbar spondylosis (ICD-10 - M47.816) The patient is instructed to avoid bending, twisting or lifting. They are to use intermittent heat and ice as needed. They may schedule a massage or gentle manipulation. They may safely use Tylenol as needed. Continues w/ pain despite Tramadol, Gabapentin and Celebrex Plan to refer to PT for eval and treat Plan to refer to pain management for treatment May, RLS (restless legs syndrome) (ICD-10 - G25.81) Has improved w/ Gabapentin, increase to 200mg qd May, Generalized anxiety disorder (ICD-10 - F41.1) May, Gastroesophageal reflux disease with esophagitis without hemorrhage (ICD-10 - K21.00) Avoid lying flat after eating. Avoid eating 2 hours prior to bedtime. Smaller, frequent meals may be better tolerated.Weight loss if overweight.PPI with any heartburn.Monitor for dysphagia. May, Morbid (severe) obesity due to excess calories (ICD-10 - E66.01) May, Body mass index [BMI ] 37.0-37.9, adult (ICD-10 - Z68.37) May, Cigarette nicotine dependence in remission (ICD-10 - F17.211) [facility] Other 12-08-2023 Evaluation note* Encounter Date Diagnosis Assessment Notes Treatment Notes Treatment Clinical Notes Mar, Lumbar spondylosis (ICD-10 - M47.816) [facility] Other 07-31-2023 Evaluation note* Encounter Date Diagnosis Assessment Notes Treatment Notes Treatment Clinical Notes Oct, Elevated cholesterol (ICD-10 - E78.00) Oct, Primary hypertension (ICD-10 - I10) Oct, High risk medication use (ICD-10 - Z79.899) [facility] Other 04-20-2023 Evaluation note* Encounter Date Diagnosis Assessment Notes Treatment Notes Treatment Clinical Notes Jul, Lumbar spondylosis (ICD-10 - M47.816) [facility] Encounter Date Diagnosis Assessment Notes Treatment Notes Treatment Clinical Notes Feb, Carotid stenosis, bilateral (ICD-10 - I65.23) We reviewed carotid duplex studies from the [facility] which by velocity shows less than 50% stenosis bilaterally however by report findings were stated as moderate plaque with 82% junction of the bulb on the left. Dr. Greene in room and we did do bedside ultrasound in the office today to reevaluate the left ICA which confirms about 50% stenosis of the left ICA. Patient is on good medical therapy with use of aspirin and statin medications daily. We reviewed signs and symptoms that occlusive disease and when would be appropriate to return for further evaluation prior to next scheduled appointment. Otherwise, we will continue to follow her along and see her again in 6 months time with repeat carotid duplex studies. She knows to call us in the meantime with any issues or concerns. She verbalizes understanding of all discussion, agrees with this plan, denies any questions. Feb, Current smoker (ICD-10 - F17.200) We reviewed the health risks associated with tobacco smoking. Patient understands her risks and is unmotivated to quit. [facility] Other 03-20-2022 History general Narrative - Reported* Type Description Date Medical History Hypertension Medical History depression Medical History anxiety Medical History Disorientation, unspecified (res olved 06/21/2021) Medical History Other specified symp toms and signs involving the circulatory and respiratory systems (resolved 06/22/2021) Surgical History tonsillectomy Hospitalization History Infection, Sepsis [facility] Other 03-20-2022 History general Narrative - Reported* Type Description Date Medical History Hypertension Medical History depression Medical History anxiety Medical History Disorientation, unspecified (res olved 06/21/2021) Medical History Other specified symp toms and signs involving the circulatory and respiratory systems (resolved 06/22/2021) Surgical History tonsillectomy Surgical History Colonoscopy 08/2021 Surgical History EGD 03/2022 Hospitalization History Infection, Sepsis [facility] Other Evaluation noteNo assessment information available [facility] Work Phone: Evaluation note* Diagnosis Onset Date Resolution Status Iron deficiency anemia acute [facility] Work Phone: Evaluation noteNo [facility] Other Evaluation note* Diagnosis Onset Date Resolution Status Carotid stenosis acute ANAIS (generalized anxiety disorder) acute GERD (gastroesophageal reflux disease) acute Hypercholesterolemia acute Hypertension acute Major depression acute Nicotine addiction acute Primary osteoarthritis of right hip acute [facility] Work Phone: Evaluation note* Diagnosis Onset Date Resolution Status Carotid stenosis acute ANAIS (generalized anxiety disorder) acute GERD (gastroesophageal reflux disease) acute Hypercholesterolemia acute Hypertension acute Major depression acute Nicotine addiction acute Primary osteoarthritis of right hip acute Bilateral carotid artery stenosis acute Vaping nicotine dependence, tobacco product acute [facility] Work Phone: Evaluation note* Diagnosis Onset Date Resolution Status Bilateral carotid artery stenosis acute Vaping nicotine dependence, tobacco product acute Carotid stenosis acute ANAIS (generalized anxiety disorder) acute GERD (gastroesophageal reflux disease) acute Hypercholesterolemia acute Hypertension acute Major depression acute Medicare annual wellness visit, subsequent acute Nicotine addiction acute [facility] Work Phone: Evaluation note* Diagnosis Onset Date Resolution Status Admit Date Carotid stenosis acute August 11:20am GERD (gastroesophageal reflu x disease) acute August 31, 2024 11:20am Hypercholesterolemia acute August 31, 2024 11:20am Hypertension acute August 31 11:20am Nicotine addiction acute August 312024 11:20am Obesity acute August 31, 2024 11:20am Opiate analgesic use agreeme nt exists acute August 31, 2024 11:20am Primary osteoarthritis of right hip acute August 31, 2024 11:20am [facility] Work Phone: History general Narrative - Reported* Type Description Date Medical History Hypertension Medical History depression Medical History anxiety Surgical History tonsillectomy Hospitalization History Infection, Sepsis [facility] Other Hospital Discharge instructions Additional Instructions DISCHARGE INSTRUCTIONS FOR ENDOSCOPY FOR RIVERA/EGD/ERCP/PEG: -Your throat may feel sore today from the scope that the doctor passed through your throat to visualize your stomach. Take a throat lozenge or suck on ice to ease the discomfort. -Do NOT smoke. -Expect a gassy or full feeling after esophagoscopy. Report any persistent pain or vomiting. -Take it easy today. You need not stay in bed, but avoid strenuous activities such as jogging. FOR SEDATION FOR 24 HOURS: -NO driving -Do NOT operate machinery such as power tools, lawn mowers, snow blowers, sewing machines, etc. -Avoid alcoholic beverages and drugs for allergies, nerves, or sleep. -Do NOT stay alone. Do NOT leave your child unattended. -Do NOT make important personal or business decisions or sign any legal documents. -Eat solid foods and drink liquids in smaller amounts than usual until normal appetite returns. If you should experience an upset stomach, liquids high in sugar content (soda, Stephane-aid, non-acid juices) are recommended. -You can resume normal activities tomorrow. FOLLOW UP Please call the office and make a follow up appointment to see me in 6-8 weeks. -Notify the doctor if you have any problems. -[facility] number [phone] Work Phone: Reason for referral (narrative)* Reason Referral for chronic low back pain Diagnosis 1 Lumbar spondylosis ( M47.816) Referral Organization [facility] Referring Provider First Name Rubio Referring Provider Last Name Jimmie Referring Provider Specialty Internal Me dicine Referred Organization [facility] Referred Provider Stephen White Referred Address [address], [place],[address] Referred Provider Specialty Pain Medicin e Referral Priority Routine General Notes Mrs Verdugo has chronic low back pain w/ radiation into her upper legs. She has continuous pain, that she rates as severe. She has been prescribed Tramadol and Gabapentin w/ minimal results. She is being referred to PT for evaluation and treatment as well as HEP. Clinical Notes XR lumbar spine orde red Reason Referral for weight loss Diagnosis 1 Morbid (severe) obes ity due to excess calories (E66.01) Referral Organization [facility] Referring Provider First Name Rubio Referring Provider Last Name Jimmie Referring Provider Specialty Internal Me dicine Referred Organization [facility] Referred Provider Harshad Carnes Referred Address [address] [place], [place],[address] Referred Provider Specialty Internal Med icine Referral Priority Routine General Notes Mrs. Verdugo has exogen ous obesity, which is aggravating multiple medical conditions. She has degenerative arthritis of the spine, hips and knees, which would all benefit from weight loss. She has HTN and is at risk for DM and SUZY, which would also be benefited by weight loss. She is sedentary as a result of her arthritis and has tried calorie restriction w/o success. [facility] Other Reason for referral (narrative)No reason for referral [facility] Work Phone: Reason for visit NarrativeCAROTID STENOSIS R ICA 50- 69%, L CAROTID BULB 82%; CAROTID DUPLEX IN REFERRALNortEndless [facility] Other Summary Purpose Family History Relationship Condition Age at Onset Recorded Date/T tucker Not Specified Malignant neoplasm of breast Unknown father Cerebrovascular accident (CVA) Unknown Peripheral vascular disease Unknown Relationship Condition Age at Onset Recorded Date/T tucker Not Specified Malignant neoplasm of breast Unknown father Cerebrovascular accident (CVA) Unknown Peripheral vascular disease Unknown father Heart disease Unknown Unknown Not Specified Heart disease Unknown Relationship Condition Age at Onset Recorded Date/T tucker mother Malignant neoplasm of breast Unknown father Cerebrovascular accident (CVA) Unknown Peripheral vascular disease Unknown father Heart disease Unknown Unknown mother Heart disease Unknown Advance Directives Advance Directive Response Recorded Date/ Time Advance Directives No July 28 2:09pm Advance Directive Response Recorded Date/ Time Advance Directives No July 28 3:09pm Chief Complaint and Reason for Visit Chief Complaint Iron Deficiency Anem ia Chief Complaint Iron Deficiency Anem ia Iron Deficiency Anemia Reason for Visit Iron deficiency anem ia Chief Complaint Iron Deficiency Anem ia Iron Deficiency Anemia spes drop Reason for Visit Iron deficiency anem ia Chief Complaint 3 month 1 YR F/U CAR U/S 1030A I65.23 Reason for Visit Carotid stenosis ANAIS (generalized anxiety disorder) GERD (gastroesophageal reflux disease) Hypercholesterolemia Hypertension Major depression Nicotine addiction Primary osteoarthritis of right hip Chief Complaint 3 month 1 YR F/U CAR U/S 1030A I65.23 Reason for Visit Carotid stenosis ANAIS (generalized anxiety disorder) GERD (gastroesophageal reflux disease) Hypercholesterolemia Hypertension Major depression Nicotine addiction Primary osteoarthritis of right hip Bilateral carotid artery stenosis Vaping nicotine dependence, tobacco product Chief Complaint 1 YR F/U CAR U/S 103 0A I65.23 check up Reason for Visit Bilateral carotid ar hossein stenosis Vaping nicotine dependence, tobacco product Carotid stenosis ANAIS (generalized anxiety disorder) GERD (gastroesophageal reflux disease) Hypercholesterolemia Hypertension Major depression Medicare annual wellness visit, subsequent Nicotine addiction Chief Complaint Admit Date I65.23 March 13, 2024 12:10pm 6 month follow up; Carotid U/S at 12:30p March 13, 2024 12:11pm 3 month f/u May 18, 2024 11:21am Reason for Visit Admit Date Bilateral carotid artery stenosis Decemb er 2023 12:11pm Vaping nicotine dependence, tobacco prod uct March 13, 2024 12:11pm Carotid stenosis May 18, 2024 11:21am GERD (gastroesophageal reflux disease) F ebruary 2024 11:21am Hypercholesterolemia May 18, 2024 11:21am Hypertension May 18, 2024 11:21am Nicotine addiction May 18, 2024 11:21am Obesity May 18, 2024 11:21am Opiate analgesic use agreement exists [facility] 2024 11:21am Primary osteoarthritis of right hip Febr [facility] 2024 11:21am Chief Complaint Admit Date Med f/u August 31, 2024 11:20 am Reason for Visit Admit Date Carotid stenosis August 31, 2024 11:20 am GERD (gastroesophageal reflux disease) M 2024 11:20am Hypercholesterolemia August 31, 2024 11:2 0am Hypertension August 31, 2024 11:20 am Nicotine addiction August 31, 2024 11:20 am Obesity August 31, 2024 11:20 am Opiate analgesic use agreement exists [facility] 2024 11:20am Primary osteoarthritis of right hip August 31, 2024 11:20am Chief Complaint Admit Date I65.23 September 18, 2024 10:0 4am 6 MONTH F/U; CAROTID 10:30A September 18, 2 025 10:05am Wellness December 13, 2024 10:19am Reason for Visit Admit Date Bilateral carotid artery stenosis September 022024 10:05am Vaping nicotine dependence, tobacco prod uct September 18, 2024 10:05am Carotid stenosis December 13, 2024 10:19am ANAIS (generalized anxiety disorder) Septe mber 2024 10:19am Hypercholesterolemia December 13 10:19am Hypertension December 13, 2024 10:19am Lumbar spondylosis December 13, 2024 10:19am Major depression December 13, 2024 10:19am Medicare annual wellness visit, subseque nt December 13, 2024 10:19am Nicotine addiction December 13, 2024 10:19am Obesity December 13, 2024 10:19am Opiate analgesic use agreement exists Se ptember 2024 10:19am Primary osteoarthritis of right hip Sept ember 2024 10:19am Screening mammogram for breast cancer Se ptember 2024 10:19am Additional Source Comments INFORMATION SOURCE (unrecogn ized section and content) DATE CREATED AUTHOR 09/27/2017 [facility] DATE CREATED AUTHOR AUTHOR'S ORGANIZ ATION 04/02/2022 [facility] DATE CREATED AUTHOR AUTHOR'S ORGANIZ ATION 10/15/2024 [facility] Care Teams (unrecognized sec tion and content) Team Status: Inactive Member Role Status Dates Rubio Samuel DO Primary Care Provider Active Fransico Brady MD Attending Provider Active Team Status: Active Member Role Status Dates Rubio Samuel DO Primary Care Provider Active Team Status: Inactive Member Role Status Dates Rubio Samuel DO Primary Care Provide r, Attending Provider Active Start: August 16, 2023 End: August 16, 2023 Team Status: Inactive Member Role Status Dates Rubio Samuel DO Primary Care Provider Active Start: September 05, 2023 End: September 05, 2023 SHANTA Alatorre Attending Provider Active Start: September 05, 2023 End: September 05, 2023 Team Status: Active Member Role Status Dates Rubio Samuel DO Primary Care Provider Active Start: September 05, 2023 SHANTA Alatorre Attending Provider Active Start: September 05, 2023 Team Status: Inactive Member Role Status Dates Rubio Samuel DO Primary Care Provide r, Attending Provider Active Start: November 29, 2023 End: November 29, 2023 Team Status: Inactive Member Role Status Dates Rubio aSmuel , Primary Care Provider Active Start: March 13, 2024 End: March 13, 2024 SHANTA Alatorre Attending Provider Active Start: March 13, 2024 End: March 13, 2024 Team Status: Inactive Member Role Status Dates Rubio Samuel DO Primary Care Provider Active Start: March 13, 2024 End: March 13, 2024 Drea Greene MD Attending Provider Active S tart: March 13, 2024 End: March 13, 2024 Team Status: Inactive Member Role Status Dates Rubio Samuel DO Primary Care Provide r, Attending Provider Active Start: May 18, 2024 End: May 18, 2024 Team Status: Inactive Member Role Status Eliz Rubio Samuel DO Primary Care Provide r, Attending Provider Active Start: August 31, 2024 End: August 31, 2024 Team Status: Inactive Member Role Status Dates Rubio Jimmie DO Primary Care Provider Active Start: September 18, 2024 End: September 18, 2024 SHANTA Alatorre Attending Provider Active Start: September 18, 2024 End: September 18, 2024 Team Status: Inactive Member Role Status Eliz Samuel DO Primary Care Provider Active Start: December 13, 2024 End: December 13, 2024 Rubio Samuel DO Attending Provider Active Sta rt: December 13, 2024 End: December 13, 2024 Goals (unrecognized section and content) Goals may be documented in a n alternate section REASON FOR VISIT (unrecogniz ed section and content) 6 month Follow uplab orders FOR RECORDS PERTAINING TO PATIENTS WHO ARE OR HAVE BEEN ENROLLED IN A CHEMICAL DEPENDENCY/SUBSTANCEABUSE PROGRAM, SOME INFORMATION MAY BE OMITTED. This clinical summary was aggregated from multiple sources. Caution should be exercised in using it in the provision of clinical care. This summary normalizes information from multiple sources, and as a consequence, information in this document may materially change the coding, format and clinical context of patient data. In addition, data may be omitted in some cases. CLINICAL DECISIONS SHOULD BE BASED ON THE PRIMARY CLINICAL RECORDS. [employer] provides no warranty or guarantee of the accuracy or completeness of information in this document.
--- NOTE | 2024-12-21 09:54 | CT_ITS ---
The [address] [address] Patient Name: ESDRAS MONTIEL MRN: [id number] date: 1950 Sex: F Assigned Patient Location: [facility] Current Patient Location: [facility] Accession/Order Number: [id number] Exam Date: 12/21/2024 09:58 Report Date: 12/21/2024 11:32 At the request of: JOSE CHINCHILLA DO Procedure: CT lung screening low-dose LOW-DOSE SCREENING CHEST CT WITHOUT CONTRAST COMPARISON: 12/13/2023 CLINICAL DATA: Current smoker with 56 pack year history of tobacco use. Spiral axial unenhanced low-dose images were obtained through the chest. Images were reviewed using both narrow and wide window settings. This CT exam was performed using one or more following dose reduction techniques: Automated exposure control, adjustment of the mA and/or kV according to patient size, or use of iterative reconstruction technique. The heart is within normal limits for size. No pericardial effusion is seen. There is mild coronary artery disease. No aortic aneurysm is identified. There is mild plaque at the aortic arch, descending aorta and proximal great vessels. There are similar mediastinal lymph nodes, largest in the precarinal region. There is subtle reverse S-shaped scoliotic curvature and endplate spurring at the spine. Minor apical scarring is noted. There is additional linear scarring or atelectasis at the right lower lobe and lingula. There is no developing consolidation, pleural effusion or pneumothorax. A similar 4 mm nodule is seen at the posterior left upper lobe adjacent to the top of the major fissure. No new pulmonary nodularity is noted. Limited cuts through the upper abdomen again show left adrenal limb thickening. CT/CT lung screening low-dose IMPRESSION: SCARRING OR ATELECTASIS. TINY STABLE LEFT UPPER LOBE PULMONARY NODULE. Lung RADS category 2 12 month Low-dose CT follow-up suggested. Impression dictated by: Barbara Starr M.D. 12/21/2024 11:32 AM Dictation Location: [place] [address] Electronically authenticated by: [id number] Y Date: 12/21/2024 11:32
[2024-12-21 10:14] LABS: Hematocrit 36.0 % (36.0-48.0); Hemoglobin 11.7 g/dL (12.0-16.0); Immature Granulocytes Abs Auto 0.01 10^3/uL (0.00-0.03); Immature Granulocytes Pct Auto 0.2 % (0.0-0.5); Lymphocytes Absolute Auto 1.8 10^3/uL (1.2-3.8); Mean Corpuscular HGB Conc 32.5 g/dL (29.9-35.2); Mean Corpuscular Hemoglobin 28.5 pg (26.7-34.0); Mean Corpuscular Volume 87.6 fL (81.0-99.0); Platelet Count 279 10^3/uL (150-450); Red Blood Count 4.11 10^6/uL (4.20-5.40); White Blood Count 6.5 10^3/uL (4.0-11.0)
[2024-12-21 10:25] LABS: Alanine Aminotransferase 32 U/L (14-59); Anion Gap 9.9; Aspartate Amino Transferase 13 U/L (15-37); Blood Urea Nitrogen 23.0 mg/dL (7.0-18.0); Calcium 9.3 mg/dL (8.5-10.1); Carbon Dioxide 30.3 mmol/L (21.0-32.0); Chloride 104 mmol/L (98-107); Estimated GFR (African America >60 (>=60 mL/min/1.73m^2); Estimated GFR (Non-African Ame 57 (>=60 mL/min/1.73m^2); Glucose 115 mg/dL (74-106); Potassium 4.2 mmol/L (3.5-5.1); Sodium 140 mmol/L (136-145)
[2024-12-21 10:26] LABS: Albumin Globulin Ratio 0.9; Albumin Level 3.7 g/dL (3.4-5.0); Alkaline Phosphatase 107 U/L (46-116); Cholesterol 175 mg/dL (<=200); Globulin 4.1 g/dL; HDL Cholesterol 55 mg/dL (40-60); Thyroid Stimulating Hormone 3.050 uIU/mL (0.358-3.740); Total Protein 7.8 g/dL (6.4-8.2); Triglycerides 152 mg/dL (<=150); VLDL CHOLESTEROL 30.4 mg/dL
--- NOTE | 2024-12-21 10:35 | MM_ITS ---
Patient Name: ESDRAS MONTIEL MR#: [id number] : 1950 Exam Date: 12/21/2024 Ordering Doctor: DR JOSE CHINCHILLA D.O. RADIOLOGY REPORT PROCEDURE: MM TOMOSYNTHESIS SCREENING BI COMPARISON: MM TOMOSYNTHESIS SCREENING BI, 12/13/2023. MM TOMOSYNTHESIS SCREENING BI, 11/04/2022. MG MAMM SCREEN MATT W CAD, 01/31/2020. MG MAMM MATT SCRN W CAD DIG, 02/27/2013. INDICATIONS: Screening Calculator Name NCI Breast Cancer Risk Assessment Tool 5 Year Breast Cancer Risk 3.30% Lifetime Breast Cancer Risk 8.40% Personal Breast Cancer No Personal Ovarian Cancer No Treatments None Family Cancers Mother with breast cancer at age 40. LOCATION: [facility] BREAST COMPOSITION: There are scattered areas of fibroglandular density. FINDINGS: RIGHT BREAST: No significant suspicious finding. LEFT BREAST: No significant suspicious finding. DIAGNOSTIC CATEGORY 1--NEGATIVE. RECOMMENDATIONS: ROUTINE MAMMOGRAM AND CLINICAL EVALUATION IN 12 MONTHS. Dictated by: Que Pollack DO on 12/21/2024 at 12:53 Approved by: Que Pollack DO on 12/21/2024 at 12:55
== END 2024-12-21 09:27 | disposition home or self-care (01) ==
PROVIDERS: PCP Internal Medicine; Visit Provider Internal Medicine
DX: I65.23 Occlusion and stenosis of bilateral carotid arteries (principal); I10 Essential (primary) hypertension; E78.00 Pure hypercholesterolemia, unspecified; R53.83 Other fatigue; Z12.31 Encounter for screening mammogram for malignant neoplasm of breast; F17.211 Nicotine dependence, cigarettes, in remission; R91.1 Solitary pulmonary nodule; Z80.3 Family history of malignant neoplasm of breast
CPT/HCPCS: 36415; 71271; 77063; 77067; 80053; 80061; 84443; 85025

== ENCOUNTER 2025-03-19 10:31 | Outpatient (OUT) | payer MEDICARE, OTHER, SELFPAY ==
[2025-03-19 10:56] LABS: Hematocrit 38.2 % (36.0-48.0); Hemoglobin 12.4 g/dL (12.0-16.0); Immature Granulocytes Abs Auto 0.01 10^3/uL (0.00-0.03); Immature Granulocytes Pct Auto 0.1 % (0.0-0.5); Lymphocytes Absolute Auto 1.8 10^3/uL (1.2-3.8); Mean Corpuscular HGB Conc 32.5 g/dL (29.9-35.2); Mean Corpuscular Hemoglobin 28.1 pg (26.7-34.0); Mean Corpuscular Volume 86.6 fL (81.0-99.0); Platelet Count 292 10^3/uL (150-450); Red Blood Count 4.41 10^6/uL (4.20-5.40); White Blood Count 7.0 10^3/uL (4.0-11.0)
[2025-03-19 12:15] LABS: Iron 59.0 ug/dL (50.0-170.0); Percent Iron Saturation 18.4 %; Total Iron Binding Capacity 321.0 ug/dL (250.0-450.0)
[2025-03-19 12:50] LABS: Folate 22.10 ng/mL (8.60-58.90)
[2025-03-19 12:52] LABS: Ferritin 80.0 ng/mL (8.0-252.0)
[2025-03-20 04:08] LABS: Vitamin B12 1205 pg/mL (232-1245)
== END 2025-03-19 10:32 | disposition home or self-care (01) ==
LOC: LAB 10:36
PROVIDERS: PCP Internal Medicine; Visit Provider Internal Medicine
DX: D64.9 Anemia, unspecified (principal)
CPT/HCPCS: 36415; 82607; 82728; 82746; 83540; 83550; 85025